=== PATIENT | female | born 1955 | race Caucasian/White ===

== ENCOUNTER → 2020-02-03 17:15 | Outpatient (BNVA) | payer OTHER, SELFPAY | PROVIDERS: Family Provider Family Medicine; PCP Family Medicine; Visit Provider Nurse Practitioner Family | DX: I10 Essential (primary) hypertension (principal); E04.1 Nontoxic single thyroid nodule; E78.2 Mixed hyperlipidemia | CPT/HCPCS: 80053; 84443; 85025 ==

== ENCOUNTER → 2020-02-06 12:02 | Outpatient (BNVA) | payer OTHER, SELFPAY | PROVIDERS: Family Provider Family Medicine; PCP Family Medicine; Visit Provider Nurse Practitioner Family | DX: E04.1 Nontoxic single thyroid nodule (principal); I10 Essential (primary) hypertension; E78.2 Mixed hyperlipidemia | CPT/HCPCS: 84439; 84481 ==

== ENCOUNTER 2021-01-12 06:36 | Emergency (ER) | payer OTHER, SELFPAY ==
[2021-01-12 06:41] VITALS: BP 158/95; PULSE 80; RESP 18; TEMP 36.3; O2SAT 99; BMI 25.7
[2021-01-12 06:44] VITALS: PULSE 82
--- NOTE | 2021-01-12 06:48 | XRR_ITS ---
PROCEDURE INFORMATION: Exam: XR Right Knee Exam date and time: 01/12/2021 7:05 AM Age: 65 years old Clinical indication: Injury or trauma; Other: Twist; Sprain or strain; Patella or knee; Right; Additional info: Pain TECHNIQUE: Imaging protocol: XR Right knee. Views: 3 views. COMPARISON: No relevant prior studies available. FINDINGS: Bones/joints: No acute fracture or dislocation. 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 The joint spaces are well maintained. Soft tissues: Normal. XR/XR knee RT 3V* [id number] IMPRESSION: No acute injury.
--- NOTE | 2021-01-12 06:50 | ED_ITS ---
HPI - Extremity Problem General: Chief complaint: Extremity Injury, Lower Stated complaint: RLE INJURY History of Present Illness: HPI Narrative: 65-year-old female presents emergency room with complaint of right knee pain. 4 days ago she fell injuring her right knee she can slip Tylenol retaining wall and irritated the inner aspect of her right knee he has some bruising was able to walk for about the first couple of days now is able to walk on it but is still quite painful. She been taking ibuprofen without relief no previous injury to the knee. She has noted some mild swelling as well. MD Complaint: joint pain Onset (ago): day(s) (4) Pain Consistency: constant Location: right and knee Quality: aching Radiation: none Relieving factors: immobilization and rest Exacerbating factors: weight bearing and walking Associated symptoms: Deny arthralgias, chest pain, fever(s), myalgias, rash or short of breath Review of Systems Const: Denies: fever(s) ENMT: Denies: throat pain, ear or mastoid pain, nasal discharge or nasal c ongestion Card: Denies: chest pain Resp: Denies: dyspnea, productive cough or non-productive cough GI: Denies: abdominal pain, nausea, vomiting, hematemesis, coffee ground emesis, diarrhea, constipation, bloating, hematochezia or melena : Denies: flank pain, difficulty voiding, dysuria, urinary frequency or urinary urgency Skin/Breast: Denies: rash PFSH ED PFSH: Medical History Thyroid nodule Social History Smoking and tobacco status: never smoked Second hand smoke exposure: No Alcohol intake: never Lives independently: No Household members: family Marital status: Current occupational status: employed Current [place]: [employer] [place] History of recent travel: Yes ([place] ) Details: Dec, 2019 x week Out of state: Yes Current gender identity: Female Physical Exam Const: COMMON NORMALS: no acute distress GENERAL APPEARANCE: cooperative and comfortable ORIENTATION/CONSCIOUSNESS: Yes awake, Yes oriented to person, Yes oriented to place and Yes oriented to time HENMT: COMMON NORMALS: normocephalic, atraumatic and hearing grossly normal bilaterally HEAD & SCALP: normocephalic and atraumatic Neck/C-Spine: COMMON NORMALS: no JVD Resp: COMMON NORMALS: normal respiratory effort, No retractions, No use of accessory muscles and clear to auscultation bilaterally AUSCULTATION: clear to auscultation bilaterally Cardio: COMMON NORMALS: no JVD, regular rate, regular rhythm and No murmurs present (Cardio) RATE: regular rate RHYTHM: regular rhythm GI: COMMON NORMALS: Soft to palpation and No hepatosplenomegaly present AUSCULTATION: Yes normoactive bowel sounds PALPATION: Yes Soft to palpation, No Tenderness to palpation present (GI), No Guarding due to palpation present (GI) and Yes No hepatosplenomegaly present Extremity: COMMON NORMALS: normal to inspection, capillary refill normal, no clubbing, cyanosis or edema, no calf tenderness and no pedal edema NARRATIVE EXTREMITY EXAM: No ligamentous instability or laxity mild swelling of the right knee joint. Neuro: SENSORIUM/ORIENTATION: Yes oriented to person, Yes oriented to place and Yes oriented to time Skin: COMMON NORMALS: no rashes or lesions noted GENERAL SKIN EXAM: no rashes or lesions noted Course Vital Signs: Vital signs: Vital Signs Temperature 97.3 F L 01/12/21 06:41 Pulse Rate 82 01/12/21 06:44 Respiratory Rate 18 01/12/21 06:41 Blood Pressure 158/95 01/12/21 06:41 Pulse Oximetry 99 01/12/21 06:41 MDM - Extremity (Nontraumatic) MDM Narrative: Medical decision making narrative: No acute fracture. We will go ahead and discharge home immobilizer for the knee nonweightbearing with crutches anti-inflammatories ice if not improving in next few days follow-up with primary care to reevaluate for possible advanced imaging Discharge Plan Discharge Patient Disposition: Home Clinical Impression: Right knee sprain Condition: Stable Prescriptions: New diclofenac sodium 75 mg tablet,delayed release (DR/EC) 75 mg PO Q12H PRN (Reason: pain) Qty: 20 RF: 0 No Action levothyroxine 25 mcg tablet 25 mcg PO DAILY Qty: 30 RF: 1 lisinopril 20 mg tablet See Rx Instructions .ROUTE .COMPLEX Qty: 30 RF: 2 Discharge Orders: Discharge ED (Routine); Ordered 01/12/21 Ordered By: Benjamin Harvey Referrals: Yancy Thomas FNP [Primary Care Provider] - Discharge Diet: Usual diet Discharge Activity: Limit activity as instructed Patient Instructions: Opioid Safety Activity Restrictions/Additional Instructions: Immobilizer and crutches for the next 4 to 5 days. If not beginning to improve follow-up with primary care for reevaluation and possible advanced imaging. Coding Level of Care Code ED Risk Control Manager for Juliet Fwd Exam Comprehensive
[2021-01-12] MEDS: HYDROcodone-acetaminophen 5-325 mg Tablet 1 TAB PO (07:18)
[2021-01-12 07:49] VITALS: BP 136/88; PULSE 79; RESP 18; O2SAT 94
== END 2021-01-12 07:50 | disposition home or self-care (01) ==
PROVIDERS: Emergency Provider Family Medicine; PCP Nurse Practitioner Family
DX: S83.91XA Sprain of unspecified site of right knee, initial encounter (principal); W19.XXXA Unspecified fall, initial encounter
CPT/HCPCS: 73562; 99283

== ENCOUNTER → 2021-01-15 13:55 | Outpatient (BNVA) | payer OTHER, SELFPAY | PROVIDERS: PCP Nurse Practitioner Family; Visit Provider Nurse Practitioner Family | DX: M25.561 Pain in right knee (principal); S83.91XA Sprain of unspecified site of right knee, initial encounter | CPT/HCPCS: 73590 ==

== ENCOUNTER 2021-01-22 12:10 | Emergency (ER) | payer OTHER, SELFPAY ==
[2021-01-22 12:19] VITALS: BP 113/69; PULSE 84; RESP 18; TEMP 37; O2SAT 94; BMI 27.4
[2021-01-22 12:25] VITALS: BP 138/92; PULSE 92; O2SAT 95
--- NOTE | 2021-01-22 12:36 | XR_ITS ---
WS: [id number] Right knee, 3 views, 01/22/2021 Clinical Data: fall Comparison: None. Findings: No fractures or dislocations are seen. The joint spaces are normal. The patella is intact. The soft t issues are unremarkable. XR/XR knee RT 3V* [id number] Impression: Negative right knee. Kellgren-Sukhwinder Classification: grade 0 (none): definite absence of x-ray carrillo nges of osteoarthritis
--- NOTE | 2021-01-22 12:39 | W.ED.EXTPRO ---
HPI - Extremity Problem General: Chief complaint: Extremity Injury, Lower Stated complaint: R KNEE INJURY Time Seen by Provider: 01/22/21 12:30 History of Present Illness: HPI Narrative: The patient is a 65-year-old female who comes to the ER complaining of right knee pain. She injured it approximately 2 weeks ago when she fell off a retaining wall. She was seen here 4 days after the fall with an x-ray which was negative. Recommended she get an MRI. She saw her nurse practitioner who is filling out the prior authorization for the MRI of her knee. This morning she was going up some steps and felt a pop and twist of her same right knee and complains of increased pain. MD Complaint: extremity pain, extremity swelling and joint pain Onset (ago): hour(s) (1) Pain Consistency: constant Location: right Severity scale (1-10): 10 Quality: sharp Radiation: none Associated symptoms: Reports no associated symptoms; Deny chest pain or rash Review of Systems General: Reports: 10 or more systems reviewed and unremarkable except in HPI and below Const: Denies: fatigue Eyes: Denies: change in vision, blurry vision or eye redness ENMT: Denies: throat pain, swelling of lips/tongue, ear or mastoid pain or nasal congestion Card: Denies: chest pain, palpitations, irregular heart rhythm, edema, dyspnea on exertion or orthopnea Resp: Denies: dyspnea, productive cough or non-productive cough GI: Denies: abdominal pain, diarrhea or GI cramping : Denies: flank pain, difficulty voiding, urinary frequency or urinary urgency Musc: Reports: joint pain and joint swelling; Denies: neck pain, back pain, extremity pain, joint redness, limited range of motion or muscle weakness Skin/Breast: Denies: rash, pruritus, erythema, skin pain or skin tenderness Neuro: Denies: headache(s), numbness in extremities, weakness in extremities, sensory changes, difficulty walking, dizziness, confusion or Slurred speech present Psych: Denies: anxiety or depression Endo: Denies: polyuria All/Imm: Denies: urticaria, throat swelling or tongue swelling PFSH ED PFSH: Medical History Thyroid nodule Social History Smoking and tobacco status: never smoked Second hand smoke exposure: No Alcohol intake: never Lives independently: No Household members: family Marital status: service: No Current occupational status: employed Current occupation: [employer] – [place] [employer] History of recent travel: No Current gender identity: Female Special gerber needs: No Physical Exam Const: COMMON NORMALS: no acute distress, average body habitus, patient oriented x3, no limitations, healthy appearing, alert and well nourished GENERAL APPEARANCE: cooperative, comfortable, well kempt and well developed ORIENTATION/CONSCIOUSNESS: Yes awake, Yes oriented to person, Yes oriented to place and Yes oriented to time HENMT: COMMON NORMALS: normocephalic, external ears normal and Normal external nose present HEAD & SCALP: normal to inspection and normocephalic NOSE: Normal external nose present EXTERNAL EAR: Yes external ears normal MOUTH: Normal oral and palatal mucosa present THROAT: posterior oropharynx normal Eye: COMMON NORMALS: Equal, round and reactive pupils present and EOMs intact bilaterally GENERAL EYE: appearance normal, both eyes and all related structures PUPIL: Yes Equal, round and reactive pupils present Neck/C-Spine: COMMON NORMALS: full ROM, no lymphadenopathy, no meningeal signs and no JVD GENERAL: Yes normal visual inspection Lymph: LYMPHATIC: no lymphadenopathy noted Chest: COMMONS NORMALS: normal inspection of the chest and normal palpation of entire chest wall Resp: COMMON NORMALS: normal respiratory effort, No retractions, No use of accessory muscles, clear to auscultation bilaterally and percussion normal EFFORT & INSPECTION: Yes able to speak in complete sentences AUSCULTATION: clear to auscultation bilaterally PERCUSSION: percussion normal Cardio: COMMON NORMALS: no JVD, regular rate, regular rhythm, S1 normal heart sound present, S2 normal heart sound present and Peripheral pulses 2+ throughout RATE: regular rate RHYTHM: regular rhythm HEART SOUNDS: S1 normal heart sound present and S2 normal heart sound present PERIPHERAL PULSES: Peripheral pulses 2+ throughout GI: COMMON NORMALS: Normal to inspection, nondistended, normoactive bowel sounds present, Soft to palpation, non-tender and no masses INSPECTION: Yes normal to inspection PALPATION: Yes Soft to palpation : COMMON NORMALS: Yes no CVA tenderness BLADDER/KIDNEY EXAM: Yes no CVA tenderness Back/Pelvis: COMMON NORMALS: no CVA tenderness, thoracic and lumbar spine normal to inspection, no thoracic nor lumbar tenderness and thoraco-lumbar ROM normal Extremity: COMMON NORMALS: normal to inspection, full ROM, capillary refill normal, no joint enlargement and no pedal edema NARRATIVE EXTREMITY EXAM: Wearing straight leg splint on the right leg from previous injury. Right knee pain swelling and tenderness. Major ligaments appear intact though exam limited by pain. GENERAL: Yes normal exam except as noted Neuro: COMMON NORMALS: patient oriented x3, CN's II-XII intact bilaterally, moves all extremities, no focal motor deficits, no sensory deficits noted and gait normal SENSORIUM/ORIENTATION: Yes alert, Yes oriented to person, Yes oriented to place and Yes oriented to time MENINGEAL SIGNS: Yes no meningeal signs Psych: COMMON NORMALS: mental status grossly normal, Normal thought process present, cooperative, normal affect and speech normal APPEARANCE: Yes well kempt ATTITUDE: Yes calm SPEECH: Yes normal speech THOUGHT PROCESS: Normal thought process present Skin: COMMON NORMALS: no rashes or lesions noted GENERAL SKIN EXAM: no rashes or lesions noted Course Vital Signs: Vital signs: Vital Signs Temperature 98.6 F 01/22/21 12:19 Pulse Rate 84 01/22/21 12:19 Respiratory Rate 18 01/22/21 12:19 Blood Pressure 113/69 01/22/21 12:19 Pulse Oximetry 94 01/22/21 12:19 MDM - Extremity (Nontraumatic) MDM Narrative: Medical decision making narrative: Patient came today after a misstep and increased pain in her right knee which is already injured. She likely again sprained it. X-ray negative for any acute pathology. She is working on getting an outpatient MRI preapproved with her primary care physician. I recommended she continue to do that and then follow-up with orthopedic surgery. She understands and agrees with the plan and will do so. Discharged with hydrocodone prescription for her acute pain. Do not mix with drugs, alcohol, nor operate machinery while using this medication. ER with worsening symptoms at any time Discharge Plan Discharge Patient Disposition: Home Clinical Impression: Knee sprain Condition: Stable Prescriptions: New hydrocodone-acetaminophen 5-325 mg tablet 1 tab PO Q6H PRN (Reason: pain) Qty: 15 RF: 0 No Action meloxicam 15 mg tablet 15 mg PO DAILY Qty: 30 RF: 1 levothyroxine 25 mcg tablet 25 mcg PO DAILY Qty: 30 RF: 1 lisinopril 20 mg tablet See Rx Instructions .ROUTE .COMPLEX Qty: 30 RF: 2 Discharge Orders: Discharge ED (Routine); Ordered 01/22/21 Ordered By: Ulices Boss Referrals: Yancy Thomas FNP [Primary Care Provider] - Discharge Diet: Advance as tolerated Discharge Activity: Limit activity as instructed Patient Instructions: Knee Sprain (ED), Knee Immobilizer (ED), Opioid Safety Activity Restrictions/Additional Instructions: You have likely again sprained your right knee. Please continue to work with your primary care physician to get an MRI of that right knee and then follow-up with an orthopedic surgeon depending on the result. Return to the ER at anytime with worsening symptoms. Continue to wear the knee immobilizer as recommended until your primary care physician says it is okay to take it off. Take the hydrocodone only for severe pain and do not mix with drugs, alcohol, nor operate machinery while using it. Coding Level of Care Code ED Business Integration Manager for Juliet Fwmarcello Exam Comprehensive
[2021-01-22] MEDS: HYDROcodone-acetaminophen 5-325 mg Tablet 2 TAB PO (12:42)
[2021-01-22 14:08] VITALS: BP 114/77; PULSE 84; O2SAT 95
== END 2021-01-22 14:08 | disposition home or self-care (01) ==
PROVIDERS: Emergency Provider Family Medicine; PCP Nurse Practitioner Family
DX: S83.91XA Sprain of unspecified site of right knee, initial encounter (principal); W17.89XA Other fall from one level to another, initial encounter
CPT/HCPCS: 73562; 99283

== ENCOUNTER 2021-02-02 14:08 | Outpatient (CLI) | payer OTHER, SELFPAY ==
--- NOTE | 2021-02-02 14:43 | MR_ITS ---
WS: [id number] MRI RIGHT KNEE NONCONTRAST TECHNIQUE: Axial PD, coronal PD fat sat, coronal PD, sagittal PD, and sagittal PD fat-sat images obta ined. CLINICAL INFORMATION: M25.561 - Pain in right knee COMPARISON: None. FINDINGS: Distal quadriceps and patella tendons are intact. Small suprapatellar effusion. Normal ACL and PCL. N ormal medial and lateral meniscus. No acute appearing meniscal tears. Normal medial and lateral colla teral ligaments. Mild chondromalacia involving the medial and lateral joint compartments. Moderate chondromalacia patella. Hypertrophic patella. Normal medial and lateral patellar retinaculum . Medial and lateral collateral ligaments are normal. Small popliteal cyst measuring 8.8 x 11.3 mm x 17.7 mm AP by transverse by craniocaudal. MR/MR knee RT wo con* [id number] IMPRESSION: 1. Distal quadriceps and patella tendons are intact. 2. Small suprapatellar effusion. 3. Mild chronic thinning of the medial lateral meniscus. No acute appearing me niscal tears. 4. Moderate chondral malacia patella. No subchondral edema. 5. Small popliteal cyst measuring 8.8 x 11.3 x 17.7 mm AP by transverse by aircraft engine installer niocaudal. Outbridge grading: grade II: blister-like swelling/fraying of articular cartila ge extending to surface
== END 2021-02-02 14:09 | disposition home or self-care (01) ==
PROVIDERS: PCP Nurse Practitioner Family; Visit Provider Nurse Practitioner Family
DX: M25.561 Pain in right knee (principal); M25.461 Effusion, right knee; M22.41 Chondromalacia patellae, right knee; M71.21 Synovial cyst of popliteal space [Baker], right knee
CPT/HCPCS: 73721

== ENCOUNTER → 2021-02-10 13:45 | Outpatient (BNVA) | payer OTHER, SELFPAY | PROVIDERS: PCP Nurse Practitioner Family; Referring Provider Nurse Practitioner Family; Visit Provider Specialist | DX: M25.561 Pain in right knee (principal) | CPT/HCPCS: 73560; 73565 ==

== ENCOUNTER 2021-02-10 16:26 | Outpatient (CLI) | payer OTHER, SELFPAY | END 2021-02-10 16:27 | disposition home or self-care (01) | LOC: SPT 16:27 | PROVIDERS: PCP Nurse Practitioner Family; Visit Provider Specialist | DX: Z46.89 Encounter for fitting and adjustment of other specified devices (principal); M25.561 Pain in right knee | CPT/HCPCS: 97760; L1812 ==

== ENCOUNTER → 2021-04-02 11:02 | Outpatient (BNVA) | payer OTHER, SELFPAY | PROVIDERS: PCP Nurse Practitioner Family; Visit Provider Nurse Practitioner Family | DX: Z20.822 Contact with and (suspected) exposure to COVID-19 (principal) | CPT/HCPCS: 87635 ==

== ENCOUNTER → 2021-04-22 08:22 | Outpatient (BNVA) | payer OTHER, MEDICARE, SELFPAY | PROVIDERS: PCP Nurse Practitioner Family; Visit Provider Nurse Practitioner Family | DX: E78.2 Mixed hyperlipidemia (principal); G25.81 Restless legs syndrome; G47.00 Insomnia, unspecified; I10 Essential (primary) hypertension; R20.2 Paresthesia of skin; E04.1 Nontoxic single thyroid nodule | CPT/HCPCS: 80053; 80061; 82465; 82607; 84443; 85025 ==

== ENCOUNTER → 2021-04-23 08:54 | Outpatient (BNVA) | payer MEDICARE, SELFPAY | PROVIDERS: PCP Nurse Practitioner Family; Visit Provider Nurse Practitioner Family | DX: R79.89 Other specified abnormal findings of blood chemistry (principal) | CPT/HCPCS: 84439 ==

== ENCOUNTER → 2021-05-04 10:56 | Outpatient (BNVA) | payer MEDICARE, SELFPAY | PROVIDERS: PCP Nurse Practitioner Family; Visit Provider Nurse Practitioner Family | DX: E03.9 Hypothyroidism, unspecified (principal); G25.81 Restless legs syndrome; I10 Essential (primary) hypertension; M53.3 Sacrococcygeal disorders, not elsewhere classified; G47.00 Insomnia, unspecified; E78.2 Mixed hyperlipidemia; Z79.899 Other long term (current) drug therapy | CPT/HCPCS: 82306; 83735; 84439; 84443; 84481 ==

== ENCOUNTER 2021-05-17 17:08 | Inpatient (IN) | payer MEDICARE, SELFPAY ==
[2021-05-17 17:14] VITALS: BP 159/89; PULSE 71; RESP 18; TEMP 36.8; O2SAT 98; BMI 27.3
--- NOTE | 2021-05-17 17:29 | XRR_ITS ---
PROCEDURE INFORMATION: Exam: XR Chest Exam date and time: 05/17/2021 5:29 PM Age: 66 years old Clinical indication: Shortness of breath; Additional info: Dyspnea/cough TECHNIQUE: Imaging protocol: XR of the chest. Views: 1 view. COMPARISON: CR XR knees AP WB w RT lmt ORTH 02/10/2021 1:52 PM FINDINGS: Lungs: Unremarkable. No consolidation. Pleural spaces: Unremarkable. No pleural effusion. No pneumothorax. Heart/Mediastinum: Unremarkable. No cardiomegaly. Bones/joints: Unremarkable. XR/XR chest 1V portable [id number] IMPRESSION: No acute findings. Radiation Dose CTDIVOL = (mGy): DLP = (mGy-cm)
--- NOTE | 2021-05-17 17:35 | CTR_ITS ---
PROCEDURE INFORMATION: Exam: CT Abdomen And Pelvis With Contrast Exam date and time: 05/17/2021 5:35 PM Age: 66 years old Clinical indication: Other: Diarrhea; Abdominal pain; Localized; Left lower quadrant (llq); Prior surgery; Surgery type: Gb, tubal; Additional info: Abd pain TECHNIQUE: Imaging protocol: Computed tomography of the abdomen and pelvis with contrast. Radiation optimization: All CT scans at this facility use at least one of these dose optimization techniques: automated exposure control; mA and/or kV adjustment per patient size (includes targeted exams where dose is matched to clinical indication); or iterative reconstruction. Contrast material: OMNI 300; Contrast volume: 95 ml; Contrast route: INTRAVENOUS (IV); COMPARISON: CT abdomen pelvis wo con [id number] 08/31/2018 11:55 AM RADIATION DOSE METRICS: Total DLP (mGy-cm): 1242.07 FINDINGS: Mediastinal space: Moderate sized hiatal hernia. Liver: Normal. No mass. Gallbladder and bile ducts: Cholecystectomy. Nondilated biliary system. Pancreas: Normal. No ductal dilation. Spleen: Normal. No splenomegaly. Adrenal glands: Normal. No mass. Kidneys and ureters: 9 mm simple right renal upper pole cortical cyst. Negative for hydronephrosis. No renal stones. No dedicated renal follow-up recommended. Stomach and bowel: Diverticulosis coli. Mild degree of pericolonic fat stranding posterior to the mid descending left colon. Focal hyperdense diverticulum on axial series 2, image 35 and coronal image 31. Negative for bowel obstruction. Appendix: No evidence of appendicitis. Intraperitoneal space: No free intraperitoneal air. No loculated intraperitoneal fluid collection. Vasculature: Patent vascular structures. Mild degree of atherosclerotic plaque in the abdominal aorta. Lymph nodes: Unremarkable. No enlarged lymph nodes. Urinary bladder: Unremarkable as visualized. Reproductive: Unremarkable as visualized. Bones/joints: Unremarkable. No acute fracture. Soft tissues: Unremarkable. CT/CT abdomen pelvis w con* [id number] IMPRESSION: Acute diverticulitis is suspected in the mid descending left colon. COMMENTS: Consistent with the [employer]'s Incidental Findings Committee white paper (J Am Zoe Radiol 2018): Any incidental renal lesion less than 1 cm or classified as too small to characterize, or any incidental cystic renal lesion characterized as simple-appearing, is likely benign. No follow-up imaging is recommended for these lesions per consensus recommendations based on imaging criteria. Radiation Dose CTDIVOL = (mGy): DLP = 1242.07 (mGy-cm)
--- NOTE | 2021-05-17 17:39 | ED_ITS ---
Documented by User: Benjamin Harvey DO 05/18/21 07:17 HPI - Abdominal Pain General: Chief Complaint: Abdominal Pain Stated Complaint: Sent by Dr Markham Time Seen by Provider: 05/17/21 17:25 History of Present Illness: HPI narrative: 66-year-old female presents emergency room with complaints of abdominal pain. She was seen as an outpatient last week and started on Cipro and Flagyl for diverticulitis follow-up today with your primary care doctor is not improved significantly was referred to the emergency room. MD elicited complaint: abdominal pain Pertinent past history: diverticulitis Onset (ago): day(s) (4) Pain Consistency: constant Location: Diffuse Severity: moderate Quality: cramping Radiation: none Exacerbating factors: movement Relieving factors: rest Associated Symptoms: Reports GI cramping and melena (After taking Pepto-Bismol); Denies anorexia, belching, bloating, change in bowel habits, change in stool character, chills, coffee ground emesis, constipation, diarrhea, dyspepsia, dysuria, excessive flatus, fever(s), heartburn, hematochezia, hematuria, hematemesis, fecal incontinence, loose stools, nausea, poor appetite, syncope and vomiting Review of Systems Const: Denies: fever(s) or chills ENMT: Denies: throat pain, ear or mastoid pain, nasal discharge or nasal congestion Card: Denies: syncope Resp: Denies: dyspnea, productive cough or non-productive cough GI: Reports: GI cramping and melena (After taking Pepto-Bismol); Denies: nausea, vomiting, hematemesis, coffee ground emesis, heartburn, diar bijan, constipation, bloating, belching, excessive flatus, fecal incontinence, change in bowel habits, change in stool character or hematochezia : Denies: dysuria or hematuria Skin/Breast: Denies: rash or pruritus PFSH ED PFSH: Medical History Thyroid nodule Social History Smoking and tobacco status: never smoked Second hand smoke exposure: No Alcohol intake: never Lives independently: No Household members: family Marital status: service: No Current occupational status: employed Current [place]: [employer] [place] History of recent travel: No Current gender identity: Female Special gerber needs: No Physical Exam Const: COMMON NORMALS: no acute distress GENERAL APPEARANCE: cooperative ORIENTATION/CONSCIOUSNESS: Yes awake, Yes oriented to person, Yes oriented to place and Yes oriented to time HENMT: COMMON NORMALS: normocephalic, atraumatic and hearing grossly normal bilaterally HEAD & SCALP: normocephalic and atraumatic Neck/C-Spine: COMMON NORMALS: no JVD Resp: COMMON NORMALS: normal respiratory effort, No retractions, No use of accessory muscles and clear to auscultation bilaterally AUSCULTATION: clear to auscultation bilaterally Cardio: COMMON NORMALS: no JVD, regular rate, regular rhythm and No murmurs present (Cardio) RATE: regular rate RHYTHM: regular rhythm GI: COMMON NORMALS: No hepatosplenomegaly present AUSCULTATION: Yes normoactive bowel sounds PALPATION: Yes Tenderness to palpation present (GI) (moderately diffuse), No Guarding due to palpation present (GI) and Yes No hepatosplenomegaly present Extremity: COMMON NORMALS: normal to inspection, capillary refill normal, no clubbing, cyanosis or edema, no calf tenderness and no pedal edema Neuro: SENSORIUM/ORIENTATION: Yes oriented to person, Yes oriented to place and Yes oriented to time Skin: COMMON NORMALS: no rashes or lesions noted GENERAL SKIN EXAM: no rashes or lesions noted Course Vital Signs: Vital signs: Vital Signs Temperature 98.0 F 05/18/21 03:13 Pulse Rate 68 05/18/21 03:13 Respiratory Rate 17 05/18/21 03:13 Blood Pressure 122/79 05/18/21 03:13 Pulse Oximetry 93 05/18/21 03:13 MDM - Abdominal Pain MDM Narrative: Medical decision making narrative: Care turned over to Dr. Tucker changes shift please see his notes for final diagnosis and disposition. Lab Data: Labs: Lab Results 05/17/21 05/17/21 05/17/21 18:27 18:27 18:27 WBC 6.1 10^3/uL 10^3/ uL (4.0-10.0) RBC 4.22 10^6/uL 10^6 /uL (4.1-5.3) Hgb 12.9 g/dL g/dL (11.5-15.3) Hct 37.7 % % (37.0-47.0) MCV 89.3 fl fl (81-99) MCH 30.6 pg pg (28.0-34.0) MCHC 34.2 g/dL g/dL (30.0-36.0) RDW 11.9 % L % (12.1-15.1) Plt Count 206 10^3/cmm 10^3 /cmm (130-400) MPV 10.4 fL fL (7.4-10.4) Neut % (Auto) 58.2 % % Lymph % (Auto) 32.7 % % Edwards % (Auto) 6.9 % % Eos % (Auto) 1.3 % % Baso % (Auto) 0.7 % % Neut # (Auto) 3.57 10^3/uL 10^3 /uL (1.8-7.7) Lymph # (Auto) 2.0 10^3/uL 10^3/ uL (0.8-4.8) Edwards # (Auto) 0.4 10^3/uL 10^3/ uL (0.2-0.9) Eos # (Auto) 0.1 10^3/uL 10^3/ uL (0.0-0.8) Baso # (Auto) 0.0 10^3/uL 10^3/ uL (0.0-0.1) Nucleated RBC % (a uto) 0 % % Nucleated RBCs # 0.0 /100WBC /100W BC Sodium 136 mmol/L mmol/L (136-145) Potassium 3.8 mmol/L mmol/L (3.5-5.1) Chloride 103 mmol/L mmol/L (98-107) Carbon Dioxide 23 mmol/L mmol/L (22-29) Anion Gap 13.8 (5-19) BUN 12 mg/dL mg/dL (8-23) Creatinine 0.6 mg/dL mg/dL (0.5-0.9) GFR Calculation 100.3 mL/min mL/m in (90-130) Glucose 82 mg/dL mg/dL (65-115) Calculated Osmolal ity 281 mOsm/kg L mOs m/kg (285-295) Lactic Acid 1.3 mmol/L mmol/L (0.5-2.2) Calcium 9.5 mg/dL mg/dL (8.5-10.5) Total Bilirubin 0.2 mg/dL mg/dL (0.15-1.2) AST 17 U/L U/L (0-32) ALT 24 U/L U/L (0-33) Alkaline Phosphata se 73 IU/L IU/L (35-105) Creatine Kinase 115 U/L U/L (26-192) Total Protein 7.4 g/dL g/dL (6.6-8.7) Albumin 4.5 g/dL g/dL (3.5-5.2) Globulin 2.9 g/dL g/dL (1.3-4.6) Discharge Plan Discharge Admit Provider: Heather Lamar Sign Out Sign Out Data: Patient Sign Out occurred on 05/17/21 at 18:32. Patient's care was discussed, and care was transferred from to Marija Crow MD. Coding Level of Care Code ED Filter Cloth Maker for Chg Fwd Exam Comprehensive Documented by User: Marija Crow MD 05/18/21 02:18 HPI - Abdominal Pain General: Chief Complaint: Abdominal Pain Stated Complaint: Sent by Dr Markham Time Seen by Provider: 05/17/21 17:25 PFS ED PFSH: Medical History Thyroid nodule Social History Smoking and tobacco status: never smoked Second hand smoke exposure: No Alcohol intake: never Lives independently: No Household members: family Marital status: service: No Current occupational status: employed Current [place]: [employer] [place] History of recent travel: No Current gender identity: Female Special gerber needs: No Course Vital Signs: Vital signs: Vital Signs Temperature 98.0 F 05/18/21 03:13 Pulse Rate 68 05/18/21 03:13 Respiratory Rate 17 05/18/21 03:13 Blood Pressure 122/79 05/18/21 03:13 Pulse Oximetry 93 05/18/21 03:13 MDM - Abdominal Pain MDM Narrative: Medical decision making narrative: 66-year-old female with history of diverticulitis presents the emergency room with significant abdominal pain worse in the left lower quadrant not improving despite ciprofloxacin and metronidazole prescribed outpatient. On exam, patient is hemodynamic stable with moderate tenderness to palpation in the left abdomen. Rectal exam did not show any melena. Fecal occult negative. Imaging is consistent with diverticulitis. Patient has minimal white count. Patient received 4 mg morphine, 1 mg Dilaudid without significant improvement in pain. Patient will be admitted to the hospital for pain management, IV antibiotics, and failure of outpatient treatment. Disposition: Admission Lab Data: Labs: Lab Results 05/17/21 05/17/21 05/17/21 18:27 18:27 18:27 WBC 6.1 10^3/uL 10^3/ uL (4.0-10.0) RBC 4.22 10^6/uL 10^6 /uL (4.1-5.3) Hgb 12.9 g/dL g/dL (11.5-15.3) Hct 37.7 % % (37.0-47.0) MCV 89.3 fl fl (81-99) MCH 30.6 pg pg (28.0-34.0) MCHC 34.2 g/dL g/dL (30.0-36.0) RDW 11.9 % L % (12.1-15.1) Plt Count 206 10^3/cmm 10^3 /cmm (130-400) MPV 10.4 fL fL (7.4-10.4) Neut % (Auto) 58.2 % % Lymph % (Auto) 32.7 % % Edwards % (Auto) 6.9 % % Eos % (Auto) 1.3 % % Baso % (Auto) 0.7 % % Neut # (Auto) 3.57 10^3/uL 10^3 /uL (1.8-7.7) Lymph # (Auto) 2.0 10^3/uL 10^3/ uL (0.8-4.8) Edwards # (Auto) 0.4 10^3/uL 10^3/ uL (0.2-0.9) Eos # (Auto) 0.1 10^3/uL 10^3/ uL (0.0-0.8) Baso # (Auto) 0.0 10^3/uL 10^3/ uL (0.0-0.1) Nucleated RBC % (a uto) 0 % % Nucleated RBCs # 0.0 /100WBC /100W BC Sodium 136 mmol/L mmol/L (136-145) Potassium 3.8 mmol/L mmol/L (3.5-5.1) Chloride 103 mmol/L mmol/L (98-107) Carbon Dioxide 23 mmol/L mmol/L (22-29) Anion Gap 13.8 (5-19) BUN 12 mg/dL mg/dL (8-23) Creatinine 0.6 mg/dL mg/dL (0.5-0.9) GFR Calculation 100.3 mL/min mL/m in (90-130) Glucose 82 mg/dL mg/dL (65-115) Calculated Osmolal ity 281 mOsm/kg L mOs m/kg (285-295) Lactic Acid 1.3 mmol/L mmol/L (0.5-2.2) Calcium 9.5 mg/dL mg/dL (8.5-10.5) Total Bilirubin 0.2 mg/dL mg/dL (0.15-1.2) AST 17 U/L U/L (0-32) ALT 24 U/L U/L (0-33) Alkaline Phosphata se 73 IU/L IU/L (35-105) Creatine Kinase 115 U/L U/L (26-192) Total Protein 7.4 g/dL g/dL (6.6-8.7) Albumin 4.5 g/dL g/dL (3.5-5.2) Globulin 2.9 g/dL g/dL (1.3-4.6) Imaging Data ^: Other Imaging: Radiologist's impression: [address] [id number] Scan ReportSigned Patient: Luis Banerjee #: [id number]: 6Acct#:[id number]/Sex: 66 / FADM Date: 05/17/21Loc: ERRoom/Bed:Attending Dr: Ordering Provider/Ordering MD: Benjamin Harvey DO Date of Service: 05/17/21 Procedure(s): CT abdomen pelvis w con* [id number] Accession Number(s): [id number] Report Number: [id number] PROCEDURE INFORMATION: Exam: CT Abdomen And Pelvis With Contrast Exam date and time: 05/17/2021 5:35 PM Age: 66 years old Clinical indication: Other: Diarrhea; Abdominal pain; Localized; Left lower quadrant (llq); Prior surgery; Surgery type: Gb, tubal; Additional info: Abd pain TECHNIQUE: Imaging protocol: Computed tomography of the abdomen and pelvis with contrast. Radiation optimization: All CT scans at this facility use at least one of these dose optimization techniques: automated exposure control; mA and/or kV adjustment per patient size (includes targeted exams where dose is matched to clinical indication); or iterative reconstruction. Contrast material: OMNI 300; Contrast volume: 95 ml; Contrast route: INTRAVENOUS (IV); COMPARISON: CT abdomen pelvis wo con [id number] 08/31/2018 11:55 AM RADIATION DOSE METRICS: Total DLP (mGy-cm): 1242.07 FINDINGS: Mediastinal space: Moderate sized hiatal hernia. Liver: Normal. No mass. Gallbladder and bile ducts: Cholecystectomy. Nondilated biliary system. Pancreas: Normal. No ductal dilation. Spleen: Normal. No splenomegaly. Adrenal glands: Normal. No mass. Kidneys and ureters: 9 mm simple right renal upper pole cortical cyst. Negative for hydronephrosis. No renal stones. No dedicated renal follow-up recommended. Stomach and bowel: Diverticulosis coli. Mild degree of pericolonic fat stranding posterior to the mid descending left colon. Focal hyperdense diverticulum on axial series 2, image 35 and coronal image 31. Negative for bowel obstruction. Appendix: No evidence of appendicitis. Intraperitoneal space: No free intraperitoneal air. No loculated intraperitoneal fluid collection. Vasculature: Patent vascular structures. Mild degree of atherosclerotic plaque in the abdominal aorta. Lymph nodes: Unremarkable. No enlarged lymph nodes. Urinary bladder: Unremarkable as visualized. Reproductive: Unremarkable as visualized. Bones/joints: Unremarkable. No acute fracture. Soft tissues: Unremarkable. CT/CT abdomen pelvis w con* [id number] IMPRESSION: Acute diverticulitis is suspected in the mid descending left colon. COMMENTS: Consistent with the [employer]'s Incidental Findings Committee white paper (J Am Zoe Radiol 2018): Any incidental renal lesion less than 1 cm or classified as too small to characterize, or any incidental cystic renal lesion characterized as simple-appearing, is likely benign. No follow-up imaging is recommended for these lesions per consensus recommendations based on imaging criteria. Radiation Dose CTDIVOL = (mGy): DLP = 1242.07 (mGy-cm) Dictated By:Matias Thompson By:Matias Thompson Date/Time:05/17/216DD/ 1735 Discharge Plan Discharge Admit Provider: Heather Lamar Sign Out Sign Out Data: Patient Sign Out occurred on 05/17/21 at 18:32. Patient's care was discussed, and care was transferred from to Marija Crow MD. Coding Level of Care Code ED Filter Cloth Maker for Chg Fwd Exam Comprehensive
[2021-05-17] MEDS: iohexol 300 mg/mL 100 mL Btl IV (18:04)
[2021-05-17] MEDS: sodium chloride 0.9% 1,000 ML 999 ML IV (18:17)
[2021-05-17] MEDS: ondansetron 2 mg/ML SDV 2 mL 4 MG IVP (18:17)
[2021-05-17 18:18] VITALS: RESP 17; O2SAT 98
[2021-05-17] MEDS: morphine 4 mg/mL SDV 1 mL IVP (18:18)
[2021-05-17 18:19] VITALS: BP 150/119; PULSE 83; RESP 16; O2SAT 99
[2021-05-17 19:12] VITALS: RESP 22
[2021-05-17] MEDS: HYDROmorphone 1 mg/mL INJ 1 mL IVP (19:12)
[2021-05-17 19:17] LABS: Basophils % 0.7 %; Eosinophils # 0.1 10^3/uL (0.0-0.8); Eosinophils % 1.3 %; Hematocrit 37.7 % (37.0-47.0); Hemoglobin 12.9 g/dL (11.5-15.3); Lymphocytes % 32.7 %; Mean Corpuscular HGB Conc 34.2 g/dL (30.0-36.0); Mean Corpuscular Hemoglobin 30.6 pg (28.0-34.0); Mean Corpuscular Volume 89.3 fl (81-99); Mean Platelet Volume 10.4 fL (7.4-10.4); Monocytes # 0.4 10^3/uL (0.2-0.9); Monocytes % 6.9 %; Neutrophils # 3.57 10^3/uL (1.8-7.7); Neutrophils % 58.2 %; Nucleated Red Blood Cells % 0 %; Platelet Count 206 10^3/cmm (130-400); Red Blood Count 4.22 10^6/uL (4.1-5.3); Red Cell Distribution Width 11.9 % (12.1-15.1); White Blood Count 6.1 10^3/uL (4.0-10.0)
[2021-05-17 19:43] LABS: Alanine Aminotransferase 24 U/L (0-33); Albumin Level 4.5 g/dL (3.5-5.2); Alkaline Phosphatase 73 IU/L (35-105); Anion Gap 13.8 (5-19); Aspartate Amino Transferase 17 U/L (0-32); Blood Urea Nitrogen 12 mg/dL (8-23); Calcium 9.5 mg/dL (8.5-10.5); Carbon Dioxide 23 mmol/L (22-29); Chloride 103 mmol/L (98-107); Creatine Phosphokinase 115 U/L (26-192); Globulin 2.9 g/dL (1.3-4.6); Glomerular Filtration Rate 100.3 mL/min (90-130); Glucose 82 mg/dL (65-115); Osmolality Calculated 281 mOsm/kg (285-295); Potassium 3.8 mmol/L (3.5-5.1); Sodium 136 mmol/L (136-145); Total Bilirubin 0.2 mg/dL (0.15-1.2); Total Protein 7.4 g/dL (6.6-8.7)
[2021-05-17 19:44] LABS: Lactic Sepsis W/Reflex 1.3 mmol/L (0.5-2.2)
[2021-05-17] MEDS: metroNIDAZOLE IV 500 MG/100 ML PREMIX 100 MG IV (20:26)
[2021-05-17] MEDS: fentaNYL 50 mcg/mL INJ 2mL IVP (21:01)
[2021-05-17 21:05] VITALS: BP 144/78; PULSE 81; RESP 20; O2SAT 98
--- NOTE | 2021-05-17 21:34 | P.HP_ITS ---
Providers/Chief Complaint Admitting Physician: Heather Lamar MD Primary Care Provider: CODY Johnson Chief Complaint: Sent by Dr Markham History of Present Illness Jelly Banerjee is a 66 year old female with a past medical history of multiple episodes of diverticulitis, most recently 2 years ago, reported colonoscopy 1 year ago was normal. Presents today with 4-day history of abdominal pain and fever at the onset of symptoms up to 101 Fahrenheit. Reports the pain as being located in the left lower quadrant, cramping type, nonradiating. Associated symptoms include diarrhea 3-4 episodes per day, slight mucus noted by patient, states that it was clearing up today. Eating oatmeal only, able to tolerate p.o. intake, however has reduced oral intake secondary to her symptoms. She has been taking ciprofloxacin and metronidazole over the past 3 days without significant relief of symptoms. Was sent over by her primary care provider today due to concern for failure of outpatient therapy and for abdominal imaging. CAT scan performed in the ER shows acute diverticulitis in the mid descending left colon. Pain is currently better controlled after receiving Dilaudid and fentanyl earlier in the ER. Review of Systems General: Reports: 10 or more systems reviewed and unremarkable except in HPI and below Const: Denies: fever(s), chills or body aches Eyes: Denies: change in vision, blurry vision or photophobia ENMT: Reports: hoarseness; Denies: throat pain, enlarged tonsils, odynophagia or nasal congestion Card: Denies: chest pain, palpitations, irregular heart rhythm, edema, swelling of feet/ankles, lightheadedness, pre-syncope, dyspnea on exertion or orthopnea Resp: Denies: dyspnea, productive cough, non-productive cough, wheezing, stridor, pain on inspiration, change in phlegm color, hemoptysis or chest congestion GI: Denies: abdominal pain, nausea, vomiting, hematemesis, coffee ground emesis, dysphagia, heartburn, diarrhea, constipation, GI cramping, change in stool character, hematochezia or melena : Denies: flank pain, difficulty voiding, dysuria, urinary frequency, urinary urgency, urinary hesitancy or hematuria Musc: Denies: neck pain, back pain, extremity pain, joint swelling, joint warmth or deformity Neuro: Denies: headache(s), numbness in extremities, weakness in extremities, sensory changes, difficulty walking, frequent falls, dizziness, vertigo, behavioral changes, Slurred speech present or seizure-like activity Psych: Denies: anxiety, depression, suicidal ideation or homicidal ideation Endo: Denies: polyuria, polydipsia, tired all the time, cold intolerance or hot flashes Lobito/Lymph: Denies: easy bruising or easy bleeding Medications/Allergies Home Medications Medication Instructions Recorded Confirmed Last Taken Type lisinopril 20 mg tablet See Rx Instructions .ROUTE 05/04/21 05/17/21 Unknown Rx .COMPLEX #30 tab ropinirole 0.5 mg tablet 0.5 mg PO .qhs #30 tab 05/04/21 05/17/21 Unknown Rx ciprofloxacin HCl 500 mg tablet 500 mg PO BID 10 Days #20 tab 05/14/21 05/17/21 Unknown Rx metronidazole 500 mg tablet 500 mg PO TID 10 Days #30 tab 05/14/21 05/17/21 Unknown Rx Allergies Allergy/AdvReac Type Severity Reaction Status Date / Time sertraline [From Zoloft] Allergy ADR-Nausea Verified 05/17/21 15:09 tramadol Allergy ADR-Vomitin Verified 05/17/21 15:09 g PFSH Acute PFSH: Medical History Thyroid nodule Social History Smoking and tobacco status: never smoked Second hand smoke exposure: No Alcohol intake: never Lives independently: No Household members: family Marital status: service: No Current occupational status: employed Current occupation: [employer] [place] [employer] History of recent travel: No Current gender identity: Female Special gerber needs: No Vitals/I&O/Wt Last Vital Signs Temp 98.2 F 05/17/21 17:14 Pulse 81 05/17/21 21:05 Resp 20 H 05/17/21 21:05 BP 144/78 05/17/21 21:05 Pulse Ox 98 05/17/21 21:05 Weight last 48 hrs Weight 72.121 kg Physical Exam Narrative: EXAM NARRATIVE: General: No acute distress, AO x3 HEENT: PERRLA, pupils bilaterally equal and reactive, pallors not present Chest: Normal vesicular breath sounds, no added sounds, equal good air entry bilaterally CVS: S1-S2 regular, no murmurs, no tachycardia, no gallops, no rubs Abdomen: Soft, tender to palpation in the left lower quadrant, no organomegaly, bowel sounds present Neuro: No focal deficits, no facial deformity, AO x3, power 5/5 in all limbs Data : 05/17/21 18:27 05/17/21 18: Other Labs: Laboratory Results WBC 6.1 10^3/uL (4.0-10.0) 05/17/21 18: RBC 4.22 10^6/uL (4.1-5.3) 05/17/21: Hgb 12.9 g/dL (11.5-15.3) 05/17/21: Hct 37.7 % (37.0-47.0) 05/17/21: MCV 89.3 fl (81-99) 05/17/21 18: MCH 30.6 pg (28.0-34.0) 05/17/21 MCHC 34.2 g/dL (30.0-36.0) 05/17/21: RDW 11.9 % (12.1-15.1) L 05/17/21 Plt Count 206 10^3/cmm (130-400) 05/17/21 MPV 10.4 fL (7.4-10.4) 05/17/21 18: Neut % (Auto) 58.2 % 05/17/21: Lymph % (Auto) 32.7 % 05/17/21 Love % (Auto) 6.9 % 05/17/21: Eos % (Auto) 1.3 % 05/17/21 Baso % (Auto) 0.7 % 05/17/21 Neut # (Auto) 3.57 10^3/uL (1.8-7.7) 05/17/21 Lymph # (Auto) 2.0 10^3/uL (0.8-4.8) 05/17/21 18: Love # (Auto) 0.4 10^3/uL (0.2-0.9) 05/17/21: Eos # (Auto) 0.1 10^3/uL (0.0-0.8) 05/17/21 18: Baso # (Auto) 0.0 10^3/uL (0.0-0.1) 05/17/21 18:27 Nucleated RBC % (auto) 0 % 05/17/21 18: Nucleated RBCs # 0.0 /100WBC 05/17/21 18: Sodium 136 mmol/L (136-145) 05/17/21 18: Potassium 3.8 mmol/L (3.5-5.1) 05/17/21 18: Chloride 103 mmol/L (98-107) 05/17/21 18: Carbon Dioxide 23 mmol/L (22-29) 05/17/21 18: Anion Gap 13.8 (5-19) 05/17/21 18: BUN 12 mg/dL (8-23) 05/17/21 18: Creatinine 0.6 mg/dL (0.5-0.9) 05/17/21 18: GFR Calculation 100.3 mL/min (90-130) 05/17/21 18: Glucose 82 mg/dL (65-115) 05/17/21 18: Calculated Osmolality 281 mOsm/kg (285-295) L 05/17/21 18: Lactic Acid 1.3 mmol/L (0.5-2.2) 05/17/21 18: Calcium 9.5 mg/dL (8.5-10.5) 05/17/21 18: Total Bilirubin 0.2 mg/dL (0.15-1.2) 05/17/21 18: AST 17 U/L (0-32) 05/17/21 18: ALT 24 U/L (0-33) 05/17/21 18: Alkaline Phosphatase 73 IU/L (35-105) 05/17/21 18: Creatine Kinase 115 U/L (26-192) 05/17/21 18: Total Protein 7.4 g/dL (6.6-8.7) 05/17/21 18: Albumin 4.5 g/dL (3.5-5.2) 05/17/21 18: Globulin 2.9 g/dL (1.3-4.6) 05/17/21 18:27 Impressions Chest X-Ray 05/17/21 17:29 IMPRESSION: No acute findings. Radiation Dose CTDIVOL = (mGy): DLP = (mGy-cm) Abdomen/Pelvis CT 05/17/21 17:35 IMPRESSION: Acute diverticulitis is suspected in the mid descending left colon. COMMENTS: Consistent with the [place] [employer]'s Incidental Findings Committee white paper (J Am Zoe Radiol 2018): Any incidental renal lesion less than 1 cm or classified as too small to characterize, or any incidental cystic renal lesion characterized as simple-appearing, is likely benign. No follow-up imaging is recommended for these lesions per consensus recommendations based on imaging criteria. Radiation Dose CTDIVOL = (mGy): DLP = 1242.07 (mGy-cm) Micro: Microbiology 05/17/21 18:30 Blood Culture - Preliminary Blood SPECIMEN COLLECTED 05/17/21 18:25 Blood Culture - Preliminary Blood SPECIMEN COLLECTED A&P Assessment and plan (1) Diverticulitis: Acute diverticulitis Failure of outpatient antibiotic therapy with ciprofloxacin and Flagyl Start patient on empiric treatment with piperacillin tazobactam Bowel rest, n.p.o. for now, advance diet slowly as tolerated. Poor p.o. intake, mildly dehydrated, D5 normal saline at 75 cc an hour. pain control with dilaudid Status: Acute Attestations Medical Necessity Statement*: Observation admission, anticipating improvement with above treatment over the next 24 to 48 hours. Coding Level of Care Code Acute Light Rail Operator for Juliet Adams Diagnoses Diverticulitis K57.92
[2021-05-17 21:53] VITALS: BMI 27.3
[2021-05-17] MEDS: cefTRIAXone 1,000 MG in sodium chloride 0.9% (plus) 50 ML 100 MG IV (22:15)
[2021-05-17] MEDS: famotidine 20 mg/2 mL INJ IVP (22:16)
[2021-05-17] MEDS: piperacillin-tazobactam 3.375 GM in sodium chloride 0.9% (plus) 50 ML IV (22:16)
[2021-05-17 23:08] VITALS: RESP 18
[2021-05-17] MEDS: HYDROmorphone 1 mg/mL INJ 1 mL 0.5 MG IVP (23:08)
[2021-05-17] MEDS: zolpidem 5 mg Tablet 10 MG PO (23:08)
[2021-05-17] MEDS: dextrose 5%-sod chloride 0.9% 1,000 ML 75 ML IV (23:09)
--- NOTE | 2021-05-17 23:30 | ECG_ITS ---
[facility] Test Date: 2021-05-17 Pat Name: Jelly Banerjee Department: Room: 259 Gender: Female Human Resources Technician: : 1955 Requested By: Benjamin Roberto Order Number: [id number] Jocelyne MD: Garth Dotson M.D. Measurements Intervals [place] Rate: 53 P: 48 MS: 172 QRS: -3 QRSD: 94 T: 24 QT: 403 QTc: 379 Interpretive Statements SINUS BRADYCARDIA SEPTAL MYOCARDIAL INFARCTION , PROBABLY OLD [40+ ms Q WAVE IN V1/V2] Compared to ECG 10/16/2017 11:35:25 Myocardial infarct finding now present Sinus rhythm no longer present Electronically Signed On 05-18-2021 17:31:13 CDT by Garth Dotson M.D. [id number]
[2021-05-18] VITALS (9 sets, daily range): BP systolic 118–128; BP diastolic 68–80; PULSE 66–70; RESP 16–20; TEMP 36.7–37.1; O2SAT 93–98
[2021-05-18] MEDS: HYDROmorphone 1 mg/mL INJ 1 mL IVP ×2 (02:42→08:48)
[2021-05-18] MEDS: piperacillin-tazobactam 3.375 GM in sodium chloride 0.9% (plus) 50 ML IV ×3 (05:15→21:48)
--- NOTE | 2021-05-18 05:29 | PC.NURSE ---
Patient arrived from ED via cart, able to ambulate to bathroom without assist, AAOx4, c/o pain in abdomen and states its relentless and needs more pain meds as well as ambien to help her sleep. Discussed with physician and orders were recieved. Patient resting in bed, VSS, no new events, room clutter free and call light in reach, repostions self. Will continue to monitor until report and handoff patient to oncoming nurse at shift change.
[2021-05-18 05:54] LABS: Basophils % 0.8 %; Eosinophils # 0.1 10^3/uL (0.0-0.8); Eosinophils % 2.7 %; Hematocrit 36.4 % (37.0-47.0); Hemoglobin 11.8 g/dL (11.5-15.3); Lymphocytes % 41.1 %; Mean Corpuscular HGB Conc 32.4 g/dL (30.0-36.0); Mean Corpuscular Volume 92.6 fl (81-99); Mean Platelet Volume 10.3 fL (7.4-10.4); Monocytes # 0.4 10^3/uL (0.2-0.9); Monocytes % 8.6 %; Neutrophils # 2.22 10^3/uL (1.8-7.7); Neutrophils % 46.6 %; Nucleated Red Blood Cells % 0 %; Platelet Count 168 10^3/cmm (130-400); Red Blood Count 3.93 10^6/uL (4.1-5.3); Red Cell Distribution Width 11.9 % (12.1-15.1); White Blood Count 4.8 10^3/uL (4.0-10.0)
[2021-05-18 06:33] LABS: Alanine Aminotransferase 20 U/L (0-33); Albumin Level 3.9 g/dL (3.5-5.2); Alkaline Phosphatase 63 IU/L (35-105); Anion Gap 12.4 (5-19); Aspartate Amino Transferase 15 U/L (0-32); Blood Urea Nitrogen 12 mg/dL (8-23); Calcium 8.5 mg/dL (8.5-10.5); Carbon Dioxide 24 mmol/L (22-29); Chloride 107 mmol/L (98-107); Globulin 2.2 g/dL (1.3-4.6); Glomerular Filtration Rate 100.3 mL/min (90-130); Glucose 95 mg/dL (65-115); Osmolality Calculated 290 mOsm/kg (285-295); Potassium 3.4 mmol/L (3.5-5.1); Sodium 140 mmol/L (136-145); Total Bilirubin 0.2 mg/dL (0.15-1.2); Total Protein 6.1 g/dL (6.6-8.7)
[2021-05-18] MEDS: famotidine 20 mg/2 mL INJ IVP ×2 (08:48→21:49)
--- NOTE | 2021-05-18 09:49 | PC.PHAR ---
pt states she takes care of her own medications-ext med history show ambien 10mg last filled on 04/21/21 30d/s pt states she got rid of the medication and doesnt take
--- NOTE | 2021-05-18 10:36 | PC.CHAP ---
Pastoral Care Encounter/Spiritual Assessment Type of Contact [] Declined sausage linker visit [] Patient/Family/Request visit [] Outpatient visit [] Follow-up visit [] Physician referral [] Code/Alert [] Routine visit [] Staff referral [] Actively dying [] Patient sleeping [] Family support [] [] Out of room [] Palliative care [] [x] Receiving care in room [] Pre-surgical visit [] Trauma [] Long length of stay [] ICU visit [] Other: Relational/Emotional Strength [] Patient feels connected with others/family/visitors/staff [] Distress [] Loneliness/isolation [] Abandonment Spirituality of Patient [] Person of Soraya [] Attends Uatsdin of their Soraya [] Believes in Prayer [] Reads Bible or Episcopal materials [] There are Spiritual issues to be addressed Honey Producer Interventions [] Prayer [] Active listening [] Non-anxious presence [] Spiritual/emotional support [] Crisis/trauma care [] Spiritual counseling [] Bereavement support [] Provided bereavement packet [] Provided Bible/devotional materials [] Provided toy/stuffed animal, coloring book to patient or family member [] Provided Communion [] Anointing/[place] [] Salvation [] Completed spiritual assessment [] Other: Impact on Illness or Injury [] Angry [] Fearful [] Anxious [] Often cries [] Exhaustion [] Unable to work [] Unable to attend oriental orthodox [] Unable to walk/stand [] Unable to read [] Unable to drive [] Unable to eat/drink [] Unable to sleep [] Unable to be with family [] Patient intubated [] Other: Summary Time spent with patient
[2021-05-18] MEDS: dextrose 5%-sod chloride 0.9% 1,000 ML 75 ML IV (11:16)
--- NOTE | 2021-05-18 13:38 | P.PN_ITS ---
Subjective Subjective: Interval history: Patient was seen and examined at the bedside, no nausea or vomiting but endorsing pain 01/21, she still endorsing pain which comes back every 3-4 hours opioid dosage frequency increased Nurse updated Vitals/I&O/Wt Last Vital Signs Temp 98.8 F 05/18/21 07:24 Pulse 68 05/18/21 07:24 Resp 18 05/18/21 08:48 BP 118/68 05/18/21 07:24 Pulse Ox 98 05/18/21 07:24 05/17/21 05/18/21 05/18/21 22:59 06:59 14:59 Intake Total 1100 / 1100 340 / 1440 1638.75 / 1638.75 Balance 1100 / 1100 340 / 1440 1638.75 / 1638.75 Weight last 48 hrs Weight 72.121 kg Weight 72.121 kg Physical Exam Narrative: EXAM NARRATIVE: Clinically looks euvolemic Patient was lying comfortably in her bed S1, S2 No signs of focal deficit No audible stridor or wheezing Abdomen soft no signs of peritonitis, soft abdomen bowel sounds present No joint swelling Appropriate mood and affect Data : 05/18/21 05:29 05/18/21 05:29 Micro: Microbiology 05/17/21 18:30 Blood Culture - Preliminary Blood SPECIMEN COLLECTED 05/17/21 18:25 Blood Culture - Preliminary Blood SPECIMEN COLLECTED A&P Assessment and plan (1) Diverticulitis: Status: Acute (2) Paresthesia of right leg: Status: Acute (3) Left leg paresthesias: Status: Acute (4) Restless leg: Status: Acute Additional A&P Information Diverticulitis Will need outpatient colonoscopy No active nausea or vomiting Improved pain management with increasing frequency of opioid with use IV and p.o. 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
[2021-05-18] MEDS: oxyCODONE 5 mg IR Tab/Cap PO ×2 (14:03→21:49)
[2021-05-18] MEDS: acetaminophen 325 mg Tablet 650 MG PO (21:50)
[2021-05-19] VITALS (7 sets, daily range): BP systolic 122–1225; BP diastolic 69–77; PULSE 59–66; RESP 16–18; TEMP 36.6–36.8; O2SAT 93–98
[2021-05-19] MEDS: oxyCODONE 5 mg IR Tab/Cap PO ×3 (02:05→10:41)
[2021-05-19 05:10] LABS: Basophils # 0.1 10^3/uL (0.0-0.1); Eosinophils # 0.2 10^3/uL (0.0-0.8); Eosinophils % 3.6 %; Hemoglobin 12.2 g/dL (11.5-15.3); Lymphocytes # 1.6 10^3/uL (0.8-4.8); Lymphocytes % 30.2 %; Mean Corpuscular Volume 91.1 fl (81-99); Mean Platelet Volume 10.2 fL (7.4-10.4); Monocytes # 0.4 10^3/uL (0.2-0.9); Monocytes % 8.2 %; Neutrophils # 2.98 10^3/uL (1.8-7.7); Neutrophils % 56.8 %; Nucleated Red Blood Cells % 0 %; Platelet Count 169 10^3/cmm (130-400); Red Blood Count 4.06 10^6/uL (4.1-5.3); Red Cell Distribution Width 11.8 % (12.1-15.1); White Blood Count 5.2 10^3/uL (4.0-10.0)
--- NOTE | 2021-05-19 05:22 | PC.NURSE ---
i reported low pulse 59 to nurse
[2021-05-19] MEDS: piperacillin-tazobactam 3.375 GM in sodium chloride 0.9% (plus) 50 ML IV (05:30)
[2021-05-19 05:43] LABS: Anion Gap 13.1 (5-19); Blood Urea Nitrogen 9 mg/dL (8-23); Calcium 9.2 mg/dL (8.5-10.5); Carbon Dioxide 23 mmol/L (22-29); Chloride 109 mmol/L (98-107); Glucose 90 mg/dL (65-115); Osmolality Calculated 290 mOsm/kg (285-295); Potassium 4.1 mmol/L (3.5-5.1); Sodium 141 mmol/L (136-145)
[2021-05-19] MEDS: acetaminophen 325 mg Tablet 650 MG PO (06:37)
--- NOTE | 2021-05-19 09:58 | PC.CHAP ---
Pastoral Care Encounter/Spiritual Assessment Type of Contact [] Declined grocery team member visit [] Patient/Family/Request visit [] Outpatient visit [] Follow-up visit [] Physician referral [] Code/Alert [X] Routine visit [] Staff referral [] Actively dying [] Patient sleeping [] Family support [] [] Out of room [] Palliative care [] [] Receiving care in room [] Pre-surgical visit [] Trauma [] Long length of stay [] ICU visit [] Other: Relational/Emotional Strength [X] Patient feels connected with others/family/visitors/staff [] Distress [] Loneliness/isolation [] Abandonment Spirituality of Patient [X] Person of Soraya [X] Attends Anabaptist of their Soraya X[X] Believes in Prayer [] Reads Bible or Zoroastrian materialX] There are Spiritual issues to be addressed Bursar Interventions [X] Prayer [] Active listening [X] Non-anxious presence [X] Spiritual/emotional support [] Crisis/trauma care [] Spiritual counseling [] Bereavement support [] Provided bereavement packet [] Provided Bible/devotional materials [] Provided toy/stuffed animal, coloring book to patient or family member [] Provided Communion [] Anointing/Kake [] Salvation [X] Completed spiritual assessment [] Other: Impact on Illness or Injury [] Angry [] Fearful [] Anxious [] Often cries [] Exhaustion [] Unable to work [] Unable to attend sabianism [] Unable to walk/stand [] Unable to read [] Unable to drive [] Unable to eat/drink [] Unable to sleep [] Unable to be with family [] Patient intubated [] Other: Summary Time spent with patient 10 MIN
[2021-05-19] MEDS: famotidine 20 mg/2 mL INJ IVP (10:04)
--- NOTE | 2021-05-19 10:53 | PM.DCS ---
Discharge Providers Date of Admission: 05/18/21 16:51 Date of Discharge: May 19, 2021 Attending Provider at Admission: Heather Lamar MD Attending Provider at Discharge: Alejandro Zafra MD Primary Care Provider: CODY Johnson Diagnoses at Discharge Discharge Diagnosis (1) Diverticulitis: Status: Acute (2) Paresthesia of right leg: Status: Acute (3) Left leg paresthesias: Status: Acute (4) Restless leg: Status: Acute Reason for Visit Reason for Visit: Sent by Dr Markham Hospital Course Hospital Course 66-year female who was admitted for management of diverticulitis mid descending left colon for management of pain. She never experienced any nausea or vomiting, during her hospitalization she never spiked fever, no bandemia or leukocytosis. She was kept on IV antibiotics. As per the patient she gets 2 episodes of diverticulitis every year her last colonoscopy was by Dr. Noe a year ago and it was unremarkable there is no history of cancer. She does endorse to intermittent constipation. On the day of discharge patient is clinically stable. She will be discharged with 5-day supply of oxycodone, she has 10-day supply of ciprofloxacin and Flagyl at home. She was requested to follow-up with her PCP to see if repeating colonoscopy would have any merit at this point, she will be given senna S and laxatives to avoid constipation. Her hemoglobin remained stable. She was tolerating her GI soft diet however no bowel movement during hospitalization. Physical Exam Narrative: EXAM NARRATIVE: Patient was comfortable in her bed Saturating well on room air S1, S2 Clinically looks euvolemic Abdomen is soft with local tenderness on deep palpation left lower quadrant no rebound tenderness rigidity or guarding EOMI, PERRLA Appropriate mood and affect No audible stridor or wheezing Discharge Data Data Completed and Pending: Completed Studies During Hospitalization Category Date Time Status CT abdomen pelvis w con* [id number] Stat Cat Scan 05/17/21 17:35 Completed XR chest 1V jl ble [id number] Stat Exams 05/17/21 17:29 Completed Pending at discharge Category Date Time Status Blood Culture Sta t Lab 05/17/21 18:30 Results Clostridioides Di fficile PCR Routin e Lab 05/17/21 21:32 Uncollected Enteric Bacterial Panel by PCR Rout ine Lab 05/17/21 21:32 Uncollected Labs from last 24 hours 05/19/21 05/19/21 04:37 04:37 WBC 5.2 RBC 4.06 L Hgb 12.2 Hct 37.0 MCV 91.1 MCH 30.0 MCHC 33.0 RDW 11.8 L Plt Count 169 MPV 10.2 Neut % (Auto) 56.8 Lymph % (Auto) 30.2 [place] % (Auto) 8.2 Eos % (Auto) 3.6 Baso % (Auto) 1.0 Neut # (Auto) 2.98 Lymph # (Auto) 1.6 [place] # (Auto) 0.4 Eos # (Auto) 0.2 Baso # (Auto) 0.1 Nucleated RBC % (a uto) 0 Nucleated RBCs # 0.0 Sodium 141 Potassium 4.1 Chloride 109 H Carbon Dioxide 23 Anion Gap 13.1 BUN 9 Creatinine 0.7 GFR Calculation 84.0 L Glucose 90 Calculated Osmolal ity 290 Calcium 9.2 Vitals: Last Vital Signs Temp 97.9 F 05/19/21 07:50 Pulse 60 05/19/21 07:50 Resp 18 05/19/21 10:41 BP 131/69 05/19/21 07:50 Pulse Ox 98 05/19/21 07:50 Discharge Plan Discharge Patient Disposition: Home Condition: Stable Prescriptions: New oxycodone 5 mg capsule 5 mg PO DAILY PRN (Reason: pain) Qty: 7 RF: 0 sennosides [Senna Laxative] 8.6 mg tablet 8.6 mg PO DAILY Qty: 10 RF: 0 Continued metronidazole [Flagyl] 500 mg tablet 500 mg PO TID 10 Days Qty: 30 RF: 0 ciprofloxacin HCl [Cipro] 500 mg tablet 500 mg PO BID 10 Days Qty: 20 RF: 0 Tylenol Ex Str Rapid Release 500 mg Tablet 1,000 mg PO Q4H PRN (Reason: Pain) RF: 0 ibuprofen 200 mg Tablet 800 mg PO Q6H PRN (Reason: Pain) RF: 0 lisinopril 20 mg tablet 20 mg PO QAM RF: 0 ropinirole 0.5 mg tablet 0.5 mg PO BEDTIME RF: 0 Discharge Orders: Discharge Order (Routine); Ordered 05/19/21 Ordered By: Alejandro Zafar Referrals: Yancy Thomas FNP [Primary Care Provider] - 4-7 days Discharge Diet: GI Soft Patient Instructions: Opioid Safety Discharge Attestations Time Spent in Discharge Care*: less than 30 min Quality Metrics Clinical Quality Measures During this hospital stay, did patient experience: None Coding Level of Care Code Acute [facility] note Diagnoses Diverticulitis K57.92 Paresthesia of right leg R20.2 Left leg paresthesias R20.2 Restless leg G25.81
--- NOTE | 2021-05-21 11:05 | PC.SOCIAL ---
discharge follow up call made, multiple calls today and yesterday, unable to reach patient. message left.
== END 2021-05-19 13:41 | disposition home or self-care (01) | DRG 392 ==
LOC: ER 19:41 → MEDSURG 20:02
PROVIDERS: Family Medicine; Admitting Provider Student in an Organized Health Care Education/Training Program; Emergency Provider Emergency Medicine; PCP Nurse Practitioner Family; Visit Provider Internal Medicine
DX: K57.32 Diverticulitis of large intestine without perforation or abscess without bleeding (principal); E04.1 Nontoxic single thyroid nodule; R20.2 Paresthesia of skin; G25.81 Restless legs syndrome; K59.00 Constipation, unspecified
CPT/HCPCS: 36415; 71045; 74177; 80048; 80053; 82550; 83605; 85025; 87040; 93005; 96365; 96367; 96375; 99285; G0378; J0696; J1170; J2270; J2405; J2543; J3010; J3490; J7030; Q9967; S0030

== ENCOUNTER → 2021-06-02 08:57 | Outpatient (BNVA) | payer MEDICARE, SELFPAY | PROVIDERS: PCP Nurse Practitioner Family | DX: R30.0 Dysuria (principal); R10.9 Unspecified abdominal pain; R11.0 Nausea; K57.92 Diverticulitis of intestine, part unspecified, without perforation or abscess without bleeding; M54.42 Lumbago with sciatica, left side | CPT/HCPCS: 81003 ==

== ENCOUNTER → 2021-07-05 14:18 | Outpatient (BNVA) | payer MEDICARE, SELFPAY | PROVIDERS: PCP Nurse Practitioner Family; Visit Provider Nurse Practitioner Family | DX: Z11.52 Encounter for screening for COVID-19 (principal); Z20.822 Contact with and (suspected) exposure to COVID-19 | CPT/HCPCS: 87635 ==

== ENCOUNTER → 2021-10-20 08:40 | Outpatient (BNVA) | payer MEDICARE, SELFPAY | PROVIDERS: PCP Nurse Practitioner Family; Visit Provider Orthopaedic Surgery | DX: M25.561 Pain in right knee (principal) | CPT/HCPCS: 73560; 73565 ==

== ENCOUNTER → 2021-10-21 11:02 | Outpatient (BNVA) | payer MEDICARE, SELFPAY | PROVIDERS: PCP Nurse Practitioner Family; Visit Provider Nurse Practitioner Family | DX: S83.241A Other tear of medial meniscus, current injury, right knee, initial encounter (principal); Z01.818 Encounter for other preprocedural examination | CPT/HCPCS: 87635 ==

== ENCOUNTER 2021-10-28 10:41 | Day surgery (SDC) | payer MEDICARE, SELFPAY ==
[2021-10-27 13:06] VITALS: BMI 27.4
[2021-10-28] VITALS (15 sets, daily range): BP systolic 108–143; BP diastolic 70–97; PULSE 72–94; RESP 10–20; TEMP 36.5–37; O2SAT 93–100
[2021-10-28] MEDS: sodium chloride 0.9% 1,000 ML 30 ML IV (11:56)
[2021-10-28] MEDS: fentaNYL 50 mcg/mL INJ 2mL IVP ×3 (11:57→13:57)
--- NOTE | 2021-10-28 12:46 | W.PM.OPSUD ---
Surgery/Procedure H&P Update DATE OF PROCEDURE: October 28, 2021 DATE H&P PERFORMED: 10/20/21 H&P UPDATE INFORMATION: I have reviewed H&P completed within last 30 days PREOP DIAGNOSIS: Right medial meniscal root tear PLANNED PROCEDURE: Operation Date: 10/28/21 12:05 Proposed Procedures p Right Knee Arthroscopy medial meniscal repair 40609/s83.241a(Right) - Edson Tay MD
--- NOTE | 2021-10-28 13:01 | ANES.PREANE2 ---
Pre-Anesthetic Assessment Height/Weight: Height 1.63 m Weight 72.575 kg Temp Pulse Resp BP Pulse Ox 97.7 F 89 16 143/97 96 10/28/21 11:00 10/28/21 11:00 10/28/21 11:57 10/28/21 11:00 10/28/21 11:57 Preop Diagnosis: Right medial meniscal root tear Operation Date: 10/28/21 12:05 Proposed Procedures p Right Knee Arthroscopy medial meniscal repair 38002/[id number](Right) - Edson Tay MD Familial anesthetic complications: None Was Beta Gabo taken within 24 hours: N/A Was Clonidine taken within 24 hours: N/A Last intake: Intake Last Liquid Date 10/27/21 Last Liquid Time 19:30 Last Solid Date 10/27/21 Last Solid Time 21:00 Social No alcohol and No tobacco Exam alert, oriented x 3, clear to auscultation bilaterally and regular rate & rhythm Airway Submandibular: within normal limits Cervical ROM: within normal limits Mallampati: Class II Dentition: chipped and partials History/ROS No significant complaints Pulmonary None reported CV/HEM Hypertension None reported Hepatic None reported GI Gastroesophageal Reflux Disease Diverticulitis Metabolic Thyroid Disease Musc/skel Osteoarthritis/DJD B/L leg pain and paresthesia Neuropsych Neuropathy (Carpal tunnel ) Anesthetic Plan ASA status: 2 Anesthesia: Anesthesia Evaluation and General Other: We discussed risk and benefits of general anesthesia including PONV, sore throat (sometimes severe), corneal abrasion, positioning and peripheral nerve injuries, life threatening allergic reaction, post operative ICU admission requiring prolonged intubation, stroke, heart attack, , and rare incidences of recall. Patient consents to proceed with general anesthesia. Risk of > 500 ml blood loss (7ml/kg in children): No Medications/Allergies Home Medications Medication Instructions Recorded Confirmed Last Taken Type acetaminophen 500 mg tablet 1,000 mg PO Q4H PRN 05/18/21 10/28/21 10/26/21 History lisinopril 20 mg tablet 20 mg PO QAM 05/18/21 10/28/21 10/26/21 History ropinirole 2 mg tablet 2 mg PO DAILY 90 Days #90 tab 08/12/21 10/28/21 10/07/21 Rx celecoxib 100 mg capsule (Celebrex) 100 mg PO BID #60 cap 0210/28/21 10/27/21 Rx zolpidem 10 mg tablet (Ambien) 10 mg PO .QHS 30 Days #30 tab 09/24/21 10/28/21 10/27/21 20:00 Rx Allergies Allergy/AdvReac Type Severity Reaction Status Date / Time sertraline [From Zoloft] Allergy ADR-Nausea Verified 10/21/21 10:15 tramadol Allergy ADR-Vomitin Verified 10/21/21 10:15 g Current Medications Generic Name Dose Route Start Last Admin Trade Name Freq PRN Reason Stop Dose Admin Fentanyl 50 mcg 10/28/21 10:46 10/28/21 11:57 Fentanyl 50 Mcg/Ml Inj 2ml IVP 50 mcg Q10M PRN Administration Preop Pain Sodium Chloride 1,000 mls @ 30 mls/hr 10/28/21 11:00 10/28/21 11:56 Sodium Chloride 0.9% IV 10/29/21 10:59 30 mls/hr .Q24H RIGO Administration PFSH Anesthesia Medical History Left leg paresthesias Osteoporosis Paresthesia of right leg Restless leg Thyroid nodule Surgical History History of back surgery Social History Smoking and tobacco status: never smoked Second hand smoke exposure: No Alcohol intake: never Caregiver/support person: Yes Lives independently: No Household members: family Marital status: service: No Current occupational status: employed Current occupation: [employer] History of recent travel: No Current gender identity: Female Special gerber needs: No Data Anesthesia Cardiac Studies: No Data to Display
[2021-10-28] MEDS: morphine 4 mg/mL SDV 1 mL 8 MG XX (13:31)
--- NOTE | 2021-10-28 13:43 | PM.OP ---
Operative Report Date of procedure: October 28, 2021 Pre-op diagnosis: Preop Diagnosis Right medial meniscal root tear Post-op diagnosis: same Post-op diagnosis: Right medial meniscal root tear, tear right lateral meniscus, grade IV chondromalacia medial femoral condyle Procedure done: Partial arthroscopic right lateral meniscectomy, chondroplasty medial femoral condyle Pathology: none sent Surgeon: Edson Tay Anesthesia: General Estimated blood loss (mL): 5 Findings: The patient had a complete avulsion of her medial meniscal root. She had exposed subchondral bone with unstable peripheral flaps and fissures throughout the weightbearing aspect of the medial femoral condyle. She had degeneration of the central 30% of the middle and posterior third of the lateral meniscus Condition: stable Disposition: PACU Brief History: Ms. Banerjee developed acute rheumatic right knee pain in the spring 2020. She was previously seen by Dr. Ami Whitehead and treated with corticosteroid injections with a recurrent pain. An MRI was obtained on February 02, 2021 which was originally interpreted with no meniscal tears. The patient received a corticosteroid injection and had good improvement. She sought evaluation by me earlier this month and I reviewed the MRI and felt concerns about a root tear. Surgery was scheduled for a possible meniscal root repair. Procedure: The patient was taken to the operating room and given a general anesthesia. She was prepped and draped in the supine position with a tourniquet on the right thigh. The tourniquet was never inflated. The knee was infiltrated with 30 cc of 0.35% Marcaine with epi and 10 mg of morphine. A timeout was performed. The knee was entered through a standard inferior medial and inferior lateral portal. The diagnostic portion of arthroscopy was performed. Extensive chondromalacia was identified over the medial femoral condyle. Utilizing an incisor shaver unstable flaps and fissures were debrided away from the periphery of the medial femoral condyle. Unstable margins were further addressed with the [employer] probe. Essentially the entirety of the medial femoral condyle revealed complete or near full-thickness cartilaginous loss. The medial meniscus was inspected the root tear was identified. There were no unstable flaps from the meniscal root. Due to the degree of chondromalacia she was not thought to be a candidate for root repair. The leg was placed in a [id number] position. The lateral compartment is inspected. Areas of central meniscal tearing in the middle third of the lateral and posterior meniscus were debrided back with incisor shaver. The rim was cleaned up with the [employer]rew[employer] probe leaving approximately 60% of the meniscus remaining. The knee was irrigated with saline. Portals were closed with 3-0 Prolene. Sterile dressings were applied. The patient was extubated taken recovery room in stable condition
[2021-10-28] MEDS: HYDROmorphone 1 mg/mL INJ 1 mL 0.5 MG IVP (14:11)
[2021-10-28] MEDS: HYDROcodone-acetaminophen 5-325 mg Tablet 1 TAB PO (14:35)
--- NOTE | 2021-10-28 15:24 | ANE.PACU2 ---
Inpatient post-anesthesia follow up: Airway intact: Yes Vital signs: Temperature 98.0 F Pulse Rate 78 Respiratory Rate 18 Blood Pressure 108/76 Pulse Oximetry 100 Oxygen Delivery Me thod Room Air Oxygen Flow Rate Fraction of Inspir ed Oxygen Hydration adequate: Yes Nausea and vomiting: No Pain level: 4 Mental status: Baseline
== END 2021-10-28 15:23 | disposition home or self-care (01) ==
PROVIDERS: PCP Nurse Practitioner Family; Visit Provider Orthopaedic Surgery
PROC: (CPT 29870; principal; 2021-10-28 12:05)
DX: S83.281A Other tear of lateral meniscus, current injury, right knee, initial encounter (principal); W19.XXXA Unspecified fall, initial encounter; I10 Essential (primary) hypertension; K21.9 Gastro-esophageal reflux disease without esophagitis; M19.90 Unspecified osteoarthritis, unspecified site; M81.0 Age-related osteoporosis without current pathological fracture
CPT/HCPCS: 29881; J0690; J1100; J1170; J2250; J2270; J2405; J2704; J3010; J3490; J7030

== ENCOUNTER 2021-11-13 07:58 | Emergency (ER) | payer MEDICARE, SELFPAY ==
[2021-11-13 08:01] VITALS: BP 169/100; PULSE 87; RESP 18; TEMP 37.1; O2SAT 97; BMI 27.1
--- NOTE | 2021-11-13 08:05 | W.ED.ABDPA2 ---
HPI - Abdominal Pain General: Chief Complaint: Abdominal Pain Stated Complaint: LLQ ABD PAIN Time Seen by Provider: 11/13/21 08:00 Source: patient Mode of arrival: EMS Limitations: no limitations History of Present Illness: Patient is a nice 66-year-old female who presents to ED today with a complaint of left lower abdominal pains. Patient tells me yesterday she began developing some crampy-like sensations to the left side of her abdomen. She states this morning pain has increased and is now very uncomfortable. She feels nauseous but has not had any episodes of emesis. Her bowel movements have been normal. No fevers. She has no urinary complaints. Patient states she does have a history of diverticulitis that has presented similarly in the past. She states her last flare was May 2021 and was hospitalized due to outpatient therapy failure. MD elicited complaint: abdominal pain Pertinent past history: other (diverticulitis) Onset (ago): hour(s) Pain Consistency: constant Location: LLQ Severity: severe Quality: cramping Radiation: none Migration to: no migration Relieving factors: nothing Associated Symptoms: Reports GI cramping and nausea; Denies change in bowel habits, change in stool character, chills, dysuria, fever(s), hematochezia, hematuria, hematemesis, melena and vomiting Related Data: Patient : No Review of Systems Const: Denies: fever(s), chills, body aches, fatigue or malaise Card: Denies: chest pain Resp: Denies: dyspnea or chest congestion GI: Reports: abdominal pain, nausea and GI cramping; Denies: vomiting, hematemesis, change in bowel habits, change in stool character, hematochezia or melena : Denies: flank pain, difficulty voiding, dysuria or hematuria Musc: Reports: joint pain (knee surgery by Maggi last month); Denies: neck pain, back pain or extremity pain Skin/Breast: Denies: rash Neuro: Denies: headache(s) or dizziness PFSH ED PFSH: Medical History Left leg paresthesias Osteoporosis Paresthesia of right leg Restless leg Thyroid nodule Surgical History History of back surgery Social History Smoking and tobacco status: never smoked Second hand smoke exposure: No Alcohol intake: never Caregiver/support person: Yes Lives independently: No Household members: family Marital status: service: No Current occupational status: employed Current occupation: [employer] History of recent travel: No Current gender identity: Female Special gerber needs: No Physical Exam Const: COMMON NORMALS: patient oriented x3, no limitations and alert GENERAL APPEARANCE: cooperative and in distress (mildly uncomfortable secondary to pain) ORIENTATION/CONSCIOUSNESS: Yes awake, Yes oriented to person, Yes oriented to place and Yes oriented to time HENMT: COMMON NORMALS: normocephalic and atraumatic HEAD & SCALP: normocephalic and atraumatic Resp: COMMON NORMALS: normal respiratory effort and clear to auscultation bilaterally AUSCULTATION: clear to auscultation bilaterally Cardio: COMMON NORMALS: regular rate and regular rhythm RATE: regular rate RHYTHM: regular rhythm GI: COMMON NORMALS: Normal to inspection, nondistended, normoactive bowel sounds present, Soft to palpation and no masses INSPECTION: Yes scar (previous open sophie) AUSCULTATION: Yes normoactive bowel sounds PALPATION: Yes Soft to palpation, Yes Tenderness to palpation present (GI) (RUQ, LLQ), Yes Guarding due to palpation present (GI) and No Rigid due to palpation : COMMON NORMALS: Yes no CVA tenderness BLADDER/KIDNEY EXAM: Yes no CVA tenderness Back/Pelvis: COMMON NORMALS: no CVA tenderness Extremity: COMMON NORMALS: normal to inspection, capillary refill normal, no clubbing, cyanosis or edema, no calf tenderness and no pedal edema GENERAL: Yes normal exam except as noted Neuro: DIEGO COMA SCALE: document GCS findings [place] coma scale eye opening: Spontaneous [place] coma scale verbal response: Orientated [place] coma scale motor response: Obey commands Diego coma scale total score: 15 COMMON NORMALS: patient oriented x3, moves all extremities, no focal motor deficits and no sensory deficits noted SENSORIUM/ORIENTATION: Yes alert, Yes oriented to person, Yes oriented to place and Yes oriented to time Skin: COMMON NORMALS: no rashes or lesions noted GENERAL SKIN EXAM: no rashes or lesions noted Course Vital Signs: Vital signs: Vital Signs Temperature 98.7 F 11/13/21 08:28 Pulse Rate 88 11/13/21 10:20 Respiratory Rate 20 H 11/13/21 10:20 Blood Pressure 143/83 11/13/21 10:20 Pulse Oximetry 96 11/13/21 10:20 MDM - Abdominal Pain Medical Decision Making Patient has sigmoid diverticulitis without abscess or perforation on CT scan. Her vital signs are normal. She has a normal white count. Remainder of lab work is unremarkable. This would make her uncomplicated diverticulitis. Practice changing up-to-date guidelines now recommend patients with uncomplicated diverticulitis can be treated without antibiotic therapy however given the fact that patient has required hospitalization previously we will go ahead and err on the side of caution and place her on antibiotics. She states she has failed outpatient management with Cipro/Flagyl previously so I think it is appropriate to give her a dose of IV Zosyn here and place her on Augmentin at home with close follow-up as an outpatient through PCP and strict return to ED precautions. Patient verbalized understanding of these instructions. Lab Data : 11/13/21 08:10 11/13/21 08:10 Labs/Radiology: Radiology Impressions Abdomen/Pelvis CT 11/13/21 08:08 IMPRESSION: Acute non perforated sigmoid diverticulitis. Laboratory Results WBC 8.2 10^3/uL (4.0-10.0) 11/13/21 08:10 RBC 4.77 10^6/uL (4.1-5.3) 11/13/21 08:10 Hgb 14.1 g/dL (11.5-15.3) 11/13/21 08:10 Hct 42.1 % (37.0-47.0) 11/13/21 08:10 MCV 88.3 fl (81-99) 11/13/21 08:10 MCH 29.6 pg (28.0-34.0) 11/13/21 08:10 MCHC 33.5 g/dL (30.0-36.0) 11/13/21 08:10 RDW 12.0 % (12.1-15.1) L 11/13/21 08:10 Plt Count 161 10^3/cmm (130-400) 11/13/21 08:10 MPV 10.1 fL (7.4-10.4) 11/13/21 08:10 Neut % (Auto) 70.5 % 11/13/21 08:10 Lymph % (Auto) 21.4 % 11/13/21 08:10 [place] % (Auto) 5.8 % 11/13/21 08:10 Eos % (Auto) 1.2 % 11/13/21 08:10 Baso % (Auto) 0.7 % 11/13/21 08:10 Neut # (Auto) 5.81 10^3/uL (1.8-7.7) 11/13/21 08:10 Lymph # (Auto) 1.8 10^3/uL (0.8-4.8) 11/13/21 08:10 [place] # (Auto) 0.5 10^3/uL (0.2-0.9) 11/13/21 08:10 Eos # (Auto) 0.1 10^3/uL (0.0-0.8) 11/13/21 08:10 Baso # (Auto) 0.1 10^3/uL (0.0-0.1) 11/13/21 08:10 Nucleated RBC % (auto) 0 % 11/13/21 08:10 Nucleated RBCs # 0.0 /100WBC 11/13/21 08:10 Sodium 137 mmol/L (136-145) 11/13/21 08:10 Potassium 4.0 mmol/L (3.5-5.1) 11/13/21 08:10 Chloride 101 mmol/L (98-107) 11/13/21 08:10 Carbon Dioxide 25 mmol/L (22-29) 11/13/21 08:10 Anion Gap 15.0 (5-19) 11/13/21 08:10 BUN 10 mg/dL (8-23) 11/13/21 08:10 Creatinine 0.7 mg/dL (0.5-0.9) 11/13/21 08:10 GFR Calculation 84.0 mL/min (90-130) L 11/13/21 08:10 Glucose 104 mg/dL (65-115) 11/13/21 08:10 Calculated Osmolality 283 mOsm/kg (285-295) L 11/13/21 08:10 Lactic Acid 1.6 mmol/L (0.5-2.2) 11/13/21 08:10 Calcium 10.0 mg/dL (8.5-10.5) 11/13/21 08:10 Total Bilirubin 0.4 mg/dL (0.15-1.2) 11/13/21 08:10 AST 30 U/L (0-32) 11/13/21 08:10 ALT 33 U/L (0-33) 11/13/21 08:10 Alkaline Phosphatase 69 IU/L (35-105) 11/13/21 08:10 Total Protein 8.1 g/dL (6.6-8.7) 11/13/21 08:10 Albumin 4.9 g/dL (3.5-5.2) 11/13/21 08:10 Globulin 3.2 g/dL (1.3-4.6) 11/13/21 08:10 Lipase 37 U/L (13-60) 11/13/21 08:10 Urine Color Straw (Yellow) 11/13/21 08:21 Urine Appearance Clear (CLEAR) 11/13/21 08:21 Urine pH 5 (5-7) 11/13/21 08:21 Ur Specific [place] 1.010 (1.005-1.030) 11/13/21 08:21 Urine Protein Neg (Negative) 11/13/21 08:21 Urine Glucose (UA) Norm (Normal) 11/13/21 08:21 Urine Ketones Negative (Negative) 11/13/21 08:21 Urine Blood Neg (Negative) 11/13/21 08:21 Urine Nitrate Negative (Negative) 11/13/21 08:21 Urine Bilirubin Neg (Negative) 11/13/21 08:21 Urine Urobilinogen Norm mg/dL (Negative) 11/13/21 08:21 Ur Leukocyte Esterase Trace (Negative) H 11/13/21 08:21 Urine RBC None /hpf (0-2) 11/13/21 08:21 Urine WBC 0-4 /hpf (0-5) H 11/13/21 08:21 Ur Squamous Epith Cells 0-4 /hpf (0-5) H 11/13/21 08:21 Ur Transition Epith Cell 0-4 /hpf 11/13/21 08:21 Amorphous Sediment Not Reportable 11/13/21 08:21 Urine Bacteria Trace /hpf (NONE) 11/13/21 08:21 Discharge Plan Discharge Patient Disposition: Home Clinical Impression: Diverticulitis of sigmoid colon Condition: Stable Prescriptions: New amoxicillin-pot clavulanate 875-125 mg tablet 1 tab PO BID Qty: 28 0RF Changed hydrocodone-acetaminophen 5-325 mg tablet 1 tab PO Q6H PRN (Reason: pain) Qty: 15 0RF No Action celecoxib [Celebrex] 100 mg capsule 100 mg PO BID Qty: 60 3RF zolpidem [Ambien] 10 mg tablet 10 mg PO .QHS 30 Days Qty: 30 1RF hydrocodone-acetaminophen 5-325 mg tablet 1 tab PO Q4H 7 Days Qty: 30 0RF ropinirole 2 mg tablet 2 mg PO DAILY 90 Days Qty: 90 1RF acetaminophen 500 mg Tablet 1,000 mg PO Q4H PRN (Reason: Pain) 0RF lisinopril 20 mg tablet 20 mg PO QAM 0RF Discharge Orders: Discharge ED (Routine); Ordered 11/13/21 Ordered By: Dori Schroeder Referrals: Yancy Thomas FNP [Primary Care Provider] - Patient Instructions: Diverticulitis (ED), Diverticulitis (DC) Coding Level of Care Code ED Photoengraving Sketch Maker for Chg Fwd Exam Comprehensive
--- NOTE | 2021-11-13 08:08 | CTR_ITS ---
PROCEDURE INFORMATION: Exam: CT Abdomen And Pelvis With Contrast Exam date and time: 11/13/2021 9:04 AM Age: 66 years old Clinical indication: Abdominal pain; Localized; Lower; Additional info: Abdominal pain; HX of diverticulitis TECHNIQUE: Imaging protocol: Computed tomography of the abdomen and pelvis with contrast. Radiation optimization: All CT scans at this facility use at least one of these dose optimization techniques: automated exposure control; mA and/or kV adjustment per patient size (includes targeted exams where dose is matched to clinical indication); or iterative reconstruction. Contrast material: OMNI 300; Contrast volume: 95 ml; Contrast route: INTRAVENOUS (IV); COMPARISON: CT abdomen pelvis w con* [id number] 05/17/2021 5:57 PM RADIATION DOSE METRICS: Total DLP (mGy-cm): 1324.36 FINDINGS: Liver: Enlarged liver at 183 mm and moderately fatty infiltrated. Gallbladder and bile ducts: Normal. No calcified stones. No ductal dilation. Pancreas: Normal. No ductal dilation. Spleen: Normal. No splenomegaly. Adrenal glands: Normal. No mass. Kidneys and ureters: Stable right renal cyst. No hydronephrosis. Stomach and bowel: Stable proximal duodenal diverticula. Acute diverticulitis involving mid sigmoid colon. Appendix: No evidence of appendicitis. Intraperitoneal space: Unremarkable. No free air. No significant fluid collection. Vasculature: Unremarkable. No abdominal aortic aneurysm. Lymph nodes: Unremarkable. No enlarged lymph nodes. Urinary bladder: Unremarkable as visualized. Reproductive: Unremarkable as visualized. Bones/joints: Stable spine with multilevel arthritic changes and superior endplate compression deformity again of T11. Soft tissues: Slightly enlarged paraesophageal hernia. Stable fat containing umbilical hernia. CT/CT abdomen pelvis w con* [id number] IMPRESSION: Acute non perforated sigmoid diverticulitis.
[2021-11-13] MEDS: sodium chloride 0.9% 1,000 ML 999 ML IV (08:24)
[2021-11-13 08:25] VITALS: RESP 20
[2021-11-13] MEDS: morphine 4 mg/mL SDV 1 mL IVP (08:25)
[2021-11-13] MEDS: ondansetron 2 mg/ML SDV 2 mL 4 MG IVP (08:25)
[2021-11-13 08:28] VITALS: BP 169/100; PULSE 87; RESP 20; TEMP 37.1; O2SAT 97
[2021-11-13 08:29] LABS: Basophils # 0.1 10^3/uL (0.0-0.1); Basophils % 0.7 %; Eosinophils # 0.1 10^3/uL (0.0-0.8); Eosinophils % 1.2 %; Hematocrit 42.1 % (37.0-47.0); Hemoglobin 14.1 g/dL (11.5-15.3); Lymphocytes # 1.8 10^3/uL (0.8-4.8); Lymphocytes % 21.4 %; Mean Corpuscular HGB Conc 33.5 g/dL (30.0-36.0); Mean Corpuscular Hemoglobin 29.6 pg (28.0-34.0); Mean Corpuscular Volume 88.3 fl (81-99); Mean Platelet Volume 10.1 fL (7.4-10.4); Monocytes # 0.5 10^3/uL (0.2-0.9); Monocytes % 5.8 %; Neutrophils # 5.81 10^3/uL (1.8-7.7); Neutrophils % 70.5 %; Nucleated Red Blood Cells % 0 %; Platelet Count 161 10^3/cmm (130-400); Red Blood Count 4.77 10^6/uL (4.1-5.3); White Blood Count 8.2 10^3/uL (4.0-10.0)
[2021-11-13 08:47] LABS: Add Urine Culture? No; Add Urine Microscopic? YES; Bacteria Urine TRACE /hpf; Bilirubin Urine Neg (Negative); Blood Urine Neg (Negative); Glucose Urine UA Norm (Normal); Ketones Urine Negative (Negative); Leukocyte Esterase Urine Trace (Negative); Nitrate Urine Negative (Negative); Protein Urine Neg (Negative); Squamous Epithelial Cell Urine 0-4 /hpf (0-5); Transitional Epi Cells Urine 0-4 /hpf; Urine Appearance Clear (CLEAR); Urine Color Straw (Yellow); Urobilinogen Urine Norm (Negative); WBC Urine 0-4 /hpf (0-5); pH Urine 5 (5-7)
[2021-11-13 08:54] LABS: Alanine Aminotransferase 33 U/L (0-33); Albumin Level 4.9 g/dL (3.5-5.2); Alkaline Phosphatase 69 IU/L (35-105); Aspartate Amino Transferase 30 U/L (0-32); Blood Urea Nitrogen 10 mg/dL (8-23); Carbon Dioxide 25 mmol/L (22-29); Chloride 101 mmol/L (98-107); Globulin 3.2 g/dL (1.3-4.6); Glucose 104 mg/dL (65-115); Lactic Sepsis W/Reflex 1.6 mmol/L (0.5-2.2); Lipase 37 U/L (13-60); Osmolality Calculated 283 mOsm/kg (285-295); Sodium 137 mmol/L (136-145); Total Bilirubin 0.4 mg/dL (0.15-1.2); Total Protein 8.1 g/dL (6.6-8.7)
[2021-11-13] MEDS: iohexol 300 mg/mL 100 mL Btl IV (09:05)
[2021-11-13] MEDS: HYDROmorphone 1 mg/mL INJ 1 mL 0.5 MG IVP (10:18)
[2021-11-13 10:20] VITALS: BP 143/83; PULSE 88; RESP 20; O2SAT 96
[2021-11-13] MEDS: piperacillin-tazobactam 3.375 GM in sodium chloride 0.9% (plus) 50 ML IV (10:54)
[2021-11-13 11:27] VITALS: BP 149/91; PULSE 81; PULSE 82; RESP 16; RESP 18; O2SAT 97; O2SAT 98
== END 2021-11-13 11:28 | disposition home or self-care (01) ==
PROVIDERS: Emergency Provider Physician Assistant; PCP Nurse Practitioner Family
DX: K57.32 Diverticulitis of large intestine without perforation or abscess without bleeding (principal)
CPT/HCPCS: 74177; 80053; 81001; 83605; 83690; 85025; 96365; 96375; 99284; J1170; J2270; J2405; J2543; J7030; Q9967

== ENCOUNTER → 2021-11-17 09:47 | Outpatient (BNVA) | payer MEDICARE, SELFPAY | PROVIDERS: PCP Nurse Practitioner Family; Visit Provider Nurse Practitioner Family | DX: M25.562 Pain in left knee (principal); M17.12 Unilateral primary osteoarthritis, left knee | CPT/HCPCS: 73562 ==

== ENCOUNTER → 2021-11-26 10:29 | Outpatient (BNVA) | payer MEDICARE, SELFPAY | PROVIDERS: PCP Nurse Practitioner Family; Visit Provider Orthopaedic Surgery | DX: M17.11 Unilateral primary osteoarthritis, right knee (principal); M94.262 Chondromalacia, left knee | CPT/HCPCS: 20610; 99213; J0702; J3490 ==

== ENCOUNTER 2021-12-06 15:32 | Observation (INO) | payer MEDICARE, SELFPAY ==
[2021-12-01 14:36] VITALS: BMI 27.4
--- NOTE | 2021-12-01 14:36 | ECG_ITS ---
[facility] Test Date: 2021-12-01 Pat Name: Jelly Banerjee Department: Room: Gender: Female Publications Inspector: : [id number] Requested By: Alistair Jacob Order Number: [id number] Jocelyne MD: Cornell Kendrick M.D. Measurements Intervals [place] Rate: 92 P: 44 HI: 153 QRS: -11 QRSD: 97 T: -6 QT: 326 QTc: 403 Interpretive Statements SINUS RHYTHM MINIMAL VOLTAGE CRITERIA FOR LVH, CONSIDER NORMAL VARIANT [MEETS CRITERIA IN ONE OF: R(aVL), S(V1), R(V5), R(V5/V6)+S(V1)] Compared to ECG 05/17/2021 23:51:07 Sinus bradycardia no longer present Myocardial infarct finding no longer present Electronically Signed On 12-01-2021 22:25:08 CDT by Cornell Kendrick M.D. [id number]
--- NOTE | 2021-12-01 16:17 | P.ANESASSM_ITS ---
Pre-Anesthetic Assessment Height/Weight: Height 1.63 m Weight 72.575 kg Preop Diagnosis: Right medial meniscal root tear Operation Date: 12/06/21 12:10 Proposed Procedures p Right Total Knee Arthroplasty 86707/m17.11(Right) - Edson Tay MD Familial anesthetic complications: Patient has a hx of PONV Was Beta Gabo taken within 24 hours: N/A Was Clonidine taken within 24 hours: N/A Social No alcohol and No tobacco Exam alert, oriented x 3, clear to auscultation bilaterally and regular rate & rhythm Airway Submandibular: within normal limits Cervical ROM: within normal limits Dentition: partials Pulmonary None reported CV/HEM Hypertension Dysuria GI Gastroesophageal Reflux Disease (Symptomatic on empty stomach ) Diverticulitis Metabolic Thyroid Disease Musc/skel Osteoarthritis/DJD Sciatica Neuropsych RLS Anesthetic Plan ASA status: 2 Anesthesia: Anesthesia Evaluation, General and Regional (specify below) (Adductor canal block ) Other: We discussed risk and benefits of general vs spinal anesthesia including DVT risk, infection, paralysis/catastrophic nerve injury, back bruising/pain, PDPH, conversion to general in case of spinal, PONV, sore throat (sometimes severe), corneal abrasion, positioning and peripheral nerve injuries, life threatening allergic reaction, post operative ICU admission requiring prolonged intubation, stroke, heart attack, , post operative delirium and/or post operative cognitive decline, and rare incidences of recall (under general anesthesia). We discussed risk and benefits of nerve block for post op pain control including management of pain and titration of pain medications as signs/symptoms of nerve block wearing off begin to appear and/or prior bed. We discussed risk of failed nerve block, vascular injury or other vital structure injury, abscess/infection, LAST, and nerve injury. Patient prefers general anesthesia and would like an adductor canal block for post op pain control. Risk of > 500 ml blood loss (7ml/kg in children): No Medications/Allergies Home Medications Medication Instructions Recorded Confirmed Last Taken Type acetaminophen 500 mg tablet 1,000 mg PO Q4H PRN 05/18/21 12/01/21 10/26/21 History lisinopril 20 mg tablet 20 mg PO QAM 05/18/21 12/01/21 10/26/21 History celecoxib 100 mg capsule (Celebrex) 100 mg PO BID #60 cap 09/24/21 12/01/21 10/27/21 Rx ropinirole 1 mg tablet 1 mg PO BID 90 Days #180 tab 11/23/21 12/01/21 Unknown Rx zolpidem 10 mg tablet (Ambien) 10 mg PO .QHS 30 Days #30 tab 11/23/21 12/01/21 Unknown Rx hydrocodone 5 mg-acetaminophen 325 1 tab PO Q4H PRN 7 Days #30 tab 11/26/21 12/01/21 Unknown Rx mg tablet Allergies Allergy/AdvReac Type Severity Reaction Status Date / Time sertraline [From Zoloft] Allergy ADR-Nausea Verified 11/26/21 10:55 tramadol Allergy ADR-Vomitin Verified 11/26/21 10:55 g PFSH Anesthesia Medical History Left leg paresthesias Osteoporosis Paresthesia of right leg Restless leg Thyroid nodule Surgical History History of back surgery Social History Smoking and tobacco status: never smoked Second hand smoke exposure: No Alcohol intake: never Caregiver/support person: Yes Lives independently: No Household members: family Marital status: service: No Current occupational status: employed Current occupation: [employer] History of recent travel: No Current gender identity: Female Special gerber needs: No Data Anesthesia Cardiac Studies: No Data to Display
[2021-12-06] VITALS (39 sets, daily range): BP systolic 97–172; BP diastolic 65–109; PULSE 86–120; RESP 16–20; TEMP 36.4–36.9; O2SAT 88–100
[2021-12-06] MEDS: oxyCODONE 20 mg ER (12 HR) Tablet PO (08:34)
[2021-12-06] MEDS: CELEcoxib 200 mg Capsule 400 MG PO (08:34)
[2021-12-06] MEDS: gabapentin 300 mg Capsule PO ×2 (08:34→18:21)
[2021-12-06] MEDS: acetaminophen 500 mg Tablet 1000 MG PO ×2 (08:35→18:21)
[2021-12-06] MEDS: sodium chloride 0.9% 1,000 ML 30 ML IV (08:40)
[2021-12-06] MEDS: midazolam 1 mg/mL INJ 2 mL 2 MG IVP (09:08)
--- NOTE | 2021-12-06 09:20 | P.ANESUD_ITS ---
Pre-Anesthetic Update Pre-Anesthetic Assessment: Date of Surgery/Procedure: 12/06/21 Preop Pauline gnosis: Osteoarthritis right knee Proposed Procedure: Operation Date: 12/06/21 09:35 Proposed Procedures p Right Total Knee Arthroplasty 91232/m17.11(Right) - Edson Tay MD Any changes to Pre-Anesthetic Assessment?: No Last Intake: Intake Last Liquid Date 12/05/21 Last Liquid Time 22:00 Last Solid Date 12/05/21 Last Solid Time 19:00 Vitals: Temperature 98.5 F 12/06/21 08:16 Temperature Source Temporal Artery S can 12/06/21 08:16 Pulse Rate 89 12/06/21 08:16 Respiratory Rate 16 12/06/21 08:16 Blood Pressure 172/109 12/06/21 08:16 Blood Pressure Linda n 130 12/06/21 08:16 Pulse Oximetry 98 12/06/21 08:16 Oxygen Delivery Me thod 12/06/21 08:16 Exam: Pre-Anes Outpt Exam: alert, oriented x 3, clear to auscultation bilaterally and regular rate & rhythm Cardiac Studies: No Data to Display
--- NOTE | 2021-12-06 09:20 | ANES.PROC ---
Anesthesia Procedures Procedure/Date: 12/06/21 Nerve Block ^: Nerve Block 1: Main Anesthesia: general anesthesia Time Out Performed: Yes Consent: requested by attending/covering physician, from patient, risks and benefits reviewed and patient agrees to proceed Nerve block location: adductor canal (R) Anesthesia monitors applied: pulse oximetry, EKG, BP cuff and oxygen Nerve block position: supine Anesthetic Used: ropivicaine 0.5% (30) and with decadron (4 mg) Ultrasound used to: recognize landmarks and visualize and ID femerol nerve Nerve Stimulator Used?: No Interscalene/Femoral BLK: 4 stimuplex 21 g needle used for position and inplane approach, visualize local anesthetic spread and no vascular puncture identified Injection: neg aspiration of heme Patient Tolerated Procedure: well Complications: none
--- NOTE | 2021-12-06 09:26 | P.HP_ITS ---
Same Day Surgery H&P Indication for Procedure/HPI DATE OF PROCEDURE: December 06, 2021 CHIEF COMPLAINT/INDICATIONFOR SURGICAL PROCEDURE: Osteoarthritis right knee here for right total knee arthroplasty PREOP DIAGNOSIS: Osteoarthritis right knee PLANNED PROCEDURE: Operation Date: 12/06/21 09:35 Proposed Procedures p Right Total Knee Arthroplasty 42379/m17.11(Right) - Edson Tay MD Ms. Banerjee is followed for in December 2020 when she slipped off a raised garden bed landing approximately 2 feet. She was treated by Dr. Ami Whitehead and received injections with persistent pain. I saw her in October of this year with MRI I reviewed suggesting a meniscal root tear. She was taken to the operating room on 317 where in addition to the meniscal root tear she has substantial degeneration her medial compartment and was not a candidate for for meniscal repair. Unfortunately she has continued to have severe right knee pain and is h ere today for right total knee arthroplasty Medications/Allergies* Home Medications Medication Instructions Recorded Confirmed Type acetaminophen 500 mg tablet 1,000 mg PO Q4H PRN 05/18/21 12/06/21 History lisinopril 20 mg tablet 20 mg PO QAM 05/18/21 12/06/21 History Allergies/Adverse Reactions Allergy/AdvReac Type Severity Reaction Status Date / Time sertraline [From Zoloft] Allergy ADR-Nausea Verified 11/26/21 10:55 tramadol Allergy ADR-Vomitin Verified 11/26/21 10:55 g Current Medications: Generic Name Dose Route Start Last Admin Trade Name Freq PRN Reason Stop Dose Admin Sodium Chloride 1,000 mls @ 30 mls/hr 12/06/21 08:15 12/06/21 08:40 Sodium Chloride 0.9% IV 12/07/21 08:14 30 mls/hr .Q24H RIGO Administration Midazolam HCl 2 mg 12/06/21 08:07 12/06/21 09:08 Midazolam 1 Mg/Ml Inj 2 Ml IVP 2 mg Q5M PRN Administration Preop Anxiety Pertinent History/Comorbid Conditions* Medical History (Updated 11/26/21 @ 12:24 by Edson Tay MD) Left leg paresthesias Osteoporosis Paresthesia of right leg Restless leg Thyroid nodule Surgical History (Updated 05/18/21 @ 13:40 by Alejandro Zafar MD) History of back surgery Social History Smoking and tobacco status: never smoked Second hand smoke exposure: No Alcohol intake: never Caregiver/support person: Yes Lives independently: No Household members: family Marital status: service: No Current occupational status: employed Current occupation: [email or web address] History of recent travel: No Current gender identity: Female Special gerber needs: No Pertinent Exam Findings alert, oriented x 3, clear to auscultation bilaterally, regular rate & rhythm and operative site marked Recommendations Surgery/Procedure today Coding Level of Care Code Acute Computer Applications Instructor for Juliet Adams
[2021-12-06] MEDS: tranexamic acid 1,000 mg/10mL SDV 1000 MG IV (10:25)
[2021-12-06] MEDS: EPINEPHrine 1 mg/mL INJ XX (10:39)
[2021-12-06] MEDS: ketorolac 30 mg/mL INJ XX (10:39)
[2021-12-06] MEDS: tranexamic acid 1,000 mg/10mL SDV 1000 MG XX (10:40)
--- NOTE | 2021-12-06 11:49 | XR_ITS ---
WS: [id number] Right knee, AP and lateral views, 12/06/2021 Clinical Data: Right Total Knee arthroplasty Comparison: Both knees, right knee, 10/20/2021. Findings: A knee arthroplasty is in good position. There is air in the joint space from recent surgery. XR/XR knee RT 1-2V [id number] Impression: Right knee arthroplasty.
--- NOTE | 2021-12-06 11:50 | PM.OP ---
Operative Report Date of procedure: December 06, 2021 Pre-op diagnosis: Preop Diagnosis Osteoarthritis right knee Post-op diagnosis: same Post-op diagnosis: Same Post-op findings: Same Procedure done: Right total knee arthroplasty Implants: Monique total knee arthroplasty components were used includin) Size 2 triathalon cruciate retaining femoral component 2) Size 2 Tritanium tibial component 3) Size 2/11 mm thickness CR tibial bearing insert Pathology: none sent Surgeon: Edson Tay Anesthesia: Nerve Block (Spinal, adductor canal block) Estimated blood loss (mL): 200 Complications: None Findings: Patient had eburnated bone over the medial femoral condyle. Lateral compartment was not healthy. There was central softening of the patella but no significant cartilage loss Condition: stable Disposition: PACU Procedure: The patient was taken to the operating room. Patient was given 1 g of tranexamic acid . The above anesthesia provided by the anesthesia service. A timeout was performed. The patient was prepped and draped in the usual fashion with the lower extremity exposed. A anterior incision was made, midline, from a point proximal to the patella to the distal tibial tubercle. The knee was entered through a medial parapatellar approach. The patella could be displaced laterally and the knee flexed. The patellar fat pad was resected to provide better visibility. Retractors were placed medially and laterally adjacent to the tibial plateau. The femoral canal was drilled in line with the longitudinal axis of the femur. Intramedullary femoral guide for used to make a distal femoral cut in 5 degrees of valgus, resecting 8 mm from the more prominent condyle. Next the extra medullary tibial guide was placed in alignment with the longitudinal axis of the tibia. The cutting guides were set to remove just over 9 mm from the high tibial plateau. The proximal tibia was then cut. The femoral measuring guide was then placed over the distal femur. Rotation was verified checking the relationship of the guide to the condyle and the trochlear groove. The femur was measured and cut for the desired femoral component. The desired tibial baseplate was then chosen. A trial reduction with the femur tibial baseplate and polyethylene was done, assuring that the knee was stable throughout full motion. Ligament balancing nothing more than a release of the deep medial collateral ligament..The tibia was prepared for the tibial baseplate. Patellar was inspected and found to have minimal chondromalacia. A track well along the femur through range of motion and the decision was made to not resurface the patella. The femur and tibia were then press-fit into place. The posterior capsule and collateral ligaments were then injected with a solution of 100 mL of 0.2% ropivacaine, 1 mL of a 1:1000 epinephrine solution, 30 mg of Toradol, and 1 g of tranexamic acid. Final polyethylene component was then snapped into place into the tibia. The extensor retinaculum was closed with a running 1 Stratafix interrupted 1 Ethibond. The subcutaneous tissues were closed with 2-0 Vicryl and the skin was closed with a running 4-0 Stratafix. The wound was covered with a Dermabond Prineo dressing. It was covered with 4xrs and a compressive Tubigauze was applied. The patient was taken to recovery room in stable condition.
[2021-12-06] MEDS: fentaNYL 50 mcg/mL INJ 2mL IVP ×2 (11:59→12:12)
[2021-12-06] MEDS: HYDROmorphone 1 mg/mL INJ 1 mL 0.5 MG IVP (12:24)
[2021-12-06] MEDS: oxyCODONE 5 mg IR Tab/Cap 10 MG PO ×3 (13:54→21:38)
--- NOTE | 2021-12-06 14:44 | ANE.PACU2 ---
Inpatient post-anesthesia follow up: Airway intact: Yes Vital signs: Temperature 98.0 F Pulse Rate 86 Respiratory Rate 18 Blood Pressure 116/66 Pulse Oximetry 96 Oxygen Delivery Me thod Room Air Oxygen Flow Rate Fraction of Inspir ed Oxygen Hydration adequate: Yes Nausea and vomiting: No Pain level: 1 Mental status: Baseline
[2021-12-06] MEDS: morphine 4 mg/mL SDV 1 mL 2 MG IVP (17:12)
[2021-12-06] MEDS: CELEcoxib 100 mg Capsule 200 MG PO (18:20)
[2021-12-06] MEDS: ropinirole 1 mg Tablet PO (18:20)
[2021-12-06] MEDS: sodium chloride 0.9% 1,000 ML 100 ML IV (18:21)
[2021-12-06] MEDS: zolpidem 5 mg Tablet 10 MG PO (21:05)
[2021-12-06] MEDS: fixodent 39 gm Tube 1 APPLIC DENTAL (21:37)
[2021-12-07] VITALS (16 sets, daily range): BP systolic 102–127; BP diastolic 57–77; PULSE 76–90; RESP 12–18; TEMP 36.4–36.8; O2SAT 92–99
[2021-12-07] MEDS: oxyCODONE 5 mg IR Tab/Cap 10 MG PO ×7 (00:36→21:26)
[2021-12-07] MEDS: acetaminophen 500 mg Tablet 1000 MG PO ×3 (00:36→17:26)
[2021-12-07 02:05] LABS: Hemoglobin 12.1 g/dL (11.5-15.3)
[2021-12-07] MEDS: sodium chloride 0.9% 1,000 ML 100 ML IV ×2 (04:06→14:07)
[2021-12-07] MEDS: lisinopril 20 mg Tablet PO (06:09)
[2021-12-07] MEDS: morphine 4 mg/mL SDV 1 mL 2 MG IVP ×3 (06:31→14:07)
--- NOTE | 2021-12-07 07:56 | P.DS_ITS ---
Discharge Providers Date of Admission: 12/06/21 15:32 Date of Discharge: December 08, 2021 Attending Provider at Admission: Edson Tay MD Attending Provider at Discharge: Edson Tay MD Primary Care Provider: CODY Johnson Diagnoses at Discharge Discharge Diagnosis (1) Osteoarthritis of right knee: Status: Resolved (2) Status post right knee replacement: Status: Acute Reason for Visit Reason for Visit: osteoarthritis of right knee Hospital Course Hospital Course The patient tolerated surgery well. They remained hemodynamically stable. They was begun on aspirin and aspirin for DVT prophylaxis. The patient was mobilized with therapy beginning the day of surgery but made very slow progress due to pain. As the pain was adequately controlled by the second postoperative day and they were fully mobile they were discharged home. Physical Exam Narrative: On the day of discharge the knee incision was clean. They had no drainage. There is minimal swelling in the thigh and knee and the calf. No distal neurovascular deficits were noted Discharge Data Studies Completed and Pending Completed Studies During Hospitalization Category Date Time Status XR knee RT 1-2V 64880 Routine Exams 12/06/21 11:49 Completed Radiology Impressions Knee X-Ray 12/06/21 11:49 Impression: Right knee arthroplasty. Laboratory Results Hgb 12.1 g/dL (11.5-15.3) 12/07/21 01:41 Vitals Last Vital Signs Temp 97.6 F 12/07/21 04:00 Pulse 79 12/07/21 04:00 Resp 18 12/07/21 06:31 BP 119/72 12/07/21 04:00 Pulse Ox 94 12/07/21 04:06 Discharge Plan Discharge Patient Disposition: Home Condition: Stable Prescriptions: New hydrocodone-acetaminophen 10-325 mg Tablet 1 tab PO Q4H PRN (Reason: Moderate Pain) 7 Days Qty: 40 0RF aspirin 325 mg Tablet,Delayed Release (Dr/Ec) 325 mg PO DAILY 30 Days 0RF gabapentin 300 mg Capsule 300 mg PO BID 14 Days Qty: 28 0RF Continued celecoxib [Celebrex] 100 mg capsule 100 mg PO BID Qty: 60 3RF zolpidem [Ambien] 10 mg tablet 10 mg PO .QHS 30 Days Qty: 30 1RF ropinirole 1 mg tablet 1 mg PO BID 90 Days Qty: 180 2RF lisinopril 20 mg tablet 20 mg PO QAM 0RF Changed acetaminophen 500 mg Tablet 1,000 mg PO Q8H PRN (Reason: Pain) Qty: 0 0RF Discontinued hydrocodone-acetaminophen 5-325 mg tablet 1 tab PO Q4H PRN (Reason: pain) 7 Days Qty: 30 0RF Discharge Orders: Discharge Order (Routine); Ordered 12/08/21 Ordered By: Edson Tay Other Ambulatory Orders: DME: Walker (Order) Location: None Selected Ordered By: Edson Tay Referrals: [facility] ([place], [place]) [Other] [facility] [place] Discharge Diet: Advance as tolerated Discharge Activity: Limit activity as instructed Patient Instructions: Opioid Safety Activity Restrictions/Additional Instructions: Okay to shower Keep Tubigauze sleeve in place for swelling. Okay to remove for hygiene. Apply FirstIce up to 20 min/hr for pain and swelling Take Celebrex twice a day for the next 15 days for pain , discontinue other anti-inflammatories Take Neurontin twice a day for 7 days. Take Tylenol 500mg (2 tabs) as needed 3 times a day for mild pain take oxycodone for breakthrough pain. Exercises per physical therapy. May weight-bear as tolerated on total knee arthroplasty IF HAVE ANY PROBLEMS OR QUESTIONS CALL [facility] AT AND ASK TO HAVE DR. SADAF BRAVO. Discharge Attestations Time Spent in Discharge Care*: other Quality Metrics Clinical Quality Measures [ No reported AMI, CVA or VTE this stay] Coding Level of Care Code Acute Chg FW AR note Diagnoses Status post right knee replacement Z96.651 Osteoarthritis of right knee M17.11
[2021-12-07] MEDS: aspirin 325 mg EC Tablet PO (08:18)
[2021-12-07] MEDS: ropinirole 1 mg Tablet PO ×2 (08:19→17:25)
[2021-12-07] MEDS: gabapentin 300 mg Capsule PO ×2 (08:19→17:25)
[2021-12-07] MEDS: CELEcoxib 100 mg Capsule 200 MG PO ×2 (08:19→17:25)
--- NOTE | 2021-12-07 15:03 | P.PN_ITS ---
Subjective Subjective: Still has quite a bit more pain than typical. Very slow progress with therapy Vitals/I&O/Wt Last Vital Signs Temp 98.3 F 12/07/21 11:59 Pulse 76 12/07/21 11:59 Resp 17 12/07/21 14:07 BP 102/63 12/07/21 11:59 Pulse Ox 99 12/07/21 11:59 12/07/21 12/07/21 12/07/21 06:59 14:59 22:59 Intake Total 1155 / 2605 1060 / 1060 Output Total 300 / 600 Balance / 2004 1060 / 1060 Weight last 48 hrs Weight 160 lb Physical Exam Narrative: Knee dressing clean and dry. Minimal swelling knee thigh and calf Data : 12/07/21 01:41 A&P Assessment and plan (1) Status post right knee replacement: Continue pain medications and physical therapy. Plan discharge home and tomorrow. Status: Acute Attestations Medical Necessity Statement*: Patient with insufficient pain control and poor amatory status. We will plan on discharge tomorrow. 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
--- NOTE | 2021-12-07 15:13 | PC.OT ---
OT EVALUATION ATTEMPTED IN A.M. AND P.M.; PATIENT EXPERIENCING SIGNIFICANT AMOUNT OF PAIN; TEARFUL. WILL ATTEMPT EVALUATION AGAIN TOMORROW.
[2021-12-07] MEDS: ondansetron 2 mg/ML SDV 2 mL 4 MG IVP (18:25)
[2021-12-07] MEDS: zolpidem 5 mg Tablet 10 MG PO (21:21)
[2021-12-07] MEDS: metoclopramide 5 mg/mL SDV 2 mL 10 MG IV (21:32)
[2021-12-08 00:31] VITALS: RESP 18; O2SAT 97
[2021-12-08] MEDS: oxyCODONE 5 mg IR Tab/Cap 10 MG PO ×3 (00:31→06:30)
[2021-12-08] MEDS: acetaminophen 500 mg Tablet 1000 MG PO (00:33)
[2021-12-08 03:26] VITALS: BP 113/61; PULSE 89; RESP 18; TEMP 36.9; O2SAT 94
[2021-12-08 03:39] VITALS: RESP 18; O2SAT 96
[2021-12-08 06:30] VITALS: RESP 18; O2SAT 95
[2021-12-08 08:00] VITALS: BP 135/69; PULSE 86; RESP 16; TEMP 37.1; O2SAT 94
[2021-12-08] MEDS: CELEcoxib 100 mg Capsule 200 MG PO (09:02)
[2021-12-08] MEDS: aspirin 325 mg EC Tablet PO (09:02)
[2021-12-08 09:04] VITALS: BP 135/69; PULSE 86; RESP 16; TEMP 37.1; O2SAT 94
[2021-12-08] MEDS: HYDROcodone-acetaminophen 10-325 mg Tablet 1 TAB PO (10:12)
== END 2021-12-08 11:30 | disposition home or self-care (01) ==
LOC: MEDSURG 15:35
PROVIDERS: Admitting Provider Orthopaedic Surgery; PCP Nurse Practitioner Family; Visit Provider Orthopaedic Surgery
PROC: (CPT 27447; principal; 2021-12-06 09:15)
DX: M17.11 Unilateral primary osteoarthritis, right knee (principal); M81.0 Age-related osteoporosis without current pathological fracture; K21.9 Gastro-esophageal reflux disease without esophagitis
CPT/HCPCS: 27447; 36415; 64447; 73560; 76942; 85018; 93005; 97110; 97116; 97161; 97166; C1776; G0378; J0171; J0690; J1100; J1170; J1580; J1885; J2250; J2270; J2405; J2704; J2710; J2765; J2795; J3010; J3490; J7030

== ENCOUNTER → 2022-01-03 11:33 | Outpatient (BNVA) | payer MEDICARE, SELFPAY | PROVIDERS: PCP Nurse Practitioner Family; Visit Provider Nurse Practitioner Family | DX: Z96.651 Presence of right artificial knee joint (principal); M54.10 Radiculopathy, site unspecified | CPT/HCPCS: 73560; 73565; 99214 ==

== ENCOUNTER → 2022-02-02 10:07 | Outpatient (BNVA) | payer MEDICARE, SELFPAY | PROVIDERS: PCP Nurse Practitioner Family; Visit Provider Orthopaedic Surgery | DX: Z96.651 Presence of right artificial knee joint (principal); M94.262 Chondromalacia, left knee; M17.11 Unilateral primary osteoarthritis, right knee | CPT/HCPCS: 20610; 99212; J7327 ==

== ENCOUNTER → 2022-02-07 10:42 | Outpatient (BNVA) | payer MEDICARE, SELFPAY | PROVIDERS: PCP Nurse Practitioner Family; Visit Provider Nurse Practitioner Family | DX: I10 Essential (primary) hypertension (principal); E03.9 Hypothyroidism, unspecified; G47.00 Insomnia, unspecified; E78.2 Mixed hyperlipidemia; E55.9 Vitamin D deficiency, unspecified | CPT/HCPCS: 80053; 80061; 82306; 85025 ==

== ENCOUNTER → 2022-06-06 09:14 | Outpatient (BNVA) | payer MEDICARE, SELFPAY | PROVIDERS: PCP Nurse Practitioner Family; Visit Provider Nurse Practitioner Family | DX: E78.2 Mixed hyperlipidemia (principal); I10 Essential (primary) hypertension; E55.9 Vitamin D deficiency, unspecified; N39.0 Urinary tract infection, site not specified; E03.9 Hypothyroidism, unspecified; M19.90 Unspecified osteoarthritis, unspecified site; R30.0 Dysuria; K21.9 Gastro-esophageal reflux disease without esophagitis; M54.50 Low back pain, unspecified; G25.81 Restless legs syndrome; G47.00 Insomnia, unspecified; L85.1 Acquired keratosis [keratoderma] palmaris et plantaris; Z12.31 Encounter for screening mammogram for malignant neoplasm of breast; B37.9 Candidiasis, unspecified | CPT/HCPCS: 80053; 80061; 84443; 87086 ==

== ENCOUNTER → 2022-08-24 07:59 | Outpatient (BNVA) | payer MEDICARE, SELFPAY | PROVIDERS: PCP Nurse Practitioner Family; Visit Provider Orthopaedic Surgery | DX: M17.12 Unilateral primary osteoarthritis, left knee (principal) | CPT/HCPCS: 99213 ==

== ENCOUNTER 2022-09-23 06:00 | Outpatient (CLI) | payer MEDICARE, SELFPAY | END 2022-09-23 06:01 | disposition home or self-care (01) | LOC: LAB 09-30 08:37 | PROVIDERS: PCP Nurse Practitioner Family; Visit Provider Anesthesiology | DX: N39.0 Urinary tract infection, site not specified (principal) | CPT/HCPCS: 36415; 80048; 85025 ==

== ENCOUNTER 2022-09-28 11:11 | Outpatient (CLI) | payer MEDICARE, SELFPAY ==
--- NOTE | 2022-09-28 11:27 | CT_ITS ---
WS: [id number] CT LEFT KNEE, NONCONTRAST TECHNIQUE: Noncontrast CT of the LEFT knee to include the LEFT hip and ankle. CLINICAL INFORMATION: pre op protocol DLP: 924.[address] scans at [facility] use at least one of these dose optimization techniques: automated e xposure control; mA and/or kV adjustment per patient size (includes targeted exams where dose is matc hed to clinical indication); or iterative reconstruction. FINDINGS: Moderate degenerative arthritis LEFT knee worse in the medial joint compartment. Small suprapatellar effusion. Moderate degenerative narrowing at the patellofemoral articulation.Sigmoid diverticulosis. Mild degenerative narrowing both hips. CT/CT knee LT wo con* [id number] IMPRESSION: Images obtained for preoperative purposes.
== END 2022-09-28 11:12 | disposition home or self-care (01) ==
LOC: RAD 11:14
PROVIDERS: PCP Nurse Practitioner Family; Visit Provider Orthopaedic Surgery
DX: M17.12 Unilateral primary osteoarthritis, left knee (principal)
CPT/HCPCS: 73700; 93005

== ENCOUNTER 2022-10-03 09:55 | Observation (INO) | payer MEDICARE, SELFPAY ==
--- NOTE | 2022-09-23 13:45 | ECG_ITS ---
[facility] Test Date: 2022-09-23 Pat Name: Jelly Banerjee Department: Room: Gender: Female Zigzagger: : [id number] Requested By: Paige Sim Order Number: [id number] Jocelyne MD: Musa Dale M.D. Measurements Intervals Admire Rate: 81 P: 36 WV: 161 QRS: -10 QRSD: 98 T: -10 QT: 355 QTc: 414 Interpretive Statements SINUS RHYTHM MODERATE VOLTAGE CRITERIA FOR LVH, CONSIDER NORMAL VARIANT [MEETS CRITERIA IN ONE OF: R(aVL), S(V1), R(V5), R(V5/V6)+S(V1)] Compared to ECG 12/01/2021 14:39:21 No significant changes Electronically Signed On 09-23-2022 16:23:01 RESIDENTIAL DIRECT SUPPORT PROFESSIONAL by Musa Dale M.D. [email or web address]
[2022-09-23 14:04] VITALS: BMI 28.3
--- NOTE | 2022-09-23 14:17 | P.ANESASSM_ITS ---
Pre-Anesthetic Assessment Height/Weight: Height 1.63 m Weight 74.843 kg Preop Diagnosis: Osteoarthritis right knee Operation Date: 10/03/22 07:00 Proposed Procedures p left total knee makoplasty/ 09875 M17.12(Left) - Edson Tay MD Familial anesthetic complications: NOne Social No alcohol and No tobacco Exam alert, oriented x 3, clear to auscultation bilaterally and regular rate & rhythm Airway Mallampati: Class III Dentition: false and partials Pulmonary None reported CV/HEM Hypertension None reported Hepatic None reported GI Gastroesophageal Reflux Disease Metabolic None reported Musc/skel Osteoarthritis/DJD Neuropsych None reported Anesthetic Plan ASA status: 3 Anesthesia: MAC and Regional (specify below) (spinal + adductor) Medications/Allergies Home Medications Medication Instructions Recorded Confirmed Last Taken Type acetaminophen 500 mg tablet 1,000 mg PO Q8H PRN Pain #0 tabs 12/07/21 09/23/22 08/26/22 Rx lisinopril 20 mg tablet See Rx Instructions .Route 06/06/22 09/23/22 09/23/22 Rx .COMPLEX #30 tabs methocarbamol 750 mg tablet 750 mg PO TID 90 days #270 tabs 06/06/22 09/23/22 09/23/22 Rx pantoprazole 40 mg tablet,delayed 40 mg PO DAILY 90 days #90 tabs 06/06/22 09/23/22 09/23/22 Rx release (Protonix) ropinirole 1 mg tablet 1 mg PO BID 90 days #180 tabs 06/06/22 09/23/22 07/21/22 Rx zolpidem 10 mg tablet (Ambien) 10 mg PO .QHS 30 days #30 tabs 08/11/22 09/23/22 09/22/22 Rx Allergies Allergy/AdvReac Type Severity Reaction Status Date / Time sertraline [From Zoloft] Allergy ADR-Nausea Verified 08/26/22 10:14 tramadol Allergy ADR-Vomitin Verified 08/26/22 10:14 g simvastatin AdvReac muscle Verified 08/26/22 10:14 cramps PFSH Anesthesia Medical History Left leg paresthesias Osteoporosis Paresthesia of right leg Restless leg Thyroid nodule Surgical History History of back surgery Social History Smoking and tobacco status: never smoked Second hand smoke exposure: No Alcohol intake: never Caregiver/support person: Yes Lives independently: No Household members: family Marital status: service: No Current occupational status: employed Current occupation: [email or web address] History of recent travel: No Current gender identity: Female Special gerber needs: No Data Anesthesia 09/23/22 13:45 Cardiac Studies: No Data to Display
[2022-09-23 14:29] LABS: Anion Gap 17.3 (5-19); Blood Urea Nitrogen 12 mg/dL (8-23); Calcium 9.6 mg/dL (8.5-10.5); Carbon Dioxide 25 mmol/L (22-29); Chloride 101 mmol/L (98-107); Glucose 147 mg/dL (65-115); Osmolality Calculated 290 mOsm/kg (285-295); Potassium 4.3 mmol/L (3.5-5.1); Sodium 139 mmol/L (136-145)
[2022-10-03] VITALS (22 sets, daily range): BP systolic 116–156; BP diastolic 69–113; PULSE 78–96; RESP 15–18; TEMP 36.4–37.1; O2SAT 92–98
[2022-10-03] MEDS: sodium chloride 0.9% 1,000 ML 30 ML IV (06:18)
[2022-10-03] MEDS: CELEcoxib 200 mg Capsule 400 MG PO (06:18)
[2022-10-03] MEDS: acetaminophen 500 mg Tablet 1000 MG PO (06:18)
[2022-10-03] MEDS: gabapentin 300 mg Capsule PO ×2 (06:18→18:07)
--- NOTE | 2022-10-03 06:42 | P.ANESUD_ITS ---
Pre-Anesthetic Update Pre-Anesthetic Assessment: Date of Surgery/Procedure: 10/03/22 Preop Pauline gnosis: Osteoarthritis left knee Proposed Procedure: Operation Date: 10/03/22 07:00 Proposed Procedures p left total knee makoplasty/ 87523 M17.12(Left) - Edson Tay MD Any changes to Pre-Anesthetic Assessment?: No Last Intake: Intake Last Liquid Date 10/02/22 Last Liquid Time 00:00 Last Solid Date 10/02/22 Last Solid Time 17:30 Vitals: Temperature 97.8 F 10/03/22 05:41 Pulse Rate 84 10/03/22 05:41 Respiratory Rate 18 10/03/22 05:41 Blood Pressure 156/105 10/03/22 06:10 Blood Pressure Linda n 122 10/03/22 06:10 Pulse Oximetry 97 10/03/22 05:41 Oxygen Delivery Me thod 10/03/22 05:55 Exam: Pre-Anes Outpt Exam: alert, oriented x 3, clear to auscultation bilaterally and regular rate & rhythm Cardiac Studies: No Data to Display
--- NOTE | 2022-10-03 06:43 | ANES.PROC ---
Anesthesia Procedures Procedure/Date: 10/03/22 Nerve Block ^: Nerve Block 1: Main Anesthesia: spinal anesthesia block Time Out Performed: Yes Consent: requested by attending/covering physician, from patient, from other, risks and benefits reviewed and patient agrees to proceed Nerve block location: adductor canal (L) Anesthesia monitors applied: pulse oximetry, EKG, BP cuff and oxygen Nerve block position: supine Anesthetic Used: ropivicaine 0.5% (30 ml) and with decadron (4 mg) Ultrasound used to: recognize landmarks and visualize and ID femerol nerve Nerve Stimulator Used?: No Interscalene/Femoral BLK: 4 stimuplex 21 g needle used for position and inplane approach, visualize local anesthetic spread and no vascular puncture identified Injection: neg aspiration of heme and paresthesia +/- Patient Tolerated Procedure: well and no complications Complications: none
[2022-10-03] MEDS: oxyCODONE 20 mg ER (12 HR) Tablet PO (06:45)
[2022-10-03] MEDS: midazolam 1 mg/mL INJ 2 mL 2 MG IVP (06:46)
--- NOTE | 2022-10-03 06:56 | P.HP_ITS ---
Same Day Surgery H&P Indication for Procedure/HPI DATE OF PROCEDURE: October 03, 2022 CHIEF COMPLAINT/INDICATIONFOR SURGICAL PROCEDURE: Osteoarthritis left knee here for left total knee arthroplasty PREOP DIAGNOSIS: Osteoarthritis left knee PLANNED PROCEDURE: Operation Date: 10/03/22 07:00 Proposed Procedures p left total knee makoplasty/ 76145 M17.12(Left) - Edson Tay MD 67-year-old here for elective left total knee arthroplasty.She describes the pain generally tolerable in her left knee but over the past months it is increased.? She states her current pain is severe.? She is unable to stand for any prolonged period of time.? She would like to build to go back to work this summer but is not certain her left knee will allow that.? Her current situation she is unable to walk much more than a block.? Acetaminophen and anti- inflammatories are no longer helping.? Patient states that her previous Monovisc injection on 02/02/22 gave her good relief for 2 months. She states that prior cortisone injections have not given her significant relief. She states that she would like to discuss total knee arthroplasty. She has a sister who help care for her but she was just recently released from the hospital with a myocardial infarction Medications/Allergies* Home Medications Medication Instructions Recorded Confirmed Type lisinopril 20 mg tablet 20 mg PO DAILY 10/03/22 10/03/22 History Allergies/Adverse Reactions Allergy/AdvReac Type Severity Reaction Status Date / Time sertraline [From Zoloft] Allergy ADR-Nausea Verified 10/03/22 05:53 tramadol Allergy ADR-Vomitin Verified 10/03/22 05:53 g simvastatin AdvReac muscle Verified 10/03/22 05:53 cramps Current Medications: Generic Name Dose Route Start Last Admin Trade Name Freq PRN Reason Stop Dose Admin Sodium Chloride 1,000 mls @ 30 mls/hr 10/03/22 06:15 10/03/22 06:18 Sodium Chloride 0.9% IV 10/04/22 06:14 30 mls/hr .Q24H RIGO Administration Midazolam HCl 2 mg 10/03/22 06:04 10/03/22 06:46 Midazolam 1 Mg/Ml Inj 2 Ml IVP 2 mg ONCE PRN Administration Preop Anxiety Pertinent History/Comorbid Conditions* Medical History (Updated 08/11/22 @ 09:39 by Nahomi Waddell NP) Left leg paresthesias Osteoporosis Paresthesia of right leg Restless leg Thyroid nodule Surgical History (Updated 12/07/21 @ 07:47 by Edson Tay MD) History of back surgery Social History Smoking and tobacco status: never smoked Second hand smoke exposure: No Alcohol intake: never Caregiver/support person: Yes Lives independently: No Household members: family Marital status: service: No Current occupational status: employed Current occupation: [employer] History of recent travel: No Current gender identity: Female Special gerber needs: No Pertinent Exam Findings alert, oriented x 3, clear to auscultation bilaterally and regular rate & rhythm Left knee Motion is short of full extension to 110 degrees Slight resting varus deformity Tender over medial joint line Patella tracks well Strong dorsalis pedis pulse By neuro exam lower extremity Recommendations Surgery/Procedure today Coding Level of Care Code Acute Code for Juliet Adams
[2022-10-03] MEDS: ceFAZolin 2,000 MG in sodium chloride 0.9% (plus) 50 ML 100 MG IV ×3 (07:05→22:48)
[2022-10-03] MEDS: tranexamic acid 1,000 mg/10mL SDV 1000 MG IV (07:25)
[2022-10-03] MEDS: EPINEPHrine 1 mg/mL INJ XX (08:05)
[2022-10-03] MEDS: ketorolac 30 mg/mL INJ XX (08:06)
[2022-10-03] MEDS: tranexamic acid 1,000 mg/10mL SDV 1000 MG IRRIGATION (08:07)
[2022-10-03] MEDS: sodium chloride 0.9% 100 mL Bag XX (08:08)
--- NOTE | 2022-10-03 09:14 | XR_ITS ---
WS: [id number] Exam: XR knee LT 1-2V 14048 Date/Time of Exam: 10/03/2022 9:22 AM Reason For Exam: Left Total knee arthroplasty Comparison 01/03/2022. A prosthesis replaces the distal femur and proximal tibia in satisfactory position. Postoperative carrillo nges in the adjacent soft tissues. XR/XR knee LT 1-2V 53464 IMPRESSION: 1. Left knee prosthesis in excellent position.
--- NOTE | 2022-10-03 09:15 | PM.OP ---
Operative Report Date of procedure: October 03, 2022 Pre-op diagnosis: Preop Diagnosis Osteoarthritis left knee Post-op diagnosis: same Post-op diagnosis: Same Post-op findings: Same Procedure done: Left total knee arthroplasty Implants: Monique Triathalon total knee arthroplasty components were used includin) Size 3 triathalon cruciate retaining femoral component 2) Size 3 Tritanium tibial component 3) Size 3/9 mm thickness CS tibial bearing insert Pathology: none sent Surgeon: Edson Tay Behavioral Intervention Specialist: Jett Wu Behavioral Intervention Specialist: The nurse practitioner the nurse practitioner assisted with critical portions of the case including positioning, draping, exposure, component implantation, closure and dressing application and is present through the entirety of the case. Anesthesia: Nerve Block (Spinal, adductor canal block) Estimated blood loss (mL): 100 Findings: The patient eburnated bone over the medial femoral condyle and medial tibial plateau. There was minimal patellar chondromalacia Condition: stable Disposition: PACU Procedure: The patient was taken to the operating room. Patient was given 1 g of tranexamic acid and 2 g of Ancef. The above anesthesia provided by the anesthesia service. A timeout was performed. The patient was prepped and draped in the usual fashion with the lower extremity exposed. A anterior incision was made, midline, from a point proximal to the patella to the distal tibial tubercle. The knee was entered through a medial parapatellar approach. The patella could be displaced laterally and the knee flexed. The patellar fat pad was resected to provide better visibility. Retractors were placed medially and laterally adjacent to the tibial plateau. At a point approximately 8 cm above the patella, 2 small incisions were made with a scalpel blade and 2 long threaded pins were placed into the anterior medial femur engaging both cortices. The femoral arrays were placed over these pins and secured. At a point 8 cm distal to the tibial tubercle. 2 shorter bicortical threaded pins were placed across the anterior medial tibia and the tibial arrays placed. A checkpoint was made just proximal and medial to the medial femoral condyle and just medial to the tibial plateau. Small osteotomes were placed in the joint in both flexion and extension to determine ligamentous laxity. []. The [employer] robot was then introduced to the field and the femur and tibia cut in accordance with our plan. he [employer] was then used to provide hemostasis, particularly about the posterior capsule. A trial with the above components provided excellent stability and full range of motion. The femur was then prepared for the femoral pegs of the component in the tibia for the tibial component. The femur and tibia were then press-fit into place. An osteotome was used to remove the lateral 8 mm of the patella to minimize chances of later impingement. A neurectomy was accomplished circumferentially about the patella with electrocautery and lateral osteophytes removed. The posterior capsule and collateral ligaments were then injected with a solution of 100 mL of 0.2% ropivacaine, 1 mL of a 1:1000 epinephrine solution, 30 mg of Toradol, and 1 g of tranexamic acid. Surfaces were cleaned with a gentamicin solution. The femur and tibia were then press-fit into place. Final polyethylene component was then snapped into place into the tibia. The extensor retinaculum was closed with a running 1 Stratafix interrupted 1 Ethibond. The subcutaneous tissues were closed with 2-0 Vicryl and the skin was closed with a running 4-0 Stratafix. The wound was covered with a Dermabond Prineo dressing. It was covered with 4xrs and a compressive Tubigauze was applied. The patient was taken to recovery room in stable condition.
[2022-10-03] MEDS: fentaNYL 50 mcg/mL INJ 2mL IVP (09:18)
--- NOTE | 2022-10-03 09:37 | SUR.PHASEI ---
0915 Bilat foot pumps and the pump and working well.
[2022-10-03] MEDS: sodium chloride 0.9% 1,000 ML 100 ML IV ×2 (10:27→21:06)
[2022-10-03] MEDS: oxyCODONE 5 mg IR Tab/Cap PO (11:50)
[2022-10-03] MEDS: morphine 4 mg/mL SDV 1 mL 2 MG IVP ×2 (13:12→19:26)
--- NOTE | 2022-10-03 13:58 | PC.NURSE ---
PT in room at this time.
--- NOTE | 2022-10-03 14:21 | ANE.PACU2 ---
Inpatient post-anesthesia follow up: Airway intact: Yes Vital signs: Temperature 97.9 F Pulse Rate 83 Respiratory Rate 16 Blood Pressure 119/76 Pulse Oximetry 97 Oxygen Delivery Me thod Nasal Cannula Oxygen Flow Rate 2 Fraction of Inspir ed Oxygen Hydration adequate: Yes Nausea and vomiting: No Pain level: 1 Mental status: Baseline
[2022-10-03] MEDS: methocarbamol 750 mg Tablet PO ×2 (15:21→21:07)
[2022-10-03] MEDS: HYDROcodone-acetaminophen 10-325 mg Tablet 1 TAB PO ×3 (15:21→21:07)
--- NOTE | 2022-10-03 17:25 | PC.NURSE ---
PT in room at this time. Pt. up to bathroom.
[2022-10-03] MEDS: CELEcoxib 200 mg Capsule PO (18:07)
[2022-10-03] MEDS: aspirin 325 mg Tablet PO (18:07)
[2022-10-03] MEDS: zolpidem 5 mg Tablet 10 MG PO (21:07)
[2022-10-04] MEDS: HYDROcodone-acetaminophen 10-325 mg Tablet 1 TAB PO ×3 (04:42→10:26)
[2022-10-04 04:53] LABS: Hemoglobin 11.2 g/dL (11.5-15.3)
[2022-10-04 05:03] VITALS: BP 168/81; PULSE 80; RESP 16; O2SAT 96
[2022-10-04] MEDS: ceFAZolin 2,000 MG in sodium chloride 0.9% (plus) 50 ML 100 MG IV (07:27)
[2022-10-04] MEDS: CELEcoxib 200 mg Capsule PO (07:29)
[2022-10-04] MEDS: pantoprazole DR 40 mg Tablet PO (07:30)
[2022-10-04] MEDS: gabapentin 300 mg Capsule PO (07:30)
--- NOTE | 2022-10-04 10:02 | P.DS_ITS ---
Discharge Providers Date of Admission: 10/03/22 09:55 Date of Discharge: October 04, 2022 Attending Provider at Admission: Edson Tay MD Attending Provider at Discharge: Edson Tay MD Primary Care Provider: Nahomi Waddell NP Diagnoses at Discharge Discharge Diagnosis (1) Status post left knee replacement: Status: Acute (2) Osteoarthritis of left knee: Status: Resolved Reason for Visit Reason for Visit: M17.12 Brief History: Ms. Banerjee is a 67-year-old female with progressive left knee pain. Failed to improve with medical management. She is admitted for left total knee arthroplasty Hospital Course Hospital Course The patient tolerated surgery well. They remained hemodynamically stable. They was begun on aspirin and foot pumps for DVT prophylaxis. The patient was mobilized with therapy beginning the day of surgery and by the first postoperative day independent with the walker. As the pain was adequately controlled and they were fully mobile they were discharged home. Physical Exam Narrative: On the day of discharge the knee incision was clean. They had no drainage. There is minimal swelling in the thigh and knee and the calf. No distal neurovascular deficits were noted Discharge Data Studies Completed and Pending Completed Studies During Hospitalization Category Date Time Status XR knee LT 1-2V 06642 Routine Exams 10/03/22 09:14 Completed Radiology Impressions Knee X-Ray 10/03/22 09:14 IMPRESSION: 1. Left knee prosthesis in excellent position. Laboratory Results Hgb 11.2 g/dL (11.5-15.3) L 10/04/22 04:50 Sodium 139 mmol/L (136-145) 09/23/22 13:45 Potassium 4.3 mmol/L (3.5-5.1) 09/23/22 13:45 Chloride 101 mmol/L (98-107) 09/23/22 13:45 Carbon Dioxide 25 mmol/L (22-29) 09/23/22 13:45 Anion Gap 17.3 (5-19) 09/23/22 13:45 BUN 12 mg/dL (8-23) 09/23/22 13:45 Creatinine 0.6 mg/dL (0.5-0.9) 09/23/22 13:45 GFR Calculation 100.0 mL/min (90-130) 09/23/22 13:45 Glucose 147 mg/dL (65-115) H 02/10/23 13:45 Calculated Osmolality 290 mOsm/kg (285-295) 09/23/22 13:45 Calcium 9.6 mg/dL (8.5-10.5) 09/23/22 13:45 Vitals Last Vital Signs Temp 98.0 F 10/03/22 20:38 Pulse 80 10/04/22 05:03 Resp 16 10/04/22 05:03 BP 168/81 10/04/22 05:03 Pulse Ox 96 10/04/22 05:03 O2 Del Method 10/04/22 05:03 O2 Flow Rate 2 10/03/22 14:55 Discharge Plan Discharge Patient Disposition: Home Condition: Stable Prescriptions: New hydrocodone-acetaminophen 10-325 mg Tablet 1 tab PO Q3H PRN (Reason: Moderate Pain) 7 Days Qty: 3 0RF celecoxib 200 mg Capsule 200 mg PO Q12H 14 Days Qty: 28 0RF gabapentin 300 mg Capsule 300 mg PO BID 7 Days Qty: 14 0RF Continued zolpidem [Ambien] 10 mg tablet 10 mg PO .QHS 30 Days Qty: 30 1RF methocarbamol 750 mg tablet 750 mg PO TID 90 Days Qty: 270 0RF pantoprazole [Protonix] 40 mg tablet,delayed release (DR/EC) 40 mg PO DAILY 90 Days Qty: 90 1RF ropinirole 1 mg tablet 1 mg PO BID 90 Days Qty: 180 2RF lisinopril 20 mg tablet 20 mg PO DAILY acetaminophen 500 mg Tablet 1,000 mg PO Q8H PRN (Reason: Pain) Qty: 0 0RF Discharge Orders: Discharge Order (Routine); Ordered 10/04/22 Ordered By: Edson Tay Other Ambulatory Orders: DME: Wheelchair (Order) Location: None Selected Ordered By: Edson Tay Referrals: Edson Tay MD [Physician] - 10/18/22 10:15 am Discharge Diet: Advance as tolerated Discharge Activity: Limit activity as instructed Patient Instructions: Knee Replacement (DC), OB Discharge Report, OB Food/Drug Interaction Guide, Opioid Safety Activity Restrictions/Additional Instructions: Okay to shower. No soaking incision in tub Apply FirstIce up to 20 min/hr for pain and swelling Take Celebrex twice a day for the next 15 days for pain , discontinue other anti-inflammatories Take Neurontin twice a day for 7 days. Take [place] 10 for breakthrough pain. Exercises per physical therapy. May weight-bear as tolerated on total hip arthroplasty IF HAVE ANY PROBLEMS OR QUESTIONS CALL HOSPITAL PREPARED FOODS PRODUCTION TEAM MEMBER AT AND ASK TO HAVE DR. SADAF BRAVO. Discharge Attestations Time Spent in Discharge Care*: other Quality Metrics Clinical Quality Measures [ No reported AMI, CVA or VTE this stay] Coding Level of Care Code Acute Code for Chg Fwd Diagnoses Status post left knee replacement Z96.652 Osteoarthritis of left knee M17.12
[2022-10-04] MEDS: aspirin 325 mg Tablet PO (10:26)
[2022-10-04] MEDS: methocarbamol 750 mg Tablet PO (10:26)
[2022-10-04] MEDS: lisinopril 20 mg Tablet PO (10:27)
[2022-10-04 10:29] VITALS: RESP 16
[2022-10-04] MEDS: morphine 4 mg/mL SDV 1 mL 2 MG IVP (10:29)
[2022-10-04] MEDS: ondansetron 2 mg/ML SDV 2 mL 4 MG IVP (10:42)
[2022-10-04 10:45] VITALS: BP 124/81; PULSE 83; RESP 16; TEMP 36.6; O2SAT 97
== END 2022-10-04 11:30 | disposition home health service (06) ==
LOC: OBGYN 09:56
PROVIDERS: Anesthesiology; Admitting Provider Orthopaedic Surgery; PCP Nurse Practitioner Family; Visit Provider Orthopaedic Surgery
PROC: 8E0Y0CZ Robotic Assisted Procedure of Lower Extremity, Open Approach (ICD-10-PCS; CPT 27447; principal; 2022-10-03 07:00)
DX: M17.12 Unilateral primary osteoarthritis, left knee (principal); I10 Essential (primary) hypertension; K21.9 Gastro-esophageal reflux disease without esophagitis
CPT/HCPCS: 27447; 36415; 73560; 80048; 85018; 96374; 97110; 97116; 97161; 97165; C1776; G0378; J0171; J0690; J1100; J1580; J1885; J2250; J2270; J2370; J2405; J2704; J2795; J3010; J7030

== ENCOUNTER → 2022-11-15 10:10 | Outpatient (BNVA) | payer MEDICARE, SELFPAY | PROVIDERS: PCP Nurse Practitioner Family; Visit Provider Orthopaedic Surgery | DX: Z96.652 Presence of left artificial knee joint (principal) | CPT/HCPCS: 73560; 73565; 99024 ==

== ENCOUNTER → 2022-11-18 11:04 | Outpatient (BNVA) | payer MEDICARE, SELFPAY | PROVIDERS: PCP Nurse Practitioner Family; Visit Provider Nurse Practitioner Family | DX: R30.0 Dysuria (principal); I10 Essential (primary) hypertension; E78.2 Mixed hyperlipidemia; E03.9 Hypothyroidism, unspecified | CPT/HCPCS: 80053; 80061; 84443 ==

== ENCOUNTER → 2023-02-09 15:53 | Outpatient (BNVA) | payer MEDICARE, SELFPAY | PROVIDERS: PCP Nurse Practitioner Family; Visit Provider Student in an Organized Health Care Education/Training Program | DX: Z96.652 Presence of left artificial knee joint (principal); M25.562 Pain in left knee | CPT/HCPCS: 73560; 73565; 80053; 85025; 85651; 99213 ==

== ENCOUNTER → 2023-02-13 09:50 | Outpatient (BNVA) | payer MEDICARE, SELFPAY | PROVIDERS: PCP Nurse Practitioner Family; Visit Provider Nurse Practitioner Family | DX: I10 Essential (primary) hypertension (principal); E78.2 Mixed hyperlipidemia; E03.9 Hypothyroidism, unspecified; M25.562 Pain in left knee; Z96.652 Presence of left artificial knee joint | CPT/HCPCS: 80053; 80061; 84443 ==

== ENCOUNTER → 2023-03-07 13:51 | Outpatient (BNVA) | payer MEDICARE, SELFPAY | PROVIDERS: PCP Nurse Practitioner Family; Visit Provider Student in an Organized Health Care Education/Training Program | DX: Z96.652 Presence of left artificial knee joint (principal); M76.32 Iliotibial band syndrome, left leg | CPT/HCPCS: 99213 ==

== ENCOUNTER 2023-03-08 09:52 | Outpatient (CLI) | payer MEDICARE, SELFPAY ==
[2023-03-08 10:52] LABS: C Reactive Protein 3.6 mg/L (0.0-4.9)
== END 2023-03-08 09:53 | disposition home or self-care (01) ==
LOC: LAB 09:55
PROVIDERS: PCP Nurse Practitioner Family; Visit Provider Student in an Organized Health Care Education/Training Program
DX: Z96.652 Presence of left artificial knee joint (principal)
CPT/HCPCS: 36415; 86140

== ENCOUNTER 2023-06-06 06:00 | Outpatient (RCR) | payer MEDICARE, SELFPAY | END 2023-06-13 23:59 | disposition home or self-care (01) | LOC: TPT 06:00 | PROVIDERS: Visit Provider Orthopaedic Surgery | DX: G89.29 Other chronic pain (principal); Z96.652 Presence of left artificial knee joint; M25.562 Pain in left knee | CPT/HCPCS: 97161 ==

== ENCOUNTER → 2023-07-20 10:12 | Outpatient (BNVA) | payer MEDICARE, SELFPAY | PROVIDERS: Visit Provider Nurse Practitioner Family | DX: N39.0 Urinary tract infection, site not specified (principal); I10 Essential (primary) hypertension; E78.2 Mixed hyperlipidemia; E03.9 Hypothyroidism, unspecified; E55.9 Vitamin D deficiency, unspecified | CPT/HCPCS: 80053; 80061; 82306; 84443 ==

== ENCOUNTER → 2023-09-08 08:58 | Outpatient (BNVA) | payer MEDICARE, SELFPAY | PROVIDERS: Visit Provider Nurse Practitioner Family | DX: N39.0 Urinary tract infection, site not specified (principal) | CPT/HCPCS: 81000 ==

== ENCOUNTER → 2023-11-28 09:10 | Outpatient (BNVA) | payer MEDICARE, SELFPAY | PROVIDERS: Visit Provider Nurse Practitioner Family | DX: L82.1 Other seborrheic keratosis (principal); L82.0 Inflamed seborrheic keratosis; D48.5 Neoplasm of uncertain behavior of skin; D22.39 Melanocytic nevi of other parts of face; L81.4 Other melanin hyperpigmentation; L57.8 Other skin changes due to chronic exposure to nonionizing radiation | CPT/HCPCS: 11102; 17110; 99213 ==

== ENCOUNTER → 2023-12-08 09:29 | Outpatient (BNVA) | payer MEDICARE, SELFPAY | PROVIDERS: Visit Provider Physician Assistant | DX: Z96.652 Presence of left artificial knee joint (principal); M25.562 Pain in left knee | CPT/HCPCS: 73560; 73565; 99213 ==

== ENCOUNTER 2023-12-15 10:25 | Outpatient (CLI) | payer MEDICARE, SELFPAY ==
--- NOTE | 2023-12-15 10:30 | CTR_ITS ---
PROCEDURE INFORMATION: Exam: CT Left Lower Extremity Without Contrast, Knee Exam date and time: 12/15/2023 10:39 AM Age: 68 years old Clinical indication: Left; Prior surgery; Surgery date: 6+ months; Surgery type: Total knee 09/2022; Patient HX: Total knee replacement 09/2022 with continued pain and swelling; Additional info: Prior left tka, rule out hardware failure/loosening TECHNIQUE: Imaging protocol: CT of the left lower extremity without contrast was performed. Exam focused on the knee. Radiation optimization: All CT scans at this facility use at least one of these dose optimization techniques: automated exposure control; mA and/or kV adjustment per patient size (includes targeted exams where dose is matched to clinical indication); or iterative reconstruction. COMPARISON: CT knee LT wo con* [id number] 09/28/2022 11:38 AM RADIATION DOSE METRICS: Total DLP (mGy-cm): 506.73 FINDINGS: Bones/joints: The intact well-aligned total knee arthroplasty. No sign of loosening. No fracture. No significant joint effusion. Soft tissues: Visible soft tissues are unremarkable. CT/CT knee LT wo con* [id number] IMPRESSION: Intact well-aligned total knee arthroplasty. No apparent complications.
== END 2023-12-15 10:26 | disposition home or self-care (01) ==
LOC: RAD 10:26
PROVIDERS: Visit Provider Physician Assistant
DX: Z96.652 Presence of left artificial knee joint (principal); M25.562 Pain in left knee
CPT/HCPCS: 73700

== ENCOUNTER 2024-04-03 06:00 | Outpatient (CLI) | payer MEDICARE, SELFPAY | END 2024-04-03 06:01 | disposition home or self-care (01) | LOC: RAD 04-22 09:27 | PROVIDERS: Visit Provider Nurse Practitioner Family | DX: E78.2 Mixed hyperlipidemia (principal); E03.9 Hypothyroidism, unspecified; I10 Essential (primary) hypertension; E55.9 Vitamin D deficiency, unspecified | CPT/HCPCS: 80053; 80061; 84443; 85025 ==

== ENCOUNTER 2024-06-21 12:43 | Outpatient (CLI) | payer MEDICARE, SELFPAY ==
--- NOTE | 2024-06-21 12:48 | MM_ITS ---
WS: [id number] BILATERAL 3D TOMOSYNTHESIS DIGITAL SCREENING MAMMOGRAPHY WITH CAD CLINICAL INFORMATION: SCREENING HISTORY: Screening mammogram. No current complaints. COMPARISON: 2018 TECHNIQUE: Bilateral CC and MLO views. FINDINGS: Scattered fibroglandular densities bilaterally. No suspicious focal mass, asymmetry, calcifications, or architectural distortion. No evidence of malignancy. Incidental punctate and lucent centered calci fications. MM/MM scr BI tomosynthesis [id number] IMPRESSION: DENSITY: There are scattered areas of fibroglandular density. BI-RADS: 2 - Benign. FOLLOW UP: 1 Year Follow-up Recommend return to annual screening mammography.
== END 2024-06-21 12:44 | disposition home or self-care (01) ==
LOC: RAD 12:44
PROVIDERS: Visit Provider Nurse Practitioner Family
DX: Z12.31 Encounter for screening mammogram for malignant neoplasm of breast (principal)
CPT/HCPCS: 77063; 77067

== ENCOUNTER 2024-10-05 15:09 | Emergency (ER) | payer OTHER, MEDICARE, SELFPAY ==
[2024-10-05 15:10] VITALS: BP 146/77; PULSE 102; RESP 14; TEMP 36.9; O2SAT 98; BMI 27.3
[2024-10-05 15:18] VITALS: PULSE 97; O2SAT 98
--- NOTE | 2024-10-05 15:29 | CTR_ITS ---
PROCEDURE INFORMATION: Exam: CT Abdomen And Pelvis With Contrast Exam date and time: 10/05/2024 4:15 PM Age: 69 years old Clinical indication: Abdominal pain; Additional info: Abd pain TECHNIQUE: Imaging protocol: Computed tomography of the abdomen and pelvis with contrast. Radiation optimization: All CT scans at this facility use at least one of these dose optimization techniques: automated exposure control; mA and/or kV adjustment per patient size (includes targeted exams where dose is matched to clinical indication); or iterative reconstruction. Contrast material: OMNI 350; Contrast volume: 100 ml; Contrast route: INTRAVENOUS (IV); COMPARISON: CT abdomen pelvis w con* [id number] 11/13/2021 9:04 AM RADIATION DOSE METRICS: Total DLP (mGy-cm): 528.63 FINDINGS: Lungs: The lung bases are clear. Heart: Heart size is within normal limits. There is no pericardial effusion or pericardial thickening. Diaphragm: [id number] hiatal hernia. Liver: There is suggestion of fatty liver, suboptimally assessed on postcontrast imaging. The liver is otherwise normal. Gallbladder and biliary ducts: The gallbladder is surgically absent. Stable mild common duct dilatation. Pancreas: The pancreas is normal. Spleen: The spleen is normal. Adrenal glands: The adrenal glands are normal. Kidneys and ureters: There is normal enhancement of the kidneys. No renal calcifications are identified. There is no hydronephrosis. There are bilateral subcentimeter renal low-density lesions which are too small for accurate characterization, likely representing simple cysts. Stomach and bowel: Moderate to marked diverticulosis. Focal thickening and inflammatory change associated with a proximal sigmoid diverticulum consistent with acute diverticulitis. No large or small bowel obstruction. No other areas of bowel wall thickening. Appendix: A normal appendix is not identified. There is no secondary evidence of acute appendicitis. Intraperitoneal space: No other inflammatory changes are identified. There is no free fluid or fluid collection seen. There is no pneumoperitoneum. Vasculature: Atherosclerotic calcifications of the aorta are present. No aneurysm is identified. Lymph nodes: No enlarged lymph nodes are identified. Urinary bladder: The bladder is unremarkable. Reproductive: The uterus is present. 2 cm left adnexal cyst, not present on the prior study. Bones/joints: Chronic appearing superior endplate height loss of T11. No acute osseous abnormalities are seen. Soft tissues: Small periumbilical hernia containing only fat. CT/CT abdomen pelvis w con* [id number] IMPRESSION: 1. Diverticulitis of the proximal sigmoid colon. No fluid collection or pneumoperitoneum. 2. 2 cm left adnexal cyst, not present on the prior study. Recommend nonemergent follow-up pelvic ultrasound if patient is postmenopausal. 3. Other nonemergent findings above. COMMENTS: Consistent with the [employer]'s Incidental Findings Committee white paper (J Am Zoe Radiol 2018): Any incidental renal lesion less than 1 cm or classified as too small to characterize, or any incidental cystic renal lesion characterized as simple-appearing, is likely benign. No follow-up imaging is recommended for these lesions per consensus recommendations based on imaging criteria.
[2024-10-05 15:37] LABS: Basophils # 0.1 10^3/uL (0.0-0.1); Basophils % 0.6 %; Eosinophils # 0.2 10^3/uL (0.0-0.8); Eosinophils % 2.5 %; Lymphocytes # 2.1 10^3/uL (0.8-4.8); Mean Corpuscular Hemoglobin 24.8 pg (27-33); Mean Corpuscular Volume 77.4 fl (85-98); Mean Platelet Volume 11.7 fL (7.4-10.4); Monocytes # 0.5 10^3/uL (0.2-0.9); Monocytes % 6.2 %; Neutrophils # 4.87 10^3/uL (1.8-7.7); Neutrophils % 63.3 %; Nucleated Red Blood Cells % 0 %; Platelet Count 188 10^3/cmm (157-399); Red Blood Count 4.52 10^6/uL (3.85-5.65)
--- NOTE | 2024-10-05 15:51 | W.ED.ABDPA2 ---
HPI - Abdominal Pain General: Chief Complaint: Abdominal Pain Stated Complaint: abd pain Time Seen by Provider: 10/05/24 15:12 History of Present Illness: 69-year-old female presents emergency room with left lower quadrant pain that began 3 days ago. She has persistent diarrhea and loose stools she denies hematochezia or melena hematemesis hematemesis or coffee-ground emesis. She is had a diverticulitis episode in the past with colonoscopy that recommends diverticuli previously. She has not previously had any abdominal surgery no perforation or abscess associated with previous episode of diverticuli. When she had a colonoscopy states there were no polyps removed. Associated Symptoms: Reports diarrhea and nausea; Denies chills, coffee ground emesis, dysuria, fever(s), hematochezia, hematemesis, melena and vomiting Related Data Previous Rx's ?Medication ?Instructions ?Recorded acetaminophen 500 mg tablet 1,000 mg (2 x 500 mg) PO Q8H PRN 12/07/21 Pain #0 tabs benzonatate 100 mg capsule 100 mg PO TID PRN cough #90 caps 09/12/23 fexofenadine 60 mg-pseudoephedrine 1 tab PO Q12H PRN sinus symptoms 09/25/23 ER 120 mg tablet,ext.release,12 hr #20 tabs (Casandra-D 12 Hour) clonidine HCl 0.1 mg tablet 0.1 mg PO TID HTN #60 tabs 12/27/23 alprazolam 0.25 mg tablet 0.25 mg PO BID PRN anxiety #60 tabs 05/01/24 amlodipine 10 mg tablet 10 mg PO DAILY 90 days #90 tabs 05/01/24 lisinopril 20 mg tablet 20 mg PO BID 90 days #180 tabs 05/01/24 pantoprazole 40 mg tablet,delayed 40 mg PO BID 90 days #180 tabs 05/01/24 release (Protonix) zolpidem 10 mg tablet (Ambien) 10 mg PO .QHS 30 days #30 tabs 05/01/24 ciprofloxacin HCl 500 mg tablet 500 mg PO BID #20 tabs 10/05/24 (Cipro) hydrocodone 5 mg-acetaminophen 325 1 tab PO Q6H PRN pain #20 tabs 10/05/24 mg tablet metronidazole 500 mg tablet 500 mg PO BID 7 days #14 tabs 10/05/24 promethazine 25 mg tablet 25 mg PO Q6H PRN nausea and 10/05/24 vomiting #20 tabs Allergies Allergy/AdvReac Type Severity Reaction Status Date / Time sertraline (From Zoloft) Allergy ADR-Nausea Verified 12/08/23 09:33 tramadol Allergy ADR-Vomitin Verified 12/08/23 09:33 g simvastatin AdvReac muscle Verified 12/08/23 09:33 cramps Review of Systems Const: Denies: fever(s) or chills Card: Denies: chest pain Resp: Denies: dyspnea GI: Reports: abdominal pain, nausea and diarrhea; Denies: vomiting, hematemesis, coffee ground emesis, hematochezia or melena : Denies: dysuria, urinary frequency or urinary urgency Musc: Denies: neck pain or back pain Skin/Breast: Denies: rash PFSH ED PFSH: Medical History Osteoporosis Paresthesia of right leg Left leg paresthesias Restless leg Thyroid nodule Surgical History History of back surgery Social History Smoking and tobacco/nicotine status: former use of tobacco/nicotine Second hand smoke exposure: No Alcohol intake: never Substance/Drug Use: never Caregiver/support person: Yes Lives independently: No Household members: family Marital status: service: No Current occupational status: employed Current occupation: [employer] Current gender identity: Female Special gerber needs: No Physical Exam Const: GENERAL APPEARANCE: cooperative ORIENTATION/CONSCIOUSNESS: Yes awake, Yes oriented to person, Yes oriented to place and Yes oriented to time HENMT: COMMON NORMALS: normocephalic, atraumatic and hearing grossly normal bilaterally HEAD & SCALP: normocephalic and atraumatic Resp: COMMON NORMALS: normal respiratory effort, No retractions, No use of accessory muscles and clear to auscultation bilaterally AUSCULTATION: clear to auscultation bilaterally Cardio: COMMON NORMALS: regular rate, regular rhythm and No murmurs present (Cardio) RATE: regular rate RHYTHM: regular rhythm GI: COMMON NORMALS: No hepatosplenomegaly present AUSCULTATION: Yes normoactive bowel sounds PALPATION: Yes Tenderness to palpation present (GI) Details: LLQ, No Guarding due to palpation present (GI) and Yes No hepatosplenomegaly present Extremity: COMMON NORMALS: normal to inspection, capillary refill normal, no clubbing, cyanosis or edema, no calf tenderness and no pedal edema Neuro: SENSORIUM/ORIENTATION: Yes oriented to person, Yes oriented to place and Yes oriented to time Skin: COMMON NORMALS: no rashes or lesions noted GENERAL SKIN EXAM: no rashes or lesions noted Course Vital Signs: Vital signs: Vital Signs Temperature 98.4 F 10/05/24 15:10 Pulse Rate 80 10/05/24 17:54 Respiratory Rate 20 H 10/05/24 17:31 Blood Pressure 132/82 10/05/24 17:54 Pulse Oximetry 98 10/05/24 17:54 Oxygen Delivery Me thod Room Air 10/05/24 15:18 MDM - Abdominal Pain Medical Decision Making Mild diverticulitis and no evidence of abscess perforation no pneumatosis. Will discharge home with Cipro metronidazole. hydrocodone promethazine as needed. Follow-up with primary care Differential Diagnosis Likely abdominal pain, calculus of kidney, constipation, diverticulitis, gastroenteritis and small bowel obstruction Medical Records I reviewed the patient's medical records. Lab Data I reviewed the patient's lab results. 10/05/24 14:38 10/05/24 14:38 Labs/Radiology: Radiology Impressions Abdomen/Pelvis CT 10/05/24 15:29 IMPRESSION: 1. Diverticulitis of the proximal sigmoid colon. No fluid collection or pneumoperitoneum. 2. 2 cm left adnexal cyst, not present on the prior study. Recommend nonemergent follow-up pelvic ultrasound if patient is postmenopausal. 3. Other nonemergent findings above. COMMENTS: Consistent with the [employer]'s Incidental Findings Committee white paper (J Am Zoe Radiol 2018): Any incidental renal lesion less than 1 cm or classified as too small to characterize, or any incidental cystic renal lesion characterized as simple-appearing, is likely benign. No follow-up imaging is recommended for these lesions per consensus recommendations based on imaging criteria. Laboratory Results WBC 7.70 10^3/uL (3.29-11.43) 10/05/24 14:38 RBC 4.52 10^6/uL (3.85-5.65) 10/05/24 14:38 Hgb 11.20 g/dL (11.27-16.99) L 10/05/24 14:38 Hct 35.0 % (36-47) L 10/05/24 14:38 MCV 77.4 fl (85-98) L 10/05/24 14:38 MCH 24.8 pg (27-33) L 10/05/24 14:38 MCHC 32.0 g/dL (30-55) 10/05/24 14:38 RDW 14.0 % (12.1-15.1) 10/05/24 14:38 Plt Count 188 10^3/cmm (157-399) 10/05/24 14:38 MPV 11.7 fL (7.4-10.4) H 10/05/24 14:38 Neut % (Auto) 63.3 % 10/05/24 14:38 Lymph % (Auto) 27.0 % 10/05/24 14:38 [place] % (Auto) 6.2 % 10/05/24 14:38 Eos % (Auto) 2.5 % 10/05/24 14:38 Baso % (Auto) 0.6 % 10/05/24 14:38 Neut # (Auto) 4.87 10^3/uL (1.8-7.7) 10/05/24 14:38 Lymph # (Auto) 2.1 10^3/uL (0.8-4.8) 10/05/24 14:38 [place] # (Auto) 0.5 10^3/uL (0.2-0.9) 10/05/24 14:38 Eos # (Auto) 0.2 10^3/uL (0.0-0.8) 10/05/24 14:38 Baso # (Auto) 0.1 10^3/uL (0.0-0.1) 10/05/24 14:38 Nucleated RBC % (auto) 0 % 10/05/24 14:38 Nucleated RBCs # 0.0 /100WBC 10/05/24 14:38 Sodium 137 mmol/L (136-145) 10/05/24 14:38 Potassium 3.9 mmol/L (3.5-5.1) 10/05/24 14:38 Chloride 104 mmol/L (98-107) 10/05/24 14:38 Carbon Dioxide 20 mmol/L (22-29) L 10/05/24 14:38 Anion Gap 16.9 (5-19) 10/05/24 14:38 BUN 15 mg/dL (8-23) 10/05/24 14:38 Creatinine 0.7 mg/dL (0.5-0.9) 10/05/24 14:38 GFR Calculation 83.2 mL/min (90-130) L 10/05/24 14:38 Glucose 192 mg/dL (65-115) H 10/05/24 14:38 Calculated Osmolality 290 mOsm/kg (285-295) 10/05/24 14:38 Calcium 9.1 mg/dL (8.5-10.5) 10/05/24 14:38 Total Bilirubin 0.2 mg/dL (0.15-1.2) 10/05/24 14:38 AST 18 U/L (0-32) 10/05/24 14:38 ALT 18 U/L (0-33) 10/05/24 14:38 Alkaline Phosphatase 72 U/L (35-105) 10/05/24 14:38 Total Protein 7.1 g/dL (6.6-8.7) 10/05/24 14:38 Albumin 4.5 g/dL (3.5-5.2) 10/05/24 14:38 Globulin 2.6 g/dL (1.3-4.6) 10/05/24 14:38 Lipase 43 U/L (13-60) 10/05/24 14:38 Urine Color Yellow (Yellow) 10/05/24 15:43 Urine Appearance Clear (CLEAR) 10/05/24 15:43 Urine pH 5.0 (5-7) 10/05/24 15:43 Ur Specific [place] 1.023 (1.005-1.030) 10/05/24 15:43 Urine Protein Negative (Negative) 10/05/24 15:43 Urine Glucose (UA) Negative (Normal) 10/05/24 15:43 Urine Ketones Negative (Negative) 10/05/24 15:43 Urine Blood Negative (Negative) 10/05/24 15:43 Urine Nitrate Negative (Negative) 10/05/24 15:43 Urine Bilirubin Negative (Negative) 10/05/24 15:43 Urine Urobilinogen 0.2 mg/dL (Negative) 10/05/24 15:43 Ur Leukocyte Esterase Trace (Negative) A 10/05/24 15:43 Urine RBC None /hpf (0-2) 10/05/24 15:43 Urine WBC Rare /hpf (0-5) 10/05/24 15:43 Ur Squamous Epith Cells Rare /hpf (0-5) 10/05/24 15:43 Amorphous Sediment Not Reportable 10/05/24 15:43 Urine Bacteria None /hpf (NONE) 10/05/24 15:43 All radiology interpretation(s) finalized by discharge Discharge Plan Discharge Patient Disposition: Home Clinical Impression: Diverticulitis Condition: Stable Prescriptions: New hydrocodone-acetaminophen 5-325 mg tablet 1 tab PO Q6H PRN (Reason: pain) Qty: 20 0RF promethazine 25 mg tablet 25 mg PO Q6H PRN (Reason: nausea and vomiting) Qty: 20 0RF ciprofloxacin HCl [Cipro] 500 mg tablet 500 mg PO BID Qty: 20 0RF metronidazole 500 mg tablet 500 mg PO BID 7 Days Qty: 14 0RF No Action benzonatate 100 mg capsule 100 mg PO TID PRN (Reason: cough) Qty: 90 0RF fexofenadine-pseudoephedrine [Casandra-D 12 Hour] 60-120 mg tablet extended release 12 hr 1 tab PO Q12H PRN (Reason: sinus symptoms) Qty: 20 0RF clonidine HCl 0.1 mg tablet 0.1 mg PO TID Qty: 60 0RF Rx Instructions: Take 1 if SBP>180 or DP >100 alprazolam 0.25 mg tablet 0.25 mg PO BID PRN (Reason: anxiety) Qty: 60 0RF amlodipine 10 mg tablet 10 mg PO DAILY 90 Days Qty: 90 1RF lisinopril 20 mg tablet 20 mg PO BID 90 Days Qty: 180 1RF pantoprazole [Protonix] 40 mg tablet,delayed release (DR/EC) 40 mg PO BID 90 Days Qty: 180 1RF zolpidem [Ambien] 10 mg tablet 10 mg PO .QHS 30 Days Qty: 30 1RF acetaminophen 500 mg Tablet 1,000 mg PO Q8H PRN (Reason: Pain) Qty: 0 0RF Discharge Orders: Discharge ED (Routine); Ordered 10/05/24 Ordered By: Benjamin Harvey Discharge Diet: As Directed Patient Instructions: Diverticulitis (ED), Diverticulitis Diet (ED), Opioid Safety, Pain Management Activity Restrictions/Additional Instructions: Thank you for choosing [facility] for your healthcare needs today. It is very important that you follow up as instructed or that you return to the Emergency Department should you have concerns or if your condition changes or worsens in any way. You were seen in the emergency room with complaint left lower quadrant abdominal pain. Your white count is normal CT shows evidence of diverticulitis there is no abscess or perforation. Diverticulitis can be managed as an outpatient recommend starting oral antibiotics ciprofloxacin and metronidazole 1 pill twice a day of each for 7 days. You are also given medication for pain and nausea that you can use as needed. Follow-up with your primary care doctor. Print Language: Kyrgyz Coding Level of Care Code ED Office Administration Instructor for Juliet Adams
[2024-10-05 15:52] LABS: Alanine Aminotransferase 18 U/L (0-33); Albumin Level 4.5 g/dL (3.5-5.2); Alkaline Phosphatase 72 U/L (35-105); Anion Gap 16.9 (5-19); Aspartate Amino Transferase 18 U/L (0-32); Blood Urea Nitrogen 15 mg/dL (8-23); Calcium 9.1 mg/dL (8.5-10.5); Carbon Dioxide 20 mmol/L (22-29); Chloride 104 mmol/L (98-107); Creatinine Clr Calc Pharmacy 58.4252; Globulin 2.6 g/dL (1.3-4.6); Glomerular Filtration Rate 83.2 mL/min (90-130); Glucose 192 mg/dL (65-115); Lipase 43 U/L (13-60); Osmolality Calculated 290 mOsm/kg (285-295); Potassium 3.9 mmol/L (3.5-5.1); Sodium 137 mmol/L (136-145); Total Bilirubin 0.2 mg/dL (0.15-1.2); Total Protein 7.1 g/dL (6.6-8.7)
[2024-10-05 15:53] LABS: Bilirubin Urine Negative (Negative); Blood Urine Negative (Negative); Glucose Urine UA Negative (Normal); Ketones Urine Negative (Negative); Leukocyte Esterase Urine Trace (Negative); Nitrate Urine Negative (Negative); Protein Urine Negative (Negative); Specific Gravity, Urine 1.023 (1.005-1.030); Urine Appearance Clear (CLEAR); Urine Color Yellow (Yellow); Urobilinogen Urine 0.2 mg/dL (Negative)
[2024-10-05 16:01] LABS: Add Urine Culture? No; Add Urine Microscopic? YES; Squamous Epithelial Cell Urine RARE /hpf (0-5); UA Manual Slide Review YES; UA Slide Review UA Slide Review Perf; WBC Urine RARE /hpf (0-5)
[2024-10-05] MEDS: iohexol 350 mg/mL 500 mL Btl (per mL) IV (16:19)
[2024-10-05 17:18] VITALS: BP 134/92; PULSE 92; O2SAT 98
[2024-10-05 17:31] VITALS: RESP 20; O2SAT 98
[2024-10-05] MEDS: fentaNYL 50 mcg/mL INJ 2mL 25 MCG IVP (17:31)
[2024-10-05] MEDS: ondansetron 2 mg/ML SDV 2 mL 4 MG IVP (17:31)
[2024-10-05 17:54] VITALS: BP 132/82; PULSE 80; O2SAT 98
== END 2024-10-05 17:55 | disposition home or self-care (01) ==
PROVIDERS: Emergency Provider Family Medicine
DX: K57.92 Diverticulitis of intestine, part unspecified, without perforation or abscess without bleeding (principal); Z87.891 Personal history of nicotine dependence
CPT/HCPCS: 74177; 80053; 81001; 83690; 85025; 96374; 96375; 99285; J2405; J3010

== ENCOUNTER 2024-11-05 07:53 | Emergency (ER) | payer OTHER, MEDICARE, SELFPAY ==
[2024-11-05 08:06] VITALS: BP 175/108; PULSE 80; RESP 17; TEMP 36.7; O2SAT 100; BMI 27.4
[2024-11-05 08:14] LABS: Basophils # 0.1 10^3/uL (0.0-0.1); Basophils % 0.9 %; Eosinophils # 0.2 10^3/uL (0.0-0.8); Eosinophils % 3.9 %; Lymphocytes % 34.8 %; Mean Corpuscular HGB Conc 31.7 g/dL (30-55); Mean Corpuscular Hemoglobin 24.8 pg (27-33); Mean Corpuscular Volume 78.3 fl (85-98); Monocytes # 0.3 10^3/uL (0.2-0.9); Monocytes % 5.1 %; Neutrophils % 54.9 %; Nucleated Red Blood Cells % 0 %; Platelet Count 166 10^3/cmm (157-399); Red Cell Distribution Width 14.6 % (12.1-15.1); White Blood Count 5.64 10^3/uL (3.29-11.43)
--- NOTE | 2024-11-05 08:15 | ED_ITS ---
HPI - Abdominal Pain 2 General: Chief Complaint: Abdominal Pain Stated Complaint: abdominal pain Time Seen by Provider: 11/05/24 07:57 History of Present Illness: 69-year-old female who was seen several weeks ago for diverticulitis had mildly elevated white count was treated reports continuing to have lower abdominal/pelvic pain. She has not had any diarrhea no hematochezia or melena. She is been retreated as an outpatient initially with Augmentin and then with Cipro however at that time she did not have any metronidazole. She denies any dysuria urgency or frequency. Reviewing her previous CT there was a question of a left ovarian cyst with recommendation for follow-up she has not had that yet at this point. Patient is postmenopausal. No vaginal bleeding recently. Associated Symptoms: Denies chills, dysuria and fever(s) Related Data Home Medications ?Medication ?Instructions ?Recorded ?Confirmed ibuprofen 200 mg tablet (Advil) 800 mg PO Q6H PRN Feve r Or Pain 11/05/24 11/05/24 Previous Rx's ?Medication ?Instructions ?Recorded acetaminophen 500 mg tablet 1,000 mg (2 x 500 mg) PO Q 8H PRN 12/07/21 Pain #0 tabs alprazolam 0.25 mg tablet 0.25 mg PO BID PRN anxiety # 60 tabs 05/01/24 lisinopril 20 mg tablet 20 mg PO BID 90 days #180 ta bs 05/01/24 pantoprazole 40 mg tablet,delayed 40 mg PO BID 90 days #180 tabs 05/01/24 release (Protonix) zolpidem 10 mg tablet (Ambien) 10 mg PO .QHS 30 days # 30 tabs 05/01/24 ciprofloxacin HCl 500 mg tablet 500 mg PO BID #20 tabs 10/05/24 (Cipro) hydrocodone 5 mg-acetaminophen 325 1 tab PO Q6H PRN pa in #20 tabs 10/05/24 mg tablet promethazine 25 mg tablet 25 mg PO Q6H PRN nausea and 10/05/24 vomiting #20 tabs hydrocodone 5 mg-acetaminophen 325 1 tab PO Q6H PRN pa in #20 tabs 11/05/24 mg tablet Allergies Allergy/AdvReac Type Severity Reaction Status Date / Time sertraline (From Zoloft) Allergy ADR-Nausea Verified 12/08/23 09:33 tramadol Allergy ADR-Vomitin Verified 12/08/23 09:33 g simvastatin AdvReac muscle Verified 12/08/23 09:33 cramps Review of Systems 2 Const: Denies: fever(s) or chills Card: Denies: chest pain Resp: Denies: dyspnea GI: Reports: abdominal pain : Denies: dysuria, urinary frequency or urinary urgency Musc: Denies: neck pain or back pain Skin/Breast: Denies: rash PFSH ED 2 PFSH: Medical History Osteoporosis Paresthesia of right leg Left leg paresthesias Restless leg Thyroid nodule Surgical History History of back surgery Social History Smoking and tobacco/nicotine status: former use of tobacco/nicotine Second hand smoke exposure: No Alcohol intake: never Substance/Drug Use: never Caregiver/support person: Yes Lives independently: No Household members: family Marital status: service: No Current occupational status: employed Current occupation: [employer] Current gender identity: Female Special gerber needs: No Physical Exam 2 Const: GENERAL APPEARANCE: cooperative ORIENTATION/CONSCIOUSNESS: Yes awake, Yes oriented to person, Yes oriented to place and Yes oriented to time HENMT: COMMON NORMALS: normocephalic, atraumatic and hearing grossly normal bilaterally HEAD & SCALP: normocephalic and atraumatic Resp: COMMON NORMALS: normal respiratory effort, No retractions, No use of accessory muscles and clear to auscultation bilaterally AUSCULTATION: clear to auscultation bilaterally Cardio: COMMON NORMALS: regular rate, regular rhythm and No murmurs present (Cardio) RATE: regular rate RHYTHM: regular rhythm GI: COMMON NORMALS: No hepatosplenomegaly present AUSCULTATION: Yes normoactive bowel sounds PALPATION: Yes Tenderness to palpation present (GI) (Suprapubic left lower quadrant), No Guarding due to palpation present (GI) and Yes No hepatosplenomegaly present Extremity: COMMON NORMALS: normal to inspection, capillary refill normal, no clubbing, cyanosis or edema, no calf tenderness and no pedal edema Neuro: SENSORIUM/ORIENTATION: Yes oriented to person, Yes oriented to place and Yes oriented to time Skin: COMMON NORMALS: no rashes or lesions noted GENERAL SKIN EXAM: no rashes or lesions noted Course 2 Vital Signs: Vital signs: Vital Signs Temperature 98.1 F 11/05/24 08:06 Pulse Rate 78 11/05/24 11:59 Respiratory Rate 17 11/05/24 11:06 Blood Pressure 162/90 11/05/24 11:59 Pulse Oximetry 98 11/05/24 11:59 Oxygen Delivery Me thod Room Air 11/05/24 10:36 MDM - Abdominal Pain Medical Decision Making CT shows diverticuli without significant evidence of diverticulitis no leukocytosis. There is some mild thickening in the area of the sigmoid colon surrounding the diverticuli however reviewing radiology report believe this is a residual of her previous diverticulitis. She is quite reporting significant amount of discomfort. No other pathologic findings on the CT. Some fluid in the pelvis noted on the ultrasound no significant abnormality left ovary. Suspect the discomfort may be due to rupture of the ovarian cyst she should have this followed up with gynecology. UA was negative. We discussed possibly treating again for diverticulitis however given the amount of antibiotic she has been on recently with a normal white count and no significant findings on the CT did not recommend this strongly. After discussion with the patient she concurs and does not wish to do another round of antibiotics. Will refer her to women's health via case management. Medical Records I reviewed the patient's medical records. Lab Data I reviewed the patient's lab results. 11/05/24 08:04 11/05/24 08:04 Labs/Radiology: Radiology Impressions Pelvic/Transvag US 11/05/24 08:26 IMPRESSION: 1. LEFT ovarian follicle. No cyst or solid mass. 2. Small amount of physiologic free fluid in the cul-de-sac. 3. Normal endometrium. Abdomen/Pelvis CT 11/05/24 08:28 IMPRESSION: 1. Diverticula primarily involving the sigmoid colon. There may be minimal wall thickening involving the sigmoid colon which could represent a mild colitis/diverticulitis no adjacent inflammatory changes noted. Overall, findings appear to be improved when compared to prior exam. 2. Fatty infiltration of the liver. 3. 2 cm left adnexal/ovarian cyst.No further imaging is recommended. (Reference: Gerry) References: Gerry et al. Management of Incidental Adnexal Findings on CT and MRI: A White Paper of the ACR Incidental Findings Committee, J Am Zoe Radiol. 2019;17(2):248-254. COMMENTS: Consistent with the [place]'s Incidental Findings Committee white paper (J Am Zoe Radiol 2018): Any incidental renal lesion less than 1 cm or classified as too small to characterize, or any incidental cystic renal lesion characterized as simple-appearing, is likely benign. No follow-up imaging is recommended for these lesions per consensus recommendations based on imaging criteria. Laboratory Results WBC 5.64 10^3/uL (3.29-11.43) 11/05/24 08:04 RBC 4.60 10^6/uL (3.85-5.65) 11/05/24 08:04 Hgb 11.40 g/dL (11.27-16.99) 11/05/24 08:04 Hct 36.0 % (36-47) 11/05/24 08:04 MCV 78.3 fl (85-98) L 11/05/24 08:04 MCH 24.8 pg (27-33) L 11/05/24 08:04 MCHC 31.7 g/dL (30-55) 11/05/24 08:04 RDW 14.6 % (12.1-15.1) 11/05/24 08:04 Plt Count 166 10^3/cmm (157-399) 11/05/24 08:04 MPV 11.0 fL (7.4-10.4) H 11/05/24 08:04 Neut % (Auto) 54.9 % 11/05/24 08:04 Lymph % (Auto) 34.8 % 11/05/24 08:04 [place] % (Auto) 5.1 % 11/05/24 08:04 Eos % (Auto) 3.9 % 11/05/24 08:04 Baso % (Auto) 0.9 % 11/05/24 08:04 Neut # (Auto) 3.10 10^3/uL (1.8-7.7) 11/05/24 08:04 Lymph # (Auto) 2.0 10^3/uL (0.8-4.8) 11/05/24 08:04 [place] # (Auto) 0.3 10^3/uL (0.2-0.9) 11/05/24 08:04 Eos # (Auto) 0.2 10^3/uL (0.0-0.8) 11/05/24 08:04 Baso # (Auto) 0.1 10^3/uL (0.0-0.1) 11/05/24 08:04 Nucleated RBC % (auto) 0 % 11/05/24 08:04 Nucleated RBCs # 0.0 /100WBC 11/05/24 08:04 Sodium 137 mmol/L (136-145) 11/05/24 08:04 Potassium 4.1 mmol/L (3.5-5.1) 11/05/24 08:04 Chloride 103 mmol/L (98-107) 11/05/24 08:04 Carbon Dioxide 21 mmol/L (22-29) L 11/05/24 08:04 Anion Gap 17.1 (5-19) 11/05/24 08:04 BUN 12 mg/dL (8-23) 11/05/24 08:04 Creatinine 0.7 mg/dL (0.5-0.9) 11/05/24 08:04 GFR Calculation 83.2 mL/min (90-130) L 11/05/24 08:04 Glucose 221 mg/dL (65-115) H 11/05/24 08:04 Calculated Osmolality 291 mOsm/kg (285-295) 11/05/24 08:04 Calcium 9.4 mg/dL (8.5-10.5) 11/05/24 08:04 Total Bilirubin 0.3 mg/dL (0.15-1.2) 11/05/24 08:04 AST 17 U/L (0-32) 11/05/24 08:04 ALT 17 U/L (0-33) 11/05/24 08:04 Alkaline Phosphatase 73 U/L (35-105) 11/05/24 08:04 Total Protein 7.8 g/dL (6.6-8.7) 11/05/24 08:04 Albumin 5.0 g/dL (3.5-5.2) 11/05/24 08:04 Globulin 2.8 g/dL (1.3-4.6) 11/05/24 08:04 Lipase 73 U/L (13-60) H 11/05/24 08:04 Urine Color Yellow (Yellow) 11/05/24 10:35 Urine Appearance Clear (CLEAR) 11/05/24 10:35 Urine pH 5.0 (5-7) 11/05/24 10:35 Ur Specific [place] >= 1.099 (1.005-1.030) H 11/05/24 10:35 Urine Protein Trace (Negative) A 11/05/24 10:35 Urine Glucose (UA) Negative (Normal) 11/05/24 10:35 Urine Ketones Negative (Negative) 11/05/24 10:35 Urine Blood Non-haemolysed trace (Negative) 11/05/24 10:35 Urine Nitrate Negative (Negative) 11/05/24 10:35 Urine Bilirubin Negative (Negative) 11/05/24 10:35 Urine Urobilinogen 0.2 mg/dL (Negative) 11/05/24 10:35 Ur Leukocyte Esterase Negative (Negative) 11/05/24 10:35 Urine RBC 0-2 /hpf (0-2) 11/05/24 10:35 Urine WBC 0-5 /hpf (0-5) 11/05/24 10:35 Ur Squamous Epith Cells 0-5 /hpf (0-5) 11/05/24 10:35 Amorphous Sediment Not Reportable 11/05/24 10:35 Urine Bacteria None seen /hpf (NONE) 11/05/24 10:35 Hyaline Casts 0-4 /lpf H 11/05/24 10:35 All radiology interpretation(s) finalized by discharge Discharge Plan Discharge Patient Disposition: Home Clinical Impression: Pain, pelvic, female, Diverticula of colon Condition: Stable Prescriptions: New hydrocodone-acetaminophen 5-325 mg tablet 1 tab PO Q6H PRN (Reason: pain) Qty: 20 0RF No Action alprazolam 0.25 mg tablet 0.25 mg PO BID PRN (Reason: anxiety) Qty: 60 0RF lisinopril 20 mg tablet 20 mg PO BID 90 Days Qty: 180 1RF pantoprazole [Protonix] 40 mg tablet,delayed release (DR/EC) 40 mg PO BID 90 Days Qty: 180 1RF zolpidem [Ambien] 10 mg tablet 10 mg PO .QHS 30 Days Qty: 30 1RF ibuprofen [Advil] 200 mg Tablet 800 mg PO Q6H PRN (Reason: Fever Or Pain) acetaminophen 500 mg Tablet 1,000 mg PO Q8H PRN (Reason: Pain) Qty: 0 0RF hydrocodone-acetaminophen 5-325 mg tablet 1 tab PO Q6H PRN (Reason: pain) Qty: 20 0RF promethazine 25 mg tablet 25 mg PO Q6H PRN (Reason: nausea and vomiting) Qty: 20 0RF ciprofloxacin HCl [Cipro] 500 mg tablet 500 mg PO BID Qty: 20 0RF Discharge Orders: Discharge ED (Routine); Ordered 11/05/24 Ordered By: Benjamin Harvey Discharge Diet: Usual diet Discharge Activity: Limit activity as instructed Patient Instructions: Opioid Safety, Pain Management Activity Restrictions/Additional Instructions: Thank you for choosing [facility] for your healthcare needs today. It is very important that you follow up as instructed or that you return to the Emergency Department should you have concerns or if your condition changes or worsens in any way. You were seen in the emergency room with complaint of abdominal pain. CT did not show any acute diverticulitis and your white count was normal. Your urine was also normal. There is some fluid in the pelvis. We did do a ultrasound as well did not show any significant ovarian cyst. Concerned that some of the pain area having may be related gynecological issues will refer you to see [facility]. You are given pain medications to use as needed. Print Language: Occitan Coding Level of Care Code ED Machine Sprayer for Juliet Adams
--- NOTE | 2024-11-05 08:26 | US_ITS ---
WS: [id number] US pelvis lmt w transvag HISTORY: postmenopausal - L adnexal cyst COMPARISON: None available. Uterus: 5.4 cm x 4.0 cm x 2.6 cm. Normal size anteverted uterus. No fibroid or mass. Endometrium: 0.3 cm. Normal. Right ovary: Not visualized. Left ovary: 2.5 cm x 1.7 cm x 3.0 cm. Normal size and vascularity, no cystic or solid masses. Small follicle associated with the LEFT ovary measures 1.4 x 0.8 x 1.9 cm. Small amount of free fluid in the cul-de-sac. US/US pelvis lmt w transvag IMPRESSION: 1. LEFT ovarian follicle. No cyst or solid mass. 2. Small amount of physiologic free fluid in the cul-de-sac. 3. Normal endometrium.
--- NOTE | 2024-11-05 08:28 | CTR_ITS ---
PROCEDURE INFORMATION: Exam: CT Abdomen And Pelvis With Contrast Exam date and time: 11/05/2024 8:50 AM Age: 69 years old Clinical indication: Abdominal pain; Localized; Lower; Prior surgery; Surgery date: 6+ months; Surgery type: Gb, tubal; Additional info: Abd pain TECHNIQUE: Imaging protocol: Computed tomography of the abdomen and pelvis with contrast. Radiation optimization: All CT scans at this facility use at least one of these dose optimization techniques: automated exposure control; mA and/or kV adjustment per patient size (includes targeted exams where dose is matched to clinical indication); or iterative reconstruction. Contrast material: OMNI 350; Contrast volume: 100 ml; Contrast route: INTRAVENOUS (IV); COMPARISON: CT abdomen pelvis w con* [id number] 10/05/2024 4:15 PM RADIATION DOSE METRICS: Total DLP (mGy-cm): 546.98 FINDINGS: Lungs: Lung bases are clear as visualized. Diaphragm: There is a moderate-sized hiatal hernia. Liver: There is diffuse fatty infiltration of the liver. The liver is otherwise normal. Gallbladder and biliary ducts: The gallbladder is not identified. Pancreas: Normal. No ductal dilation. Spleen: Normal. No splenomegaly. Adrenal glands: Normal. No mass. Kidneys and ureters: There are small benign-appearing renal cysts. The kidneys are otherwise normal. Stomach and bowel: No dilated loops of large or small bowel is appreciated. There are scattered colonic diverticula. There is minimal wall thickening involving the sigmoid colon which could represent a mild diverticulitis. No adjacent inflammatory change is noted. There is a duodenal diverticulum. Appendix: The appendix is not definitely identified. Intraperitoneal space: Unremarkable. No free air. No significant fluid collection. Vasculature: The aorta is normal in caliber. There is calcified plaque involving the aorta and its branch vessels. Lymph nodes: Unremarkable. No enlarged lymph nodes. Urinary bladder: Unremarkable as visualized. Reproductive: There is a 2 cm left adnexal/ovarian cyst unchanged. No abnormalities are otherwise noted with regards to the reproductive organs. Bones/joints: Unremarkable. No acute fracture. Soft tissues: There is a fat filled periumbilical hernia. CT/CT abdomen pelvis w con* [id number] IMPRESSION: 1. Diverticula primarily involving the sigmoid colon. There may be minimal wall thickening involving the sigmoid colon which could represent a mild colitis/diverticulitis no adjacent inflammatory changes noted. Overall, findings appear to be improved when compared to prior exam. 2. Fatty infiltration of the liver. 3. 2 cm left adnexal/ovarian cyst.No further imaging is recommended. (Reference: Gerry) References: Gerry et al. Management of Incidental Adnexal Findings on CT and MRI: A White Paper of the ACR Incidental Findings Committee, J Am Zoe Radiol. 2019;17(2):248-254. COMMENTS: Consistent with the [place] [employer]'s Incidental Findings Committee white paper (J Am Zoe Radiol 2018): Any incidental renal lesion less than 1 cm or classified as too small to characterize, or any incidental cystic renal lesion characterized as simple-appearing, is likely benign. No follow-up imaging is recommended for these lesions per consensus recommendations based on imaging criteria.
[2024-11-05 08:37] LABS: Alanine Aminotransferase 17 U/L (0-33); Alkaline Phosphatase 73 U/L (35-105); Anion Gap 17.1 (5-19); Aspartate Amino Transferase 17 U/L (0-32); Blood Urea Nitrogen 12 mg/dL (8-23); Calcium 9.4 mg/dL (8.5-10.5); Carbon Dioxide 21 mmol/L (22-29); Chloride 103 mmol/L (98-107); Creatinine Clr Calc Pharmacy 65.7156; Globulin 2.8 g/dL (1.3-4.6); Glomerular Filtration Rate 83.2 mL/min (90-130); Glucose 221 mg/dL (65-115); Lipase 73 U/L (13-60); Osmolality Calculated 291 mOsm/kg (285-295); Potassium 4.1 mmol/L (3.5-5.1); Sodium 137 mmol/L (136-145); Total Bilirubin 0.3 mg/dL (0.15-1.2); Total Protein 7.8 g/dL (6.6-8.7)
[2024-11-05] MEDS: iohexol 350 mg/mL 500 mL Btl (per mL) IV (08:56)
[2024-11-05 09:38] VITALS: BP 159/97; PULSE 71; O2SAT 97
[2024-11-05 10:36] VITALS: BP 167/88; PULSE 86; O2SAT 100
[2024-11-05 10:56] LABS: Bilirubin Urine Negative (Negative); Blood Urine Non-haemolysed trace (Negative); Glucose Urine UA Negative (Normal); Ketones Urine Negative (Negative); Leukocyte Esterase Urine Negative (Negative); Nitrate Urine Negative (Negative); Protein Urine Trace (Negative); Urine Appearance Clear (CLEAR); Urine Color Yellow (Yellow); Urobilinogen Urine 0.2 mg/dL (Negative)
[2024-11-05 11:01] LABS: Add Urine Microscopic? YES; Bacteria Urine None Seen /hpf; Hyaline Casts Urine 0-4 /lpf; RBC Urine 0-2 /hpf (0-2); Squamous Epithelial Cell Urine 0-5 /hpf (0-5); WBC Urine 0-5 /hpf (0-5)
[2024-11-05] MEDS: ketorolac 30 mg/mL INJ IVP (11:05)
[2024-11-05 11:06] VITALS: RESP 17; O2SAT 99
[2024-11-05] MEDS: morphine 4 mg/mL SDV 1 mL 2 MG IVP (11:06)
[2024-11-05 11:16] LABS: Specific Gravity, Urine >= 1.099 (1.005-1.030)
[2024-11-05 11:17] LABS: Add Urine Culture? No
[2024-11-05] MEDS: lisinopril 20 mg Tablet PO (11:53)
[2024-11-05 11:59] VITALS: BP 162/90; PULSE 78; O2SAT 98
--- NOTE | 2024-11-06 10:54 | PC.SOCIAL ---
Women's Health F/u Msg sent to clinic at this time for f/u appt.
== END 2024-11-05 12:00 | disposition home or self-care (01) ==
PROVIDERS: Emergency Provider Family Medicine
DX: R10.2 Pelvic and perineal pain (principal); K57.30 Diverticulosis of large intestine without perforation or abscess without bleeding; Z87.891 Personal history of nicotine dependence
CPT/HCPCS: 36415; 74177; 76830; 76857; 80053; 81001; 83690; 85025; 96374; 96375; 99285; J1885; J2270; J9999

== ENCOUNTER 2025-01-05 18:52 | Emergency (ER) | payer OTHER, MEDICARE, SELFPAY ==
[2025-01-05 19:10] VITALS: BP 153/98; PULSE 105; RESP 18; TEMP 37.1; O2SAT 98; BMI 26.8
--- NOTE | 2025-01-05 20:41 | CTR_ITS ---
PROCEDURE INFORMATION: Exam: CT Abdomen And Pelvis With Contrast Exam date and time: 01/05/2025 9:05 PM Age: 69 years old Clinical indication: Mass, lump, or swelling; Abdominal pain; Localized; Right lower quadrant (rlq); Prior surgery; Surgery date: <1 month; Surgery type: Sigmoid resection 12/23/2024; C/O pain and swelling to rlq. Sigmoid resection due to diverticulitis 12/23/2024. ; Additional info: Post op pain / swelling in rlq TECHNIQUE: Imaging protocol: Computed tomography of the abdomen and pelvis with contrast. Radiation optimization: All CT scans at this facility use at least one of these dose optimization techniques: automated exposure control; mA and/or kV adjustment per patient size (includes targeted exams where dose is matched to clinical indication); or iterative reconstruction. Contrast material: OMNI 350; Contrast volume: 100 ml; Contrast route: INTRAVENOUS (IV); COMPARISON: CT abdomen pelvis w con* [id number] 11/05/2024 8:50 AM RADIATION DOSE METRICS: Total DLP (mGy-cm): 470.52 FINDINGS: Lungs: Minor areas of bibasilar atelectasis or scarring. Diaphragm: Moderate-sized hiatal hernia. Liver: Liver is mildly enlarged in steatotic. No suspicious mass. Few minute hepatic hypodensities. Gallbladder and biliary ducts: No calcified gallstones or biliary dilation identified. Pancreas: Unremarkable with no suspicious mass. No ductal dilation. Spleen: The spleen is not enlarged. No suspicious enhancing mass is noted. Adrenal glands: Normal. No mass. Kidneys and ureters: Small right renal cyst. No enhancing renal mass or hydronephrosis. Stomach and bowel: No small bowel obstruction or free air. No overt mucosal thickening. Mild diffuse colonic diverticulosis. Appendix: No evidence of appendicitis. Intraperitoneal space: Unremarkable. No free air. No suspicious fluid collection. Vasculature: Small pelvic phleboliths. Lymph nodes: No enlarged lymph nodes. Urinary bladder: Unremarkable as visualized. Reproductive: Small left ovarian cystic lesion. Bones/joints: No acute fracture. Spine degenerative change. Old-appearing mild T11 compression. Soft tissues: Small fat umbilical hernia. Anterior RLQ subcutaneous fat stranding/edema. This involves the abdominal wall. On series 3, image 58, there is a low-density area measuring about 38 x 21 mm. This may be fluid density. CT/CT abdomen pelvis w con* [id number] IMPRESSION: 1. RLQ subcutaneous edema and fat stranding. This may be due to postop edema or scarring, infection, etc. 2. RLQ subcutaneous/abdominal wall 4 x 2 cm possible fluid collection or developing fluid collection, as described. This may or may not be infected. 3. No small bowel obstruction, intraperitoneal abscess or free air. Sigmoid postop changes. 4. A few other chronic/incidental findings above. COMMENTS: Consistent with the [employer] [employer]'s Incidental Findings Committee white paper (J Am Zoe Radiol 2018): Any incidental renal lesion less than 1 cm or classified as too small to characterize, or any incidental cystic renal lesion characterized as simple-appearing, is likely benign. No follow-up imaging is recommended for these lesions per consensus recommendations based on imaging criteria.
[2025-01-05 20:43] VITALS: BP 125/89; PULSE 87; RESP 17; O2SAT 95
--- NOTE | 2025-01-05 20:44 | ED_ITS ---
HPI - Abdominal Pain General: Chief Complaint: Abdominal Pain Stated Complaint: 2 weeks post op, abd pain and buring, warm, lump Time Seen by Provider: 01/05/25 20:02 History of Present Illness: Patient presents for evaluation of post-operative swelling and redness at the surgical site following sigmoid colon resection performed on December 23, 2024, for chronic diverticulitis. Patient reports noticing redness and swelling at the surgical site last Monday, initially approximately 2 inches in diameter with an underlying hard mass. The area has progressively enlarged and become more painful with an associated burning sensation. Patient was previously evaluated by Dr. Crystal (Internal Medicine) who reportedly was not concerned. Patient reports experiencing fever up to 100.4?F until Monday. Notably, patient has concurrent pneumonia and is currently on day 4 of a 10-day course of Augmentin with three refills prescribed. Patient reports some improvement in pneumonia symptoms, though notes previous nocturnal oxygen desaturations to mid-80s. Pain at the surgical site is rated 6.5/10. Recent lab work at [facility] reportedly normal. Related Data Home Medications ?Medication ?Instructions ?Recorded ?Confirmed ibuprofen 200 mg tablet (Advil) 800 mg PO Q6H PRN Feve r Or Pain 11/05/24 11/11/24 Previous Rx's ?Medication ?Instructions ?Recorded acetaminophen 500 mg tablet 1,000 mg (2 x 500 mg) PO Q 8H PRN 12/07/21 Pain #0 tabs alprazolam 0.25 mg tablet 0.25 mg PO BID PRN anxiety # 60 tabs 05/01/24 lisinopril 20 mg tablet 20 mg PO BID 90 days #180 ta bs 05/01/24 pantoprazole 40 mg tablet,delayed 40 mg PO BID 90 days #180 tabs 05/01/24 release (Protonix) zolpidem 10 mg tablet (Ambien) 10 mg PO .QHS 30 days # 30 tabs 05/01/24 promethazine 25 mg tablet 25 mg PO Q6H PRN nausea and 10/05/24 vomiting #20 tabs doxycycline hyclate 100 mg capsule 100 mg PO BID 2 wee ks #28 caps 11/11/24 Allergies Allergy/AdvReac Type Severity Reaction Status Date / Time sertraline (From Zoloft) Allergy ADR-Nausea Verified 11/11/24 09:10 tramadol Allergy ADR-Vomitin Verified 11/11/24 09:10 g simvastatin AdvReac muscle Verified 11/11/24 09:10 cramps Review of Systems General: Reports: 10 or more systems reviewed and unremarkable except in HPI and below PFSH ED PFSH: Medical History Osteoporosis Paresthesia of right leg Left leg paresthesias Restless leg Thyroid nodule Surgical History History of back surgery Social History Smoking and tobacco/nicotine status: never used tobacco/nicotine Second hand smoke exposure: No Alcohol intake: never Substance/Drug Use: never Caregiver/support person: Yes Lives independently: No Household members: family Marital status: service: No Current occupational status: employed Current occupation: [employer] Current gender identity: Female Special gerber needs: No Physical Exam Const: COMMON NORMALS: no acute distress and patient oriented x3 EXAM LIMITATIONS: no altered mental status Chest: COMMONS NORMALS: normal inspection of the chest Resp: COMMON NORMALS: normal respiratory effort and No use of accessory muscles Cardio: COMMON NORMALS: regular rate and regular rhythm RATE: regular rate RHYTHM: regular rhythm GI: COMMON NORMALS: Normal to inspection, nondistended, normoactive bowel sounds present and Soft to palpation; negative for non-tender (Indurated tender area in SUBQ in RLQ) PALPATION: Yes Soft to palpation Neuro: COMMON NORMALS: patient oriented x3 Course Vital Signs: Vital signs: Vital Signs Temperature 98.7 F 01/05/25 19:10 Pulse Rate 74 01/05/25 22:00 Respiratory Rate 14 01/05/25 22:00 Blood Pressure 140/84 01/05/25 22:00 Pulse Oximetry 99 01/05/25 22:00 Oxygen Delivery Me thod Room Air 01/05/25 19:10 MDM - Abdominal Pain Medical Decision Making 1. Post-operative abdominal wall swelling, likely subcutaneous hematoma - CT scan ordered to rule out post-operative complications - Plan for warm compresses once diagnosis confirmed - Pain medication to be administered for current discomfort 2. Post-operative pneumonia - Currently on Augmentin therapy - Showing clinical improvement - Will review antibiotic duration and necessity of multiple refills 3. Plan: - Await CT scan results (estimated 90-minute turnaround time) - Further management to be determined based on imaging findings - Patient advised to remain in ED pending results Lab Data Labs/Radiology: Radiology Impressions Abdomen/Pelvis CT 01/05/25 20:41 IMPRESSION: 1. RLQ subcutaneous edema and fat stranding. This may be due to postop edema or scarring, infection, etc. 2. RLQ subcutaneous/abdominal wall 4 x 2 cm possible fluid collection or developing fluid collection, as described. This may or may not be infected. 3. No small bowel obstruction, intraperitoneal abscess or free air. Sigmoid postop changes. 4. A few other chronic/incidental findings above. COMMENTS: Consistent with the [employer]'s Incidental Findings Committee white paper (J Am Zoe Radiol 2018): Any incidental renal lesion less than 1 cm or classified as too small to characterize, or any incidental cystic renal lesion characterized as simple-appearing, is likely benign. No follow-up imaging is recommended for these lesions per consensus recommendations based on imaging criteria. Laboratory Results Urine Color Yellow (Yellow) 01/05/25 21:23 Urine Appearance Clear (CLEAR) 01/05/25 21:23 Urine pH 5.5 (5-7) 01/05/25 21:23 Ur Specific Constantia 1.035 (1.005-1.030) H 01/05/25 21:23 Urine Protein 1+ (Negative) A 01/05/25 21:23 Urine Glucose (UA) Trace (Normal) H 01/05/25 21:23 Urine Ketones Trace (Negative) 01/05/25 21:23 Urine Blood Negative (Negative) 01/05/25 21:23 Urine Nitrate Negative (Negative) 01/05/25 21:23 Urine Bilirubin Negative (Negative) 01/05/25 21:23 Urine Urobilinogen 1.0 mg/dL (Negative) 01/05/25 21:23 Ur Leukocyte Esterase Trace (Negative) A 01/05/25 21:23 Urine RBC 0-2 /hpf (0-2) 01/05/25 21:23 Urine WBC 6-10 /hpf (0-5) 01/05/25 21:23 Ur Squamous Epith Cells 0-5 /hpf (0-5) 01/05/25 21:23 Amorphous Sediment Not Reportable 01/05/25 21:23 Urine Bacteria None seen /hpf (NONE) 01/05/25 21:23 Hyaline Casts 2.05 /lpf 01/05/25 21:23 All radiology interpretation(s) finalized by discharge ED provider radiology interpretation(s): SUbQ fluid collection Other Data 69-year-old female who is postop colon surgery with concerns of abnormal fluid collection in the right lower quadrant subcutaneous/abdominal wall. This seems more like postoperative edema, hematoma less likely seroma or abscess. She has not run any fever she does not look toxic or ill and her exams not very impressive she previously had a white blood cell count that was normal. She is already on broad-spectrum antibiotics. Given all of the above facts and really like to just get her outpatient follow-up I do not feel strongly enough that she has serious infection or something that needs intervention currently. I detailed out return precautions and the fact that I would like to have her be seen by her surgeon first thing on Monday morning. It is currently Monday evening about 11:00 at night. Discharge Plan Discharge Patient Disposition: Home Clinical Impression: Post-operative pain, Abnormal computed tomography of abdomen and pelvis Condition: Stable Prescriptions: No Action alprazolam 0.25 mg tablet 0.25 mg PO BID PRN (Reason: anxiety) Qty: 60 0RF lisinopril 20 mg tablet 20 mg PO BID 90 Days Qty: 180 1RF pantoprazole [Protonix] 40 mg tablet,delayed release (DR/EC) 40 mg PO BID 90 Days Qty: 180 1RF zolpidem [Ambien] 10 mg tablet 10 mg PO .QHS 30 Days Qty: 30 1RF doxycycline hyclate 100 mg capsule 100 mg PO BID 14 Days Qty: 28 0RF ibuprofen [Advil] 200 mg Tablet 800 mg PO Q6H PRN (Reason: Fever Or Pain) acetaminophen 500 mg Tablet 1,000 mg PO Q8H PRN (Reason: Pain) Qty: 0 0RF promethazine 25 mg tablet 25 mg PO Q6H PRN (Reason: nausea and vomiting) Qty: 20 0RF Discharge Orders: Discharge ED (Routine); Ordered 01/05/25 Ordered By: Phil Vanegas Referrals: Mulu Barron APN [Primary Care Provider, Family Practice] Discharge Diet: Usual diet Discharge Activity: Limit activity as instructed Patient Instructions: Opioid Safety, Pain Management Activity Restrictions/Additional Instructions: 1. Rest, fluids and take antibiotics as directed. 2. To call surgeon on Monday morning for follow-up and evaluation and review of CT scan. 3. Take ibuprofen 600 800 mg every 6-8 hours as needed for pain can alternate 500 to 1000 mg of Tylenol every 6-8 hours as well. 4. Return for fever, vomiting, redness or purulent drainage. 5. Apply warm compresses to affected area. 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
[2025-01-05 21:00] VITALS: BP 138/80; PULSE 73; O2SAT 97
[2025-01-05] MEDS: iohexol 350 mg/mL 500 mL Btl (per mL) IV (21:07)
[2025-01-05] MEDS: fentaNYL 50 mcg/mL INJ 2mL IVP (21:16)
[2025-01-05] MEDS: ketorolac 30 mg/mL INJ IVP (21:17)
[2025-01-05 21:28] LABS: Bilirubin Urine Negative (Negative); Blood Urine Negative (Negative); Glucose Urine UA Trace (Normal); Ketones Urine Trace (Negative); Leukocyte Esterase Urine Trace (Negative); Nitrate Urine Negative (Negative); Protein Urine 1+ (Negative); Urine Appearance Clear (CLEAR); Urine Color Yellow (Yellow); pH Urine 5.5 (5-7)
[2025-01-05 21:30] VITALS: BP 151/101; PULSE 78; O2SAT 96
[2025-01-05 21:32] LABS: Add Urine Microscopic? YES; Bacteria Urine None Seen /hpf; Hyaline Casts Urine 2.05 /lpf; RBC Urine 0-2 /hpf (0-2); Squamous Epithelial Cell Urine 0-5 /hpf (0-5)
[2025-01-05 21:33] LABS: Specific Gravity, Urine 1.035 (1.005-1.030)
[2025-01-05 22:00] VITALS: BP 140/84; PULSE 74; RESP 14; O2SAT 99
[2025-01-05 23:10] VITALS: BP 131/96; PULSE 78; O2SAT 98
== END 2025-01-05 23:11 | disposition home or self-care (01) ==
PROVIDERS: Emergency Provider Family Medicine; PCP Nurse Practitioner Family
DX: G89.18 Other acute postprocedural pain (principal); R10.9 Unspecified abdominal pain; Z90.49 Acquired absence of other specified parts of digestive tract
CPT/HCPCS: 36415; 74177; 81001; 96374; 96375; 99285; J1885; J3010

== ENCOUNTER 2025-01-17 07:08 | Emergency (ER) | payer OTHER, MEDICARE, SELFPAY ==
[2025-01-17] VITALS (9 sets, daily range): BP systolic 110–172; BP diastolic 65–105; PULSE 79–90; RESP 16–18; TEMP 36.7; O2SAT 85–100; BMI 25.7
--- NOTE | 2025-01-17 07:11 | ECG_ITS ---
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
--- NOTE | 2025-01-17 09:25 | CT_ITS ---
WS: [id number] CT THORACIC SPINE TECHNIQUE: Noncontrast CT of the thoracic spine with coronal and sagittal reformatted images. CLINICAL INFORMATION: fall onto buttocks with reported pain COMPARISON: None. DLP: 959.[address] scans at [facility] use at least one of these dose optimization techniques: automated exposure control; mA and/or kV adjustment per patient size (includes targeted exams where dose is matched to clinical indication); or iterative reconstruction. FINDINGS: Mild thoracic curve. Mild thoracic kyphosis. Moderate spondylitic changes. No high-grade central canal stenosis. Schmorl's nodes with chronic anterior wedging at T11. Mild chronic anterior wedging in the midthoracic spine. No acute appearing compression fractures. Mild disc bulging T10-T11. Moderate facet arthropathy lower thoracic spine. Adrenal glands are normal. Moderate esophageal hiatal hernia. Fibrosis in the lung apices. CT/CT thoracic spin wo con* [id number] IMPRESSION: No acute thoracic spine findings.
--- NOTE | 2025-01-17 09:25 | CT_ITS ---
WS: [id number] CT LUMBAR SPINE TECHNIQUE: Noncontrast CT of the lumbar spine with coronal and sagittal reformatted images. CLINICAL INFORMATION: reported fall onto buttocks with increased pain h/o surgery COMPARISON: None. DLP: 959.[address] scans at [facility] use at least one of these dose optimization techniques: automated exposure control; mA and/or kV adjustment per patient size (includes targeted exams where dose is matched to clinical indication); or iterative reconstruction. FINDINGS: Mild lumbar curve. Osteopenia. No acute compression fractures. Bony fusion across the disc bases at L4-L5 and L5-S1. Advanced facet arthropathy lower lumbar spine. Tiny nondisplaced LEFT L1 transverse process fracture only well-seen on the coronal reformatted imaging L1-L2: Mild disc bulging. Slight effacement of the ventral thecal sac. Foramen are patent. Mild facet arthropathy. L2-L3: Mild disc bulging with a shallow central protrusion. Moderate central canal stenosis. Impingement subarticular recess. Moderate facet arthropathy. Moderate bilateral foraminal narrowing. L3-L4: Mild disc bulging with mild to moderate central canal stenosis. Moderate facet arthropathy. Ligamentum flavum hypertrophy. Mild bilateral foraminal narrowing. L4-L5: Disc space ankylosis. Mild LEFT foraminal narrowing. Impingement LEFT subarticular recess. Advanced facet arthropathy. L5-S1: Disc space ankylosis. Narrowing of the LEFT subarticular recess. Foramina are patent. Moderate to advanced facet arthropathy. CT/CT lumbar spine wo con* [id number] IMPRESSION: 1. Tiny nondisplaced LEFT L1 transverse process fracture best seen on the nena nal imaging. 2. No other acute fractures. 3. L4-L5 and L5-S1 bony fusion with fusion of the posterior elements. 4. Mild to moderate central canal stenosis at L2-3 and L3-4.
--- NOTE | 2025-01-17 09:28 | ED_ITS ---
HPI - Chest Pain 2 General: Chief Complaint: Chest Pain Stated Complaint: chest pain Time Seen by Provider: 01/17/25 08:50 History of Present Illness: 69-year-old female presents emergency de partment chief complaint of a fall she sustained on Monday ground-level onto her buttocks she does endorse moderate chest wall pain since as well as thoracic and lumbar back pain patient endorses previous recent surgery in which she did develop postoperative hematoma about 2 weeks ago. Patient reports chest wall pain with movement she does endorse increased numbness going on her left leg.does report a prior history of a L3-L4 fusion. Patient also endorses moderate thoracic back pain located in the mid back region she denies any head nor nor neck pain. Patient presents to the ER due to the increased pain and discomfort she does report a burning sensation wrapping around her chest. Patient reports no shortness of breath or palpitations she reports no weakness muscular weakness to her legs or her arms she presents to the emergency department for further assessment and management. Associated symptoms: Deny abdominal pain, dyspnea, fever(s), nausea, palpitations or vomiting Related Data Home Medications ?Medication ?Instructions ?Recorded ?Confirmed ibuprofen 200 mg tablet (Advil) 800 mg PO Q6H PRN Feve r Or Pain 11/05/24 11/11/24 Previous Rx's ?Medication ?Instructions ?Recorded acetaminophen 500 mg tablet 1,000 mg (2 x 500 mg) PO Q 8H PRN 12/07/21 Pain #0 tabs alprazolam 0.25 mg tablet 0.25 mg PO BID PRN anxiety # 60 tabs 05/01/24 lisinopril 20 mg tablet 20 mg PO BID 90 days #180 ta bs 05/01/24 pantoprazole 40 mg tablet,delayed 40 mg PO BID 90 days #180 tabs 05/01/24 release (Protonix) zolpidem 10 mg tablet (Ambien) 10 mg PO .QHS 30 days # 30 tabs 05/01/24 promethazine 25 mg tablet 25 mg PO Q6H PRN nausea and 10/05/24 vomiting #20 tabs doxycycline hyclate 100 mg capsule 100 mg PO BID 2 wee ks #28 caps 11/11/24 gabapentin 300 mg capsule 300 mg PO Q12H #14 caps 02/05 (Neurontin) hydrocodone 5 mg-acetaminophen 325 1 tab PO Q12H PRN s evere pain 01/17/25 mg tablet (scale score 7-10) #6 tabs methocarbamol 500 mg tablet 500 mg PO Q6H PRN spasm #2 0 tabs 01/17/25 prednisone 20 mg tablet 20 mg PO BID 7 days #14 tabs 01/17/25 Allergies Allergy/AdvReac Type Severity Reaction Status Date / Time sertraline (From Zoloft) Allergy ADR-Nausea Verified 11/11/24 09:10 tramadol Allergy ADR-Vomitin Verified 11/11/24 09:10 g simvastatin AdvReac muscle Verified 11/11/24 09:10 cramps Review of Systems 2 General: Reports: 10 or more systems reviewed and unremarkable except in HPI and below Const: Denies: fever(s), chills, fatigue or malaise Eyes: Denies: change in vision or blurry vision Card: Reports: chest pain; Denies: palpitations Resp: Denies: dyspnea or productive cough GI: Denies: abdominal pain, nausea or vomiting : Denies: flank pain Musc: Reports: back pain; Denies: extremity pain or extremity swelling Skin/Breast: Denies: rash or pruritus Neuro: Denies: headache(s) Psych: Denies: anxiety or depression L[place]ito/Lymph: Denies: easy bleeding All/Imm: Denies: urticaria, throat swelling or facial swelling PFSH ED 2 PFSH: Medical History Osteoporosis Paresthesia of right leg Left leg paresthesias Restless leg Thyroid nodule Surgical History History of back surgery Social History Smoking and tobacco/nicotine status: never used tobacco/nicotine Second hand smoke exposure: No Alcohol intake: never Substance/Drug Use: never Caregiver/support person: Yes Lives independently: No Household members: family Marital status: service: No Current occupational status: employed Current occupation: [employer] Current gender identity: Female Special gerber needs: No Physical Exam 2 Const: COMMON NORMALS: no acute distress, patient oriented x3 and healthy appearing HENMT: COMMON NORMALS: normocephalic and atraumatic HEAD & SCALP: n ormocephalic and atraumatic Eye: COMMON NORMALS: Equal, round and reactive pupils present and EOMs intact bilaterally PUPIL: Yes Equal, round and reactive pupils present Neck/C-Spine: COMMON NORMALS: full ROM, supple and no JVD Lymph: LYMPHATIC: no lymphadenopathy noted Chest: COMMONS NORMALS: normal inspection of the chest and normal palpation of entire chest wall OTHER: Reproducible chest wall pain no nose ecchymosis step-offs or crepitus noted equal breath sounds appreciated bilaterally Resp: COMMON NORMALS: normal respiratory effort, No retractions and clear to auscultation bilaterally EFFORT & INSPECTION: Yes able to speak in complete sentences and Yes symmetric chest movement AUSCULTATION: clear to auscultation bilaterally Cardio: COMMON NORMALS: no JVD, regular rate and regular rhythm RATE: r egular rate RHYTHM: regular rhythm GI: COMMON NORMALS: Normal to inspection, nondistended, normoactive bowel sounds present, Soft to palpation and non-tender INSPECTION: Yes normal to inspection PALPATION: Yes Soft to palpation : COMMON NORMALS: Yes no CVA tenderness BLADDER/KIDNEY EXAM: Yes no CVA tenderness Back/Pelvis: COMMON NORMALS: no CVA tenderness OTHER: Moderate pain to palpation located to the thoracic and lumbar back no obvious step-offs or crepitus noted patient Dors is subjective numbness going to the left leg but no obvious objective weakness present Extremity: COMMON NORMALS: normal to inspection and full ROM Neuro: COMMON NORMALS: patient oriented x3, CN's II-XII intact bilaterally, moves all extremities and no focal motor deficits Psych: COMMON NORMALS: mental status grossly normal, Normal thought process present, cooperative and normal affect THOUGHT PROCESS: Normal thought process present Skin: COMMON NORMALS: no rashes or lesions noted GENERAL SKIN EXAM: no rashes or lesions noted Course 2 Vital Signs: Vital signs: Vital Signs Temperature 98.0 F 01/17/25 07:16 Pulse Rate 83 01/17/25 12:34 Respiratory Rate 16 01/17/25 12:34 Blood Pressure 147/85 01/17/25 12:34 Pulse Oximetry 85 L 01/17/25 12:34 Oxygen Delivery Me thod Room Air 01/17/25 07:16 MDM - Chest Pain Medical Decision Making Due to patient's symptoms and condition IV established basic lab work imaging obtained patient on exam there is concerning findings for thoracic or lumbar radiculopathy patient's EKG appears unremarkable rib series will also be obtained to rule out obscured rib fracture. However based upon the remainder of patient's symptoms in the context of the fall believe that this is low likelihood. Will continue to follow Rib series came back unremarkable no acute fractures noted the patient was found to have L1 appearing acute transverse process fracture but none displaced located on the left. Patient also found to have some moderate canal stenosis L2-L3 L3-L4 with no acute thoracic spine findings appreciated. Patient's labs came back reassuring. Patient stable for discharge home advised further follow- up with primary care in 2 to 3 days and was to return the interim if any of her symptoms persist or worse. Lab Data 01/17/25 09:35 01/17/25 09:35 Radiology Impressions Lumbar Spine CT 01/17/25 09:25 IMPRESSION: 1. Tiny nondisplaced LEFT L1 transverse process fracture best seen on the coronal imaging. 2. No other acute fractures. 3. L4-L5 and L5-S1 bony fusion with fusion of the posterior elements. 4. Mild to moderate central canal stenosis at L2-3 and L3-4. Thoracic Spine CT 01/17/25 09:25 IMPRESSION: No acute thoracic spine findings. Ribs w/Chest X-Ray 01/17/25 10:53 IMPRESSION: No acute abnormality of the right or ribs as above. Laboratory Results WBC 6.63 10^3/uL (3.29-11.43) 01/17/25 09:35 RBC 4.38 10^6/uL (3.85-5.65) 01/17/25 09:35 Hgb 10.90 g/dL (11.27-16.99) L 01/17/25 09:35 Hct 35.3 % (36-47) L 01/17/25 09:35 MCV 80.6 fl (85-98) L 01/17/25 09:35 MCH 24.9 pg (27-33) L 01/17/25 09:35 MCHC 30.9 g/dL (30-55) 01/17/25 09:35 RDW 15.0 % (12.1-15.1) 01/17/25 09:35 Plt Count 232 10^3/cmm (157-399) 01/17/25 09:35 MPV 10.6 fL (7.4-10.4) H 01/17/25 09:35 Neut % (Auto) 67.2 % 01/17/25 09:35 Lymph % (Auto) 22.9 % 01/17/25 09:35 [place] % (Auto) 7.7 % 01/17/25 09:35 Eos % (Auto) 1.4 % 01/17/25 09:35 Baso % (Auto) 0.6 % 01/17/25 09:35 Neut # (Auto) 4.46 10^3/uL (1.8-7.7) 01/17/25 09:35 Lymph # (Auto) 1.5 10^3/uL (0.8-4.8) 01/17/25 09:35 [place] # (Auto) 0.5 10^3/uL (0.2-0.9) 01/17/25 09:35 Eos # (Auto) 0.1 10^3/uL (0.0-0.8) 01/17/25 09:35 Baso # (Auto) 0.0 10^3/uL (0.0-0.1) 01/17/25 09:35 Nucleated RBC % (auto) 0 % 01/17/25 09:35 Nucleated RBCs # 0.0 /100WBC 01/17/25 09:35 Sodium 136 mmol/L (136-145) 01/17/25 09:35 Potassium 4.3 mmol/L (3.5-5.1) 01/17/25 09:35 Chloride 100 mmol/L (98-107) 01/17/25 09:35 Carbon Dioxide 23 mmol/L (22-29) 01/17/25 09:35 Anion Gap 17.3 (5-19) 01/17/25 09:35 BUN 11 mg/dL (8-23) 01/17/25 09:35 Creatinine 0.7 mg/dL (0.5-0.9) 01/17/25 09:35 GFR Calculation 83.2 mL/min (90-130) L 01/17/25 09:35 Glucose 103 mg/dL (65-115) 01/17/25 09:35 Calculated Osmolality 282 mOsm/kg (285-295) L 01/17/25 09:35 Calcium 9.7 mg/dL (8.5-10.5) 01/17/25 09:35 Total Bilirubin 0.3 mg/dL (0.15-1.2) 01/17/25 09:35 AST 16 U/L (0-32) 01/17/25 09:35 ALT 12 U/L (0-33) 01/17/25 09:35 Alkaline Phosphatase 86 U/L (35-105) 01/17/25 09:35 Troponin T Baseline < 6 ng/L (0-10) 01/17/25 09:35 C-Reactive Protein 8.5 mg/L (0.0-4.9) H 01/17/25 09:35 Total Protein 7.8 g/dL (6.6-8.7) 01/17/25 09:35 Albumin 4.9 g/dL (3.5-5.2) 01/17/25 09:35 Globulin 2.9 g/dL (1.3-4.6) 01/17/25 09:35 Urine Color Yellow (Yellow) 01/17/25 09:55 Urine Appearance Clear (CLEAR) 01/17/25 09:55 Urine pH 5.5 (5-7) 01/17/25 09:55 Ur Specific [place] 1.017 (1.005-1.030) 01/17/25 09:55 Urine Protein Negative (Negative) 01/17/25 09:55 Urine Glucose (UA) Negative (Normal) 01/17/25 09:55 Urine Ketones Negative (Negative) 01/17/25 09:55 Urine Blood Negative (Negative) 01/17/25 09:55 Urine Nitrate Negative (Negative) 01/17/25 09:55 Urine Bilirubin Negative (Negative) 01/17/25 09:55 Urine Urobilinogen 0.2 mg/dL (Negative) 01/17/25 09:55 Ur Leukocyte Esterase 1+ (Negative) A 01/17/25 09:55 Urine RBC 0-2 /hpf (0-2) 01/17/25 09:55 Urine WBC 0-5 /hpf (0-5) 01/17/25 09:55 Ur Squamous Epith Cells 0-5 /hpf (0-5) 01/17/25 09:55 Amorphous Sediment Not Reportable 01/17/25 09:55 Urine Bacteria None seen /hpf (NONE) 01/17/25 09:55 Hyaline Casts 0-4 /lpf H 01/17/25 09:55 All radiology interpretation(s) finalized by discharge Discharge Plan Discharge Patient Disposition: Home Clinical Impression: Anterior chest wall pain Fracture of transverse process of lumbar vertebra Qualifiers: Encounter type: initial encounter Fracture type: closed Qualified Code(s): S 32.009A - Unspecified fracture of unspecified lumbar vertebra, initial encounter for closed fracture Fall from standing Qualifiers: Encounter type: initial encounter Qualified Code(s): W19.XXXA - Unspecified fall, initial encounter Lumbar canal stenosis Qualifiers: Neurogenic claudication status: unspecified Qualified Code(s): M48.061 - Spinal stenosis, lumbar region without neurogenic claudication Condition: Stable Prescriptions: New methocarbamol 500 mg tablet 500 mg PO Q6H PRN (Reason: spasm) Qty: 20 0RF prednisone 20 mg tablet 20 mg PO BID 7 Days Qty: 14 0RF gabapentin [Neurontin] 300 mg capsule 300 mg PO Q12H Qty: 14 0RF hydrocodone-acetaminophen 5-325 mg tablet 1 tab PO Q12H PRN (Reason: severe pain (scale score 7-10)) Qty: 6 0RF No Action alprazolam 0.25 mg tablet 0.25 mg PO BID PRN (Reason: anxiety) Qty: 60 0RF lisinopril 20 mg tablet 20 mg PO BID 90 Days Qty: 180 1RF pantoprazole [Protonix] 40 mg tablet,delayed release (DR/EC) 40 mg PO BID 90 Days Qty: 180 1RF zolpidem [Ambien] 10 mg tablet 10 mg PO .QHS 30 Days Qty: 30 1RF doxycycline hyclate 100 mg capsule 100 mg PO BID 14 Days Qty: 28 0RF ibuprofen [Advil] 200 mg Tablet 800 mg PO Q6H PRN (Reason: Fever Or Pain) acetaminophen 500 mg Tablet 1,000 mg PO Q8H PRN (Reason: Pain) Qty: 0 0RF promethazine 25 mg tablet 25 mg PO Q6H PRN (Reason: nausea and vomiting) Qty: 20 0RF Discharge Orders: Discharge ED (Routine); Ordered 01/17/25 Ordered By: Corky Goldman Referrals: Mulu Barron APN [Primary Care Provider, Family Practice] - 1-3 days Discharge Diet: Advance as tolerated Discharge Activity: Increase activity as tolerated Patient Instructions: Chest Pain - Chest Wall, Lumbar Radiculopathy (ED), Fall Prevention (ED), Transverse Process Fracture (ED), Opioid Safety, Pain Management Print Language: Italian Coding Level of Care Code ED Front Clerk for Juliet Adams
[2025-01-17 09:41] LABS: Basophils % 0.6 %; Eosinophils # 0.1 10^3/uL (0.0-0.8); Eosinophils % 1.4 %; Hematocrit 35.3 % (36-47); Lymphocytes # 1.5 10^3/uL (0.8-4.8); Lymphocytes % 22.9 %; Mean Corpuscular HGB Conc 30.9 g/dL (30-55); Mean Corpuscular Hemoglobin 24.9 pg (27-33); Mean Corpuscular Volume 80.6 fl (85-98); Mean Platelet Volume 10.6 fL (7.4-10.4); Monocytes # 0.5 10^3/uL (0.2-0.9); Monocytes % 7.7 %; Neutrophils # 4.46 10^3/uL (1.8-7.7); Neutrophils % 67.2 %; Nucleated Red Blood Cells % 0 %; Platelet Count 232 10^3/cmm (157-399); Red Blood Count 4.38 10^6/uL (3.85-5.65); White Blood Count 6.63 10^3/uL (3.29-11.43)
[2025-01-17] MEDS: ketorolac 30 mg/mL INJ 15 MG IVP (09:48)
[2025-01-17] MEDS: methylPREDNISolone sod succ 125 mg/2 mL INJ 80 MG IVP (09:48)
[2025-01-17] MEDS: sodium chloride 0.9% 1,000 ML 999 ML IV (09:48)
[2025-01-17] MEDS: methocarbamol 750 mg Tablet PO (09:49)
[2025-01-17] MEDS: ondansetron 2 mg/ML SDV 2 mL 4 MG IVP (09:51)
[2025-01-17 09:59] LABS: Troponin(5th) Baseline < 6 ng/L (0-10)
[2025-01-17 10:04] LABS: Alanine Aminotransferase 12 U/L (0-33); Albumin Level 4.9 g/dL (3.5-5.2); Alkaline Phosphatase 86 U/L (35-105); Anion Gap 17.3 (5-19); Aspartate Amino Transferase 16 U/L (0-32); Blood Urea Nitrogen 11 mg/dL (8-23); C Reactive Protein 8.5 mg/L (0.0-4.9); Calcium 9.7 mg/dL (8.5-10.5); Carbon Dioxide 23 mmol/L (22-29); Chloride 100 mmol/L (98-107); Creatinine Clr Calc Pharmacy 63.7878; Globulin 2.9 g/dL (1.3-4.6); Glomerular Filtration Rate 83.2 mL/min (90-130); Glucose 103 mg/dL (65-115); Osmolality Calculated 282 mOsm/kg (285-295); Potassium 4.3 mmol/L (3.5-5.1); Sodium 136 mmol/L (136-145); Total Bilirubin 0.3 mg/dL (0.15-1.2); Total Protein 7.8 g/dL (6.6-8.7)
[2025-01-17 10:04] LABS: Bilirubin Urine Negative (Negative); Blood Urine Negative (Negative); Glucose Urine UA Negative (Normal); Ketones Urine Negative (Negative); Leukocyte Esterase Urine 1+ (Negative); Nitrate Urine Negative (Negative); Protein Urine Negative (Negative); Specific Gravity, Urine 1.017 (1.005-1.030); Urine Appearance Clear (CLEAR); Urine Color Yellow (Yellow); Urobilinogen Urine 0.2 mg/dL (Negative); pH Urine 5.5 (5-7)
[2025-01-17 10:09] LABS: Add Urine Microscopic? YES; Bacteria Urine None Seen /hpf; Hyaline Casts Urine 0-4 /lpf; RBC Urine 0-2 /hpf (0-2); Squamous Epithelial Cell Urine 0-5 /hpf (0-5); WBC Urine 0-5 /hpf (0-5)
--- NOTE | 2025-01-17 10:53 | XR_ITS ---
WS: [id number] XR ribs BI mn 4V w [id number] REASON FOR EXAM: BILATERAL RIB PAIN FINDINGS: No fracture or focal lesion of the right or left ribs. No acute pulmonary parenchymal or pleural abnormality within the chest. XR/XR ribs BI mn 4V w [id number] IMPRESSION: No acute abnormality of the right or ribs as above.
[2025-01-17] MEDS: gabapentin 300 mg Capsule PO (11:46)
== END 2025-01-17 13:21 | disposition home or self-care (01) ==
PROVIDERS: Emergency Provider Emergency Medicine; PCP Nurse Practitioner Family
DX: R07.89 Other chest pain (principal); S32.009A Unspecified fracture of unspecified lumbar vertebra, initial encounter for closed fracture; W19.XXXA Unspecified fall, initial encounter; M48.061 Spinal stenosis, lumbar region without neurogenic claudication
CPT/HCPCS: 36415; 71111; 72128; 72131; 80053; 81001; 84484; 85025; 86140; 93005; 96361; 96374; 96375; 99285; J1885; J2405; J2919; J7030; J9999

== ENCOUNTER → 2025-01-23 13:22 | Outpatient (BNVA) | payer OTHER, MEDICARE, SELFPAY | PROVIDERS: PCP Nurse Practitioner Family; Visit Provider Orthopaedic Surgery | DX: S32.009A Unspecified fracture of unspecified lumbar vertebra, initial encounter for closed fracture (principal); W19.XXXA Unspecified fall, initial encounter | CPT/HCPCS: 72072; 72110 ==

== ENCOUNTER 2025-01-28 13:57 | Outpatient (CLI) | payer OTHER, MEDICARE, SELFPAY ==
--- NOTE | 2025-01-28 14:30 | MR_ITS ---
WS: [id number] MRI LUMBAR SPINE NONCONTRAST HISTORY: fall from standing COMPARISON: CT lumbar spine 01/17/2025 TECHNIQUE: Sagittal and axial multisequence imaging is submitted. Straightening of the normal lumbar lordosis. Reidentified are chronic fractures at T11 and T12. No marrow edema. Advanced degenerative disc space narrowing at L4-5 and L5. Moderate degenerative disc changes in the remaining lumbar vertebral body. Conus terminates normally at L1-2 disc level. L1-L2: Mild annular disc bulging with mild ligamentum flavum and facet arthritis. Mild bilateral foraminal stenosis. L2-L3: Moderate diffuse annular disc bulging with significant encroachment upon the ventral thecal sac and subarticular recesses. Marked ligamentum flavum and facet arthritis. Bilateral foraminal disc osteophyte complexes. Moderate to severe central with bilateral subarticular recess and moderate foraminal stenosis. There is significant disc contact on the traversing L3 nerve roots. L3-L4: Diffuse annular disc bulging with slight asymmetric bulging to the LEFT. Marked ligamentum flavum and facet arthritis. Moderate central, bilateral subarticular recess and mild foraminal stenosis. L4-L5: Marked ankylosis of the facet joint. Mild deformity of the thecal sac. Mild central, subarticular recess and foraminal stenosis. L5-S1: Ankylosis at this level as also seen on recent CT. No central stenosis. Mild encroachment upon the S1 nerve roots, LEFT greater than RIGHT. Small bilateral foraminal osteophytes and mild foraminal stenosis. Contusion injury within the soft tissues posterior to L5-S1. Soft tissue edema extends over a length of at least 6.7 cm over the pelvis. Subcu edema is noted bilaterally and extends centrally to the paraspinal soft tissues at L5 and S1. No marrow edema is noted within the sacrum included on this exam. MR/MR lumbar spine wo con* [id number] IMPRESSION: 1. No acute lumbar spine fracture identified. 2. Extensive soft tissue edema centered posteriorly at the L5-S1 level extendi ng inferiorly over the sacrum. Subcutaneous edema extends to the paraspinal sof t tissues of L5 and S1 facets. Edema is closely associated with the ankylosis o f the facet joints at L5 and S1. No obvious fractures are identified. 3. L2-3: Moderate to severe central with bilateral subarticular recess and for aminal stenosis. 4. L3-4: Moderate central, bilateral subarticular recess and mild foraminal st enosis. 5. L4-5: Mild central, subarticular recess and foraminal stenosis. 6. L5-S1: Mild subarticular and foraminal stenosis.
--- NOTE | 2025-01-28 15:15 | MR_ITS ---
WS: [id number] MRI THORACIC SPINE noncontrast HISTORY: fall from standing COMPARISON: Radiographs 01/23/2025, CT thoracic spine 01/17/2025 TECHNIQUE: Multiplanar sequences are performed in sagittal and axial planes. Mild degenerative disc disease in the cervical spine. Normal alignment. Mild increase in thoracic kyphosis. Mild anterior wedging of T7 without retropulsion. Very slight loss of height involving T10 and T11. Schmorl's node defect at T11. No marrow edema noted in the thoracic vertebral bodies. T1-2: Slight disc bulge. T2-3: Normal. T3-4: Mild facet arthritis and foraminal narrowing. T4-5: Normal. T5-6: Normal. T6-7: Mild facet arthritis. T7-8: Mild disc bulging and facet arthritis. Mild foraminal narrowing. T8-9: Mild to moderate bilateral foraminal stenosis and facet arthritis. T9-10: Moderate bilateral facet arthritis and foraminal stenosis. T10-11: Moderate facet arthritis and foraminal stenosis. T11-12: RIGHT nerve root sleeve diverticulum. Moderate facet arthropathy and foraminal stenosis. MR/MR thoracic spin wo con* [id number] IMPRESSION: 1. No acute thoracic spine fracture identified. There is no marrow edema. 2. Mild anterior wedging and remote fractures involving T7, T10 and T11. 3. No cord compression.
== END 2025-01-28 13:58 | disposition home or self-care (01) ==
PROVIDERS: PCP Nurse Practitioner Family; Visit Provider Orthopaedic Surgery
DX: M48.061 Spinal stenosis, lumbar region without neurogenic claudication (principal); M43.27 Fusion of spine, lumbosacral region; M48.54XA Collapsed vertebra, not elsewhere classified, thoracic region, initial encounter for fracture; W19.XXXA Unspecified fall, initial encounter
CPT/HCPCS: 72146; 72148

== ENCOUNTER → 2025-01-30 08:27 | Outpatient (BNVA) | payer MEDICARE, SELFPAY | PROVIDERS: PCP Nurse Practitioner Family; Visit Provider Orthopaedic Surgery | DX: M54.50 Low back pain, unspecified (principal); S32.009A Unspecified fracture of unspecified lumbar vertebra, initial encounter for closed fracture; W19.XXXA Unspecified fall, initial encounter; Z09 Encounter for follow-up examination after completed treatment for conditions other than malignant neoplasm | CPT/HCPCS: 99214 ==

== ENCOUNTER → 2025-05-06 09:09 | Outpatient (BNVA) | payer MEDICARE, SELFPAY | PROVIDERS: PCP Family Medicine; Visit Provider Family Medicine | DX: I10 Essential (primary) hypertension (principal); D50.9 Iron deficiency anemia, unspecified | CPT/HCPCS: 80053; 80061; 82728; 83036; 83550; 84439; 84443; 85025 ==